=== PATIENT | male | born 1975 | race Caucasian/White ===

== ENCOUNTER 2025-03-30 10:46 | Inpatient (IN) | payer OTHER, SELFPAY ==
[2025-03-30] VITALS (53 sets, daily range): BP systolic 101–214; BP diastolic 64–148; PULSE 9–104; RESP 12–25; TEMP 36.6–38.5; O2SAT 88–99; BMI 31.9
--- NOTE | 2025-03-30 | ECHO_ITS ---
Patient Info Name: Jayden Ordaz Age: 49 years : 1975 Gender: Male Ht: 67 in Wt: 218 lbs BSA: 2.20 m2 HR: 80 bpm BP: 160 / 113 mmHg Technical Quality: Good Exam Date: 03/30/2025 12:56 PM Patient Status: O Admit Date: 03/30/2025 Exam Type: CA echo doppler w bubble study Complete two-dimensional, color flow and Doppler transthoracic echocardiogram is performed with agitated saline. Staff Referring Physician: Christopher Arguelles Accounts Receivable Manager: Davide Hancock III Attending Provider: Marii Grissom Contrast/Agitated Saline Contrast/Ag. Saline: Agitated Saline Amount: 12.00 ml Administered By: Davide Hancock III Existing IV Access: Yes IV Access Condition: patent with no signs of infiltration Summary 1. Left ventricular systolic function is normal, estimated at 50-55. 2. There is mildly increased left ventricular wall thickness. 3. The left ventricular diastolic function is grade I diastolic dysfunction. 4. The apical septum, apical cap, basal anteroseptal, and mid anteroseptal are hypokinetic. 5. Intact interatrial septum visualized by agitated saline imaging. 6. There is mild mitral valve regurgitation. Left Ventricle Left ventricular chamber dimension is normal. Left ventricular systolic function is normal, estimated at 50-55. There is mildly increased left ventricular wall thickness. Left ventricular septal wall motion is normal. The left ventricular diastolic function is grade I diastolic dysfunction. The apical septum, apical cap, basal anteroseptal, and mid anteroseptal are hypokinetic. Right Ventricle Right ventricular chamber dimension is normal. Right ventricular systolic function is normal. Left Atria Left atrial chamber dimension is normal. Right Atria Right atrial chamber dimension is normal. Atrial Septum Intact interatrial septum visualized by agitated saline imaging. Aortic Valve The aortic valve is trileaflet. There is no aortic valve sclerosis. There is no aortic valve stenosis. There is no aortic valve regurgitation. Pulmonic Valve The pulmonic valve is normal. There is no pulmonic valve stenosis. There is no pulmonic regurgitation. Mitral Valve The mitral valve has normal leaflets. There is no mitral valve stenosis. There is mild mitral valve regurgitation. Tricuspid Valve The tricuspid valve leaflets are normal. There is no significant tricuspid valve stenosis. There is no tricuspid valve regurgitation. Pericardium/Pleural The pericardium appears normal. There is no pericardial effusion. Inferior Vena Cava Normal inferior vena cava with >50% collapse upon inspiration consistent with normal right atrial pressure, 5 mmHg. Aorta The aortic root size at the sinus of Valsalva is normal. The prox ascending aorta size is normal. Left Ventricular Outflow Tract Name Value Normal LVOT 2D LVOT Diameter 2.4 cm LVOT Doppler LVOT Peak Velocity 70 cm/s LVOT Peak Gradient 2 mmHg LVOT Mean Gradient 1 mmHg LVOT VTI 16 cm LVOT VTI/AV VTI Ratio 1.0 LVOT Stroke Volume 73 ml LVOT CO 5.4 l/min LVOT CI 2.5 l/min/m2 Pulmonic Valve Name Value Normal PV Doppler PV Peak Velocity 92 cm/s PV Peak Gradient 3 mmHg PV Mean Gradient 2 mmHg Mitral Valve Name Value Normal MV Doppler MV Peak Gradient 3 mmHg MV Mean Gradient 1 mmHg MV Area (Cont Eq VTI) 5.0 cm2 MV Diastolic Function MV E Peak Velocity 57 cm/s MV A Peak Velocity 78 cm/s MV E/A 0.7 MV Decel Time (PW) 124 ms MV Annular TDI MV E/e' (Septal) 11.1 MV E/e' (Lateral) 11.5 MV E/e' (Average) 11.3 Tricuspid Valve Name Value Normal Estimated PAP/RSVP RA Pressure 5 mmHg <=5 TV Annular TDI TV Lateral Gladys s' Velocity 15.5 cm/s >=9.5 Aortic Valve Name Value Normal AV Doppler AV Peak Velocity 90 cm/s AV Peak Gradient 3 mmHg AV Mean Gradient 2 mmHg AV VTI 16 cm AV Area (Cont Eq VTI) 4.5 cm2 >=3.0 AV Area (Cont Eq Raji) 3.5 cm2 AV DI (Raji) 0.78 AV Regurgitation 2D LVOT Area 4.5 cm2 Ventricles Name Value Normal LV Dimensions 2D/MM IVS Diastolic Thickness (2D) 1.0 cm 0.6-1.0 LVID Diastole (2D) 5.1 cm 4.2-5.8 LVIW Diastolic Thickness (2D) 1.2 cm 0.6-1.0 LVID Systole (2D) 4.1 cm 2.5-4.0 LVOT Diameter 2.4 cm LV Mass (2D Cubed) 217.04 g 88.00-224.00 LV Mass Index (2D Cubed) 99 g/m2 49-115 Relative Wall Thickness (2D) 0.47 <=0.42 LV Fractional Shortening/Ejection Fraction 2D/MM LV Fractional Shortening (2D) 21 % 25-43 LV EF (2D Teichholz) 42 % LV Diastolic Volume (4C MOD) 74 ml LV EF (4C MOD) 51 % LV Diastolic Volume (2C MOD) 74 ml LV EF (2C MOD) 40 % LV Diastolic Volume (BP MOD) 77 ml 62-150 LV Diastolic Volume Index (BP MOD) 35 ml/m2 34-74 LV Systolic Volume (BP MOD) 40 ml 21-61 LV Systolic Volume Index (BP MOD) 18 ml/m2 11-31 LV EF (BP MOD) 48 % 52-72 LV Diastolic Length (4C) 8.0 cm LV Systolic Length (4C) 8.2 cm LV Stroke Volume (4C MOD) 38 ml Atria Name Value Normal LA Dimensions LA Volume (4C A-L) 51 ml LA Volume (BP A-L) 60 ml RA Dimensions RA Systolic Major [place] Length (4C) 5.5 cm 2.1-2.7 RA Area (4C) 16.5 cm2 <=18.0 Wall Motion Scoring Report Signatures
--- NOTE | ~2025-03-30 | XR_ITS ---
EXAMINATION: XR chest 1V portable DATE: 03/30/2025 11:43 INDICATION: Shortness of breath. Presyncope. Left arm pain. TECHNIQUE: frontal view of the chest was obtained. COMPARISON: Chest radiograph dated 07/26/2016 FINDINGS: Subtle increased interstitial pattern in the bilateral lower lungs with multiple peripheral Adelia B-lines at the bilateral mid to lower lung zones consistent with mild pulmonary edema. No pleural effusion or pneumothorax. The cardiomediastinal silhouette is normal. IMPRESSION: 1. Mild pulmonary edema in the mid to lower lungs. Reviewed, dictated and finalized at location A.
--- NOTE | ~2025-03-30 | CT_ITS ---
EXAMINATION: CT brain wo con DATE: 03/30/2025 13:47 INDICATION: Hypertension TECHNIQUE: Computed tomography (CT) of the head was performed without intravenous contrast. Sagittal and coronal reconstructions were performed. The mA was adjusted according to patient size. Iterative reconstruction technique was employed. The dose-length product was 681.00 mGy-cm. COMPARISON: None FINDINGS: No acute intracranial hemorrhage, acute infarction or abnormal extra axial fluid collection. There is mild scattered white matter hypoattenuation consistent with chronic small vessel ischemic disease. Ventricles are normal and symmetric. No mass/mass effect. Mild mucosal thickening in the left ethmoid sinus. The orbits and mastoid air cells are normal. IMPRESSION: 1. No acute intracranial process. 2. Mild scattered white matter hypoattenuation consistent with chronic small vessel ischemic disease. Reviewed, dictated and finalized at location A. IMPRESSION: 1. No acute intracranial process. 2. Mild scattered white matter hypoattenuation consistent with chronic small ve ssel ischemic disease.
--- NOTE | ~2025-03-30 | XR_ITS ---
Examination: XR chest 1V portable Clinical History: Hypoxia Comparison: 03/30/2025 Technique: Portable AP Findings: Heart size normal. Diffusely increased interstitial markings. Linear atelectasis right midlung. No sizable pleural effusion. No acute bony abnormality. IMPRESSION: 1. Interstitial pulmonary edema. Reviewed, dictated and finalized at location R.
--- NOTE | ~2025-03-30 | US_ITS ---
Examination: Ultrasound of the retroperitoneum including kidneys and bladder. Clinical History: Elevated creatinine . Comparison: CTA chest abdomen pelvis earlier same day. Findings: Right kidney: 11 cm. Normal echogenicity. No collecting system dilatation. No shadowing calculi. Exophytic cyst on CT not identified. Left kidney: 11 cm. Normal echogenicity. No collecting system dilatation. No shadowing calculi. Interpolar cyst Urinary bladder: No wall thickening or focal abnormality. IMPRESSION: 1. No acute findings Reviewed, dictated and finalized at location R. IMPRESSION: 1. No acute findings
--- NOTE | ~2025-03-30 | CT_ITS ---
EXAMINATION: CTA chest abdomen pelvis DATE: 03/30/2025 13:56 INDICATION: Hypertensive emergency. Assess for aortic dissection. TECHNIQUE: Computed tomographic angiography (CTA) of the chest, abdomen and pelvis was performed with 100 mL Omnipaque-350 intravenous contrast. Additional 3D reconstructions utilizing rotating maximum intensity projection (MIP) were performed. Automated exposure control and iterative reconstruction technique were employed. The dose-length product was 1447.67 mGy-cm. COMPARISON: None FINDINGS: Chest: Partially expiratory phase of imaging with some respiratory motion and mild dependent atelectasis in both lungs no pneumonia, pulmonary edema, pleural effusion or pneumothorax. Heart size is normal. Atherosclerotic coronary artery disease with calcifications and/or stenting along the left anterior descending coronary artery. No pericardial effusion. Thoracic aorta is normal in caliber with no dissection. No pathologically enlarged thoracic lymphadenopathy. Mild to moderate thoracic spondylosis. Abdomen and pelvis: Diffuse hepatic steatosis. Gallbladder, spleen, pancreas, bilateral adrenal glands are normal. Bilateral renal cysts the largest on the left measuring 1.7 cm. Moderate-sized fat-containing left inguinal hernia. Large right inguinal hernia containing fat and a loop of distal ileum. No abnormal bowel wall thickening or obstruction. Normal appendix. Bladder is normal. No free intraperitoneal gas or fluid. No pathologically enlarged abdominal or pelvic lymphadenopathy. There is mild scattered nonhemodynamically significant calcified atherosclerosis of the normal caliber aorta and along the bilateral internal iliac and common femoral arteries. No aortic dissection. Mild to moderate lumbar spondylosis. IMPRESSION: 1. Normal caliber aorta with no dissection. No acute cardiopulmonary disease or acute intra-abdominal/pelvic process. 2. Large right inguinal hernia containing fat and nonobstructed loop of distal ileum and moderate-sized fat-containing left inguinal hernia. Reviewed, dictated and finalized at location A.
--- NOTE | 2025-03-30 10:56 | ECG_ITS ---
Test Date: 2025-03-30 11:00:50 Measurements Intervals [place] Rate: 90 P: 36 IN: 132 QRS: 4 QRSD: 98 T: 32 QT: 363 QTc: 446 Interpretive Statements SINUS RHYTHM LEFT ATRIAL ENLARGEMENT LEFT VENTRICULAR HYPERTROPHY CANNOT R/O SEPTAL INFARCT, AGE INDETERMINATE BORDERLINE ST-T WAVE ABNORMALITY- INFERIOR LEADS ABNORMAL ECG No previous ECG available for comparison Electronically Signed On 03-30-2025 11:12:01 CDT by Bradley Horne D.O.
[2025-03-30] MEDS: NITROGLYCERIN OINTMENT 1 INCH DOSE TRANSDERM (11:14)
[2025-03-30] MEDS: NITROGLYCERIN SL 0.4 MG TABLET SUBLINGUAL (11:15)
--- OUTSIDE RECORDS SUMMARY | 2025-03-30 11:17 | XMS_ITS | Clinical Summary ---
Author Organization [facility] Address [address] [place] [address] Care Team Providers Care Geriatric Assistant Name Role Phone Unavailable Primary Care Provider Unavailabl e Source Comments [facility],non-owned Affiliates and Associated Physician Practices is amultiple site organization consisting of ambulatory clinics and hospital sitesin [place], [place], [place] and [place]. This disclosure is being madepursuant to the Care Everywhere program and may not contain all information available regarding this patient. Last updated 18.[facility] Allergies No known active allergies Medications * Be aware that medications may not be up to date on this document. Alwaysverify current medications with the patient. 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 Gender Identity Not on file Sexual Orientation Not on file Last Filed Vital Signs Vital Sign Reading Time Taken Comments Blood Pressure 209/146 07/26/2016 2:36 PM DRYING EQUIPMENT OPERATOR Pulse 89 07/26/2016 2:32 PM DRYING EQUIPMENT OPERATOR Temperature 36.8 C (98.2 F) 07/26/2016 2:32 PM DRYING EQUIPMENT OPERATOR Respiratory Rate 18 07/26/2016 2:32 PM DRYING EQUIPMENT OPERATOR Oxygen Saturation 98% 07/26/2016 2:32 PM DRYING EQUIPMENT OPERATOR Inhaled Oxygen Concentration - - Weight 99.3 kg (219 lb) 07/26/2016 2:32 PM DRYING EQUIPMENT OPERATOR Height 172.7 cm (5' 8) 07/26/2016 2:32 PM DRYING EQUIPMENT OPERATOR Body Mass Index 33.3 07/26/2016 2:32 PM DRYING EQUIPMENT OPERATOR Plan of Treatment Health Maintenance Due Date Last Done Comments AMRIK (AGES 45-75) - COL ON CA SCREENING 1975 COLON MONITORING 1975 COLONOSCOPY - COLON CA SCREENING 1975 CT COLONOGRAPHY - COLON CA SCREENING 1975 Colorectal Cancer Screening 1975 FIT - COLON CA SCREENING 1975 FLEX SIG - COLON CA SCREENING 1975 LIPID TESTING 1975 HIV SCREENING 1991 HEPATITIS C SCREENING 04/29/1994 DTAP/TDAP/TD VACCINES (1 - Tdap) 1995 HEPATITIS B VACCINE (1 of 3 - 19+ 3-dose series) 1995 DEPRESSION SCREENING 06/29/2024 COVID-19 VACCINE (1 - 2023-2 5 season) 2025 INFLUENZA VACCINE (#1) 2025 ZOSTER VACCINE (1 of 2) 2026 HIB VACCINE Aged Out No longer eligi ble based on patient's age to complete this topic HPV VACCINE Aged Out No longer eligi ble based on patient's age to complete this topic MENINGOCOCCAL (Group B) VACC INE SHARED DECISION-MAKING Aged Out No longer eligibl e based on patient's age to complete this topic MENINGOCOCCAL GROUPS A/C/Y/W VACCINE Aged Out No longer eligible b ased on patient's age to complete this topic PNEUMOCOCCAL VACCINE Aged Out No long er eligible based on patient's age to complete this topic Insurance
--- OUTSIDE RECORDS SUMMARY | 2025-03-30 11:17 | XMS_ITS | Clinical Summary ---
Author Organization [facility] Address [id number] [place] [id number] Care Team Providers Care Indexer Name Role Phone Unknown, Notinfile Primary Care Provider Unavail able Allergies No known active allergies Medications amLODIPine (NORVASC) 10 mg tablet Take 10 mg by mouth daily. Active lisinopril (PRINIVIL,ZESTR IL) 40 mg tablet Take 40 mg by mouth daily. Active carvedilol (COREG) 12.5 mg tabletIndicatio ns:cardiovascul ar disease Take 1 tablet (12.5 mg total) by mouth every 12 (twelve) hours. 60 tablet 6 8 Active atorvastatin (LIPITOR) 80 mg tabletIndicatio ns:myocardial infarction prevention Take 1 tablet (80 mg total) by mouth nightly. 30 tablet 6 8 Active aspirin 81 mg tabletIndicatio ns:cardiovascul ar disease Take 1 tablet (81 mg total) by mouth daily. 30 tablet 6 8 Active ticagrelor (BRILINTA) 90 mg tabletIndicatio ns:cardiovascul ar disease Take 1 tablet (90 mg total) by mouth 2 (two) times a day. 60 tablet 6 8 Active Additional Information Patient not taking.Reported on 11/22/2019 chlorthalidone 25 mg tablet Take 1 tablet (25 mg total) by mouth daily. 30 tablet 8 Active Additional Information Patient not taking.Reported on 11/22/2019 famotidine (PEPCID) 20 mg tablet Take 1 tablet (20 mg total) by mouth daily for 7 days. 7 tablet 8 Active Active Problems Problem Noted Date Diagnosed Date Hyperlipidemia 11/22/2019 History of percutaneous coronary intervention Hypertension 08/12/2017 JUDY (acute kidney injury) 08/12/2017 Old [place] (myocardial infarction) 08/12/2017 Retroperitoneal hematoma 08/12/2017 Postoperative hypovolemic shock 08/12/2017 Colitis Viral gastritis Hypokalemia Coronary artery disease invo lving [place] coronary artery of [place] heart without angina pectoris Assessment & Plan (11/22/2019 3:59 PM CDT): The patient is asymptomatic with a normal EKG. Since his acute DC was due to total occlusion of the proximal LAD I have recommended a surveillance stress test. The patient declines at this time. I will see him in the office again in 6 months. 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 Gender Identity Not on file Sexual Orientation Not on file Obstetrics History Last Filed Vital Signs Vital Sign Reading Time Taken Comments Blood Pressure 110/62 11/22/2019 1:41 PM CDT Pulse 68 11/22/2019 1:41 PM CDT Temperature 36.3 C (97.3 F) 11/22/2019 1:41 PM CDT Respiratory Rate 18 11/22/2019 1:41 PM CDT Oxygen Saturation 98% 11/22/2019 1:41 PM CDT Inhaled Oxygen Concentration - - Weight 108 kg (238 lb) 11/22/2019 1:41 PM CDT Height 172.7 cm (5' 8) 11/22/2019 1:41 PM CDT Body Mass Index 36.19 11/22/2019 1:41 PM CDT Plan of Treatment Not on file Medical Devices Implanted Type Area Vice President Risk Management Device Identifier Shelf Expiration Date Model / Serial / Lot System Coronary Stent Xience Alpine Everolimus Eluting Cocr L15 Mm L145 Cm Od3.5 Mm Rapid Exchange Radiopaque 1 Access Port Accepts .014- In Guidewire - [id number] Implanted:Qty: 1 on 08/12/2017 by Chace Project BuilderMD at [facility] [id number] Insurance [employer] OPEN ACCESS Advance Directives For more information, please contact: [phone] * Full Code (Latest Code Status on File) Date Activated Date Inactivated Comments 09/13/2017 3:03 AM 09/15/2017 12:37 AM * Full Code Date Activated Date Inactivated Comments 08/12/2017 8:41 PM 08/15/2017 5:54 PM * Full Code Date Activated Date Inactivated Comments 08/12/2017 7:37 PM 08/12/2017 8:41 PM Care Teams Indexer Relationship Specialty Start Date End Date Unknown, Notinfile PCP - General 08/12/17
[2025-03-30 11:20] LABS: Hematocrit 42.6 % (42.0-52.0); Hemoglobin 14.9 g/dL (14.0-18.0); Immature Granulocyte Percent A 0.5 % (0-0.5); Lymphocytes Absolute Auto 2.03 K/mm3 (0.9-3.2); Mean Corpuscular HGB Conc 35.0 g/dl (32-36); Mean Corpuscular Hemoglobin 29.3 pg (26-34); Mean Corpuscular Volume 83.7 fl (80-100); Nucleated Red Blood Cells Absolute Auto 0.000 K/mm3 (0.0-0.012); Nucleated Red Blood Cells Perc 0.0 % (0.0-0.2); Platelet Count Result 204 k/mm3 (150-375); Red Blood Count 5.09 M/mm3 (4.6-6.20); White Blood Count 8.9 K/mm3 (4.5-10.0)
[2025-03-30 11:30] LABS: INR 1.0; Partial Thromboplastin Time 22.5 Seconds (22.3-36.8); Prothrombin Time 13.0 Seconds (11.1-14.7)
--- NOTE | 2025-03-30 11:30 | ECG_ITS ---
Test Date: 2025-03-30 11:31:27 Measurements Intervals [place] Rate: 87 P: 19 MI: 138 QRS: -6 QRSD: 96 T: 34 QT: 410 QTc: 493 Interpretive Statements SINUS RHYTHM LEFT ATRIAL ENLARGEMENT ST ELEVATION IN ANTERIOR LEADS- CONSIDER PERICARDITIS, ACUTE INJURY OR EARLY REPOLARIZATION ABNORMALITY ABNORMAL ECG Compared to ECG 03/30/2025 11:00:50 ST ELEVATION UNCHANGED Electronically Signed On 03-30-2025 11:51:03 CDT by Bradley Horne D.O.
[2025-03-30 11:31] LABS: Alanine Aminotransferase 54 U/L (6-50); Albumin Level 4.3 g/dL (3.5-5.1); Alkaline Phosphatase 101 U/L (38-126); Anion Gap 12 mmol/L (4-12); Aspartate Amino Transferase 42 U/L (17-59); Bilirubin,Total 0.8 mg/dL (0.2-1.3); Blood Urea Nitrogen 21 mg/dL (9-20); Calcium 9.1 mg/dL (8.4-10.2); Carbon Dioxide 25 mmol/L (22-30); Chloride 98 mmol/L (98-107); Estimated CRCL calculation 65 ml/min; Estimated Glomerular Filt Rate 54; Glucose 292 mg/dL (65-110); Lipase 161 U/L (23-300); Potassium 3.1 mmol/L (3.4-5.0); Sodium 135 mmol/L (137-145); Total Protein 8.3 g/dL (6.3-8.2)
[2025-03-30 11:41] LABS: Troponin I 0.079 ng/mL (0.000-0.034)
[2025-03-30] MEDS: MORPHINE SULFATE (*CRX) 4 MG/ML INJ IV PUSH (11:41)
--- OUTSIDE RECORDS SUMMARY | 2025-03-30 12:04 | XMS_ITS | Clinical Summary ---
Author Organization [facility] Address [address] [place] [address] Care Team Providers Care Operations Section Manager Name Role Phone Unavailable Primary Care Provider Unavailabl e Source Comments [facility],non-owned Affiliates and Associated Physician Practices is amultiple site organization consisting of ambulatory clinics and hospital sitesin [place], [place], [place] and [place]. This disclosure is being madepursuant to the Care Everywhere program and may not contain all information available regarding this patient. 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 Gender Identity Not on file Sexual Orientation Not on file Last Filed Vital Signs Vital Sign Reading Time Taken Comments Blood Pressure 209/146 07/26/2016 2:36 PM CASE MANAGEMENT ASSOCIATE Pulse 89 07/26/2016 2:32 PM CASE MANAGEMENT ASSOCIATE Temperature 36.8 C (98.2 F) 07/26/2016 2:32 PM CASE MANAGEMENT ASSOCIATE Respiratory Rate 18 07/26/2016 2:32 PM CASE MANAGEMENT ASSOCIATE Oxygen Saturation 98% 07/26/2016 2:32 PM CASE MANAGEMENT ASSOCIATE Inhaled Oxygen Concentration - - Weight 99.3 kg (219 lb) 07/26/2016 2:32 PM CASE MANAGEMENT ASSOCIATE Height 172.7 cm (5' 8) 07/26/2016 2:32 PM CASE MANAGEMENT ASSOCIATE Body Mass Index 33.3 07/26/2016 2:32 PM CASE MANAGEMENT ASSOCIATE Plan of Treatment Health Maintenance Due Date [...]
--- OUTSIDE RECORDS SUMMARY | 2025-03-30 12:04 | XMS_ITS | Clinical Summary ---
Author Organization [facility] Address [address] [place] [id number] Care Team Providers Care Icing Mixer Name Role Phone Unknown, Notinfile Primary Care [...] 08/12/2017 JUDY (acute kidney injury) 08/12/2017 Old [place] (myocardial infarction) 08/12/2017 Retroperitoneal hematoma 08/12/2017 Postoperative hypovolemic shock 08/12/2017 Colitis Viral gastritis Hypokalemia Coronary artery disease invo lving [place] coronary artery of [place] heart without angina pectoris Assessment & Plan (11/22/2019 3:59 PM CDT): The patient is asymptomatic with a normal EKG. 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 Gender Identity Not on file Sexual Orientation [...] on file Medical Devices Implanted Type Area Border Patrol Agent Device Identifier Shelf Expiration Date Model / Serial / Lot System Coronary Stent Xience Alpine Everolimus Eluting Cocr L15 Mm L145 Cm Od3.5 Mm Rapid Exchange Radiopaque 1 Access Port Accepts .014- In Guidewire - [id number] Implanted:Qty: 1 on 08/12/2017 by Chace Complaint SpecialistMD at [facility] [id number] Insurance [employer] OPEN ACCESS Advance Directives For more information, please contact: [phone] * Full Code (Latest Code Status on File) Date Activated Date Inactivated Comments 09/13/2017 3:03 AM 09/15/2017 12:37 AM * Full Code Date Activated Date Inactivated Comments 08/12/2017 8:41 PM 08/15/2017 5:54 PM * Full Code Date Activated Date Inactivated Comments 08/12/2017 7:37 PM 08/12/2017 8:41 PM Care Teams Icing Mixer Relationship Specialty Start Date End Date Unknown, Notinfile PCP - General 08/12/17
--- NOTE | 2025-03-30 12:05 | PC.NURSE ---
made aware of pt bp changes to 147/101. Dr. Arguelles VORB to discontinue metoprolol order. Nitro paste removed from chest prior to administration of drip.
[2025-03-30] MEDS: NITROGLYCERIN IV CONT (12:12)
[2025-03-30] MEDS: [UNRECOGNIZED DRUG - OTHER] IV CONT (12:12)
[2025-03-30] MEDS: DEXTROSE 5% IV CONT (12:12)
--- NOTE | 2025-03-30 12:15 | ED.GENADULT ---
HPI - General Adult General Chief complaint: Extremity Problem,Nontraumatic Stated complaint: left arm pain Time Seen by Provider: 03/30/25 11:04 History of Present Illness HPI narrative: 41-year-old male with prior history of MO in 2017 presents to the emergency department for evaluation for left arm pain. Patient states he has been very noncompliant with his blood pressure medications has not taken them in approximately last 2 years. Patient woke up this morning was having pain that radiated to his left arm that was reminiscent of his prior MO. Patient did take a full aspirin prior to arrival. Upon arrival emergency department patient's blood pressure was 214/137. Patient states he was having some radiation of the pain from his arm to his chest. Related Data Home Medications ?Medication ?Instructions ?Recorded ?Confirmed ?Last Taken ?Type aspirin 81 mg tablet 162 mg PO DAILY 03/30/25 03/30/25 03/30/25 History Allergies Allergy/AdvReac Type Severity Reaction Status Date / Time No Known Allergies Allergy Mild Verified 03/30/25 10:48 Review of Systems Review of Systems: All systems reviewed & are unremarkable except as noted in HPI and below PMFSH Past Medical History Medical History Old anteroseptal myocardial infarction CAD (coronary artery disease) Surgical History Surgical History H/O heart artery stent Family History Family History (Updated 03/30/25 @ 15:21 by Chayo Joyce RN) Father Cerebrovascular accident Mother Bladder cancer Social History Social History Social History: And patient denies smoking marijuana use or drug use. He drinks alcohol very occasionally once in 2 weeks. 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 Smoking status: Never smoker Second hand tobacco smoke exposure: Yes Alcohol intake: never Substance use type: does not use Lack of Transportation: No Lack of Food: Never True Current Housing: I Have Housing Concerned About Future Housing: No Difficulty Paying Gas/Electric Bills: No Difficulty Paying for Meds: No Currently Unemployed: No Education: High School Diploma/GED Difficulty w/ Childcare or Family Care: No Spiritual care concerns: No Exam Narrative: APPEARANCE: Uncomfortable appearing HEAD: normocephalic, atraumatic. EYES: PERRLA/EOMI, conjunctivae clear. NOSE: Normal no drainage EARS:TMS clear with good light reflex. THROAT: Pharynx clear, no exudate. NECK: Supple. No adenopathy, no masses. RESPIRATORY: Airway patent, respirations nonlabored. Clear to auscultation bilaterally, no rales, rhonchi, wheezing. CARDIOVASCULAR: Regular rate and rhythm without murmurs rubs or gallops. ABDOMINAL: Soft, nontender, nondistended, normal bowel sounds MUSCULOSKELETAL: Moves all extremities. Strength/ROM intact, No edema, No calf tenderness. NEURO: Alert. Cranial nerves II through XII intact. Good gait. Good coordination SKIN: Warm, dry. Normal Color Course Vital Signs Vital signs: Vital Signs Temperature 98.3 F 03/30/25 10:50 Pulse Rate 89 03/30/25 10:50 Respiratory Rate 20 03/30/25 10:50 Blood Pressure 214/137 H 03/30/25 10:50 Pulse Oximetry 96 03/30/25 10:50 Oxygen Delivery Room Air 03/30/25 10:50 Temperature 97.9 F 03/30/25 16:00 Pulse Rate 90 03/30/25 18:00 Respiratory Rate 18 03/30/25 16:00 Blood Pressure 158/113 H 03/30/25 18:00 Pulse Oximetry 96 03/30/25 16:00 Oxygen Delivery Nasal Cannula 03/30/25 12:18 Oxygen Flow Rate 2 03/30/25 12:18 Medical Decision Making [facility] Narrative Medical decision making narrative: 49-year-old male present to the emergency department for evaluation for hypertensive urgency. Patient had a blood pressure 214/137 with left arm pain upon arrival emergency department. He was treated with sublingual nitro and nitro paste was added this did help his blood pressure but did not affect his arm pain. Patient was also treated with IV morphine. Patient's initial EKG does show some nonspecific ST elevation that appeared to have progression from the EKG from -05 28. I attempted to consult Interventional Cardiology but they were at an outside hospital doing a cardiac catheterization. I did consult Dr. Nation and he came down to see the patient. Plan was to start the patient on a nitro drip and admit the patient to the ICU I did discuss the case with the vice president network and patient was accepted to the ICU. Plan is to start the patient metoprolol tartrate 50 mg b.i.d., 1 mg of Lovenox once the blood pressure is controlled and order a cardiac echo. Cardiac echo was or the emergency department and patient was admitted to the ICU. Critical Care Procedure Note Authorized and Performed by: Christopher Arguelles Total critical care time: Approximately 36 minutes Due to a high probability of clinically significant, life threatening deterioration, the patient required my highest level of preparedness to intervene emergently and I personally spent this critical care time directly and personally managing the patient. This critical care time included obtaining a history; examining the patient; pulse oximetry; ordering and review of studies; arranging urgent treatment with development of a management plan; evaluation of patient's response to treatment; frequent reassessment; and, discussions with other providers. This critical care time was performed to assess and manage the high probability of imminent, life-threatening deterioration that could result in multi-organ failure. It was exclusive of separately billable procedures and treating other patients and teaching time. Please see MDM section and the rest of the note for further information on patient assessment and treatment. Differential Diagnosis Differential Diagnosis: Aortic dissection, pulmonary embolism, ACS, shoulder strain, pneumonia, pneumothorax Vital Signs Vital Signs: Vital Signs Temperature 98.3 F 03/30/25 10:50 Pulse Rate 89 03/30/25 10:50 Respiratory Rate 20 03/30/25 10:50 Blood Pressure 214/137 H 03/30/25 10:50 Pulse Oximetry 96 03/30/25 10:50 Oxygen Delivery Room Air 03/30/25 10:50 Temperature 97.9 F 03/30/25 16:00 Pulse Rate 90 03/30/25 18:00 Respiratory Rate 18 03/30/25 16:00 Blood Pressure 158/113 H 03/30/25 18:00 Pulse Oximetry 96 03/30/25 16:00 Oxygen Delivery Nasal Cannula 03/30/25 12:18 Oxygen Flow Rate 2 03/30/25 12:18 Lab Data Lab results reviewed: Yes I reviewed the patient's lab results. 03/30/25 11:08 03/30/25 11:08 Labs: Lab Results 03/30/25 Range/Units 11:08 WBC 8.9 (4.5-10.0) K/mm3 RBC 5.09 (4.6-6.20) M/mm3 Hgb 14.9 (14.0-18.0) g/dL Hct 42.6 (42.0-52.0) % MCV 83.7 (80-100) fl MCH 29.3 (26-34) pg MCHC 35.0 (32-36) g/dl RDW 12.6 (11.5-14.5) % Plt Count 204 (150-375) k/mm3 MPV 11.4 H (7.4-10.4) fl Immature Gran % (Auto) 0.5 (0-0.5) % Neut % (Auto) 66.7 (45.5-73.1) % Lymph % (Auto) 22.9 (18.3-44.2) % [place] % (Auto) 6.8 (2.6-8.5) % Eos % (Auto) 2.4 (0-4.4) % Baso % (Auto) 0.7 (0.2-1.2) % Lymph # (Auto) 2.03 (0.9-3.2) K/mm3 [place] # (Auto) 0.6 (0.1-0.6) K/mm3 Eos # (Auto) 0.2 (0-0.3) K/mm3 Baso # (Auto) 0.1 (0.0-0.1) K/mm3 Abs Immat Gran (auto) 0.04 H (0.00-0.031) K/mm3 Absolute Neuts (auto) 5.9 (1.3-6.7) K/mm3 Absolute Nucleated RBC 0.000 (0.0-0.012) K/mm3 Nucleated RBC % 0.0 (0.0-0.2) % PT 13.0 (11.1-14.7) Seconds INR 1.0 APTT 22.5 (22.3-36.8) Seconds Sodium 135 L (137-145) mmol/L Potassium 3.1 L (3.4-5.0) mmol/L Chloride 98 (98-107) mmol/L Carbon Dioxide 25 (22-30) mmol/L Anion Gap 12 (4-12) mmol/L BUN 21 H (9-20) mg/dL Creatinine 1.40 H (0.7-1.3) mg/dL Estim Creat Clear Calc 65 ml/min Estimated GFR 54 L (59 - ) Glucose 292 H (65-110) mg/dL Hemoglobin A1c 8.9 H (<5.7) % Calcium 9.1 (8.4-10.2) mg/dL Total Bilirubin 0.8 (0.2-1.3) mg/dL AST 42 (17-59) U/L ALT 54 H (6-50) U/L Alkaline Phosphatase 101 (38-126) U/L Total Creatine Kinase 202 H (55-170) U/L Troponin I 0.079 H* (0.000-0.034) ng/mL Total Protein 8.3 H (6.3-8.2) g/dL Albumin 4.3 (3.5-5.1) g/dL Triglycerides 386 H (<150) mg/dL Cholesterol 188 (0-200) mg/dL LDL Cholesterol Direct 64 mg/dL HDL Direct 33 mg/dL Lipase 161 (23-300) U/L TSH (Reflex) 2.880 (0.465-4.68) uIU/mL Imaging Data Radiologist's impression: Impressions Chest X-Ray 03/30/25 11:48 IMPRESSION: 1. Mild pulmonary edema in the mid to lower lungs. ECG Data EKG #1: EKG Interpretation: normal rate, sinus rhythm, non-specific ST changes, ST elevation, normal QRS and NL axis Critical Care Time Critical Care Time Critical Care Time: Yes Total Critical Care Time: 36 Discharge Plan Discharge Clinical Impression: Hypertensive emergency, NSTEMI (non-ST elevated myocardial infarction) CAD (coronary artery disease) Qualifiers: Coronary Disease-Associated Artery/Lesion type: [place] artery [place] vs. transplanted heart: [place] heart Associated angina: with unstable angina Qualified Code(s): I25.110 - Atherosclerotic heart disease of [place] coronary artery with unstable angina pectoris Patient Disposition: Still a Patient Condition: Serious Quality HEART score for chest pain patients History: moderately suspicious ECG: non specific repolarization disturbance/LBTB/PM Age: > 45 and < 65 years Risk factors: > or = to 3 risk factors of atherosclerotic disease Troponin: > 1 and < 3x normal limit Heart score: 6
--- NOTE | 2025-03-30 12:49 | WPDCNINT ---
Assessment and Plan Assessment and plan (1) NSTEMI (non-ST elevated myocardial infarction): Code(s): I21.4 - Non-ST elevation (NSTEMI) myocardial infarction Status: Acute Assessment and Plan: Presented with left arm pain which I although appears noncardiac in nature but patient states that pain is similar to the 1 he had when he had MO in 2017 Noncompliant with medications Abnormal EKG and elevated troponin Evaluated by Cardiology in ER and diagnosed with NSTEMI Serial troponin Patient is going for CTA of chest to rule out dissection. Once ruled out patient was started on antiplatelet therapy and heparin infusion Nitroglycerin infusion and p.r.n. morphine Statin Echo (2) Hypertensive emergency: Code(s): I16.1 - Hypertensive emergency Status: Acute Assessment and Plan: Presented with high blood pressure and elevated troponin Started on nitroglycerin infusion Check head CT (3) Hyperglycemia: Code(s): R73.9 - Hyperglycemia, unspecified Status: Acute Assessment and Plan: Check HbA1c and TSH SSI for monitoring and management at this time (4) Elevated serum creatinine: Code(s): R79.89 - Other specified abnormal findings of blood chemistry Status: Acute Assessment and Plan: Creatinine elevated with baseline unknown. Check CK, urine electrolytes, UA, renal ultrasound IV fluids Monitor urine output electrolytes and creatinine If creatinine worsens will consult nephrology Plan DVT prophylaxis -patient will be started on anticoagulation Nutrition -diet ordered Code Status - Full Code Total Critical Care Time - 30 minutes Due to a high probability of clinically significant, life threatening deterioration, the patient required my highest level of preparedness to intervene emergently and I personally spent this critical care time directly and personally managing the patient. This critical care time included obtaining a history; examining the patient; pulse oximetry; ordering and review of studies; arranging urgent treatment with development of a management plan; evaluation of patient's response to treatment; frequent reassessment; and discussions with other providers. It was exclusive of separately billable procedures and treating other patients and teaching time. 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 Patient states that he woke up with left arm pain which was similar to the pain he had when he had a heart attack in 2017. He denies any chest pain shortness a breath cough nausea vomiting palpitations dizziness lightheadedness abdominal pain diarrhea constipation hematochezia melena dysuria fever. Pain is 10 out 10, no radiation, no aggravating or relieving factor, achy in quality. Movement at the shoulder or hand does not make any difference with the pain. He took some aspirin today and presented to the hospital. All other systems were reviewed and were negative In ER patient was found to be hypertensive with blood pressure 214/[address]-elevation and T-wave abnormality WBC normal at 8.9 hemoglobin 14.9, normal coag Potassium 3.1 creatinine 1.4 glucose 292 Troponin 0.079 Cardiology was consulted in the ER and core maker felt the patient has NSTEMI after reviewing EKG. Patient was given sublingual nitro followed by nitro paste and then was started on nitroglycerin infusion. Plan was to start anticoagulation once blood pressure is better controlled Review of Systems Review of Systems: All systems reviewed & are unremarkable except as noted in HPI and below (HPI) [facility] Past Medical History Medical History Old anteroseptal myocardial infarction CAD (coronary artery disease) Surgical History Surgical History H/O heart artery stent Social History Social History Social History: And patient denies smoking marijuana use or drug use. He drinks alcohol very occasionally once in 2 weeks. 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 Home Medications and Allergies Home Medications ?Medication ?Instructions ?Recorded ?Confirmed ?Type aspirin 81 mg tablet 162 mg PO DAILY 03/30/25 03/30/25 History Allergies Allergy/AdvReac Type Severity Reaction Status Date / Time No Known Allergies Allergy Mild Verified 03/30/25 10:48 Vital Signs Vital Signs - 24 hr 03/30/25 10:50 03/30/25 11:09 03/30/25 11:10 Temperature 36.8 C Pulse Rate 89 96 91 Respiratory Rate 20 21 H Blood Pressure 214/137 H 206/148 H Pulse Oximetry 96 97 96 Oxygen Delivery Room Air Oxygen Flow Rate 03/30/25 11:12 03/30/25 11:15 03/30/25 11:16 Temperature Pulse Rate 91 85 85 Respiratory Rate 17 14 21 H Blood Pressure 206/148 H 203/141 H Pulse Oximetry 95 96 97 Oxygen Delivery Oxygen Flow Rate 03/30/25 11:30 03/30/25 11:37 03/30/25 12:04 Temperature Pulse Rate 90 82 75 Respiratory Rate 17 18 14 Blood Pressure 173/118 H 147/101 H Pulse Oximetry 92 93 95 Oxygen Delivery Oxygen Flow Rate 03/30/25 12:12 03/30/25 12:18 03/30/25 12:18 Temperature Pulse Rate 74 70 Respiratory Rate 12 Blood Pressure 156/113 H 158/108 H Pulse Oximetry 88 L 96 Oxygen Delivery Room Air Oxygen Flow Rate 03/30/25 12:18 03/30/25 12:28 03/30/25 12:42 Temperature Pulse Rate 80 81 Respiratory Rate Blood Pressure 160/113 H 170/123 H Pulse Oximetry 96 Oxygen Delivery Nasal Cannula Oxygen Flow Rate 2 03/30/25 12:44 Temperature Pulse Rate 78 Respiratory Rate 12 Blood Pressure 170/123 H Pulse Oximetry 96 Oxygen Delivery Oxygen Flow Rate Exam Narrative: General: Pt is alert awake and in NAD Lungs/Chest: Trachea central Clear BS B/L, No crackles or wheezing. Cardiac: RRR. Normal S1 S2. No murmurs Circulation: Pedal pulses are intact and symmetrical. Abdomen: Normal bowel sounds.. Soft. NT. ND. Extremities: No clubbing, cyanosis or edema. Warm left shoulder has no tenderness redness or swelling. : [place] in place Neurologic: Follows commands. Moves all 4 extremities PERRL, no FND heparin, normal speech and affect, of muscle strength is symmetric in both arms and legs and, no facial asymmetry Skin: No Rash Results Labs 03/30/25 11:08 03/30/25 11:08 Labs: Impressions Chest X-Ray 03/30/25 11:48 IMPRESSION: 1. Mild pulmonary edema in the mid to lower lungs. Short CBC 03/30/25 Range/Units 11:08 WBC 8.9 (4.5-10.0) K/mm3 Hgb 14.9 (14.0-18.0) g/dL Hct 42.6 (42.0-52.0) % Plt Count 204 (150-375) k/mm3 BMP 03/30/25 11:08 Sodium 135 L Potassium 3.1 L Chloride 98 Carbon Dioxide 25 BUN 21 H Creatinine 1.40 H Glucose 292 H Calcium 9.1 Cardiac Enzymes 03/30/25 Range/Units 11:08 Troponin I 0.079 H* (0.000-0.034) ng/mL Liver Function 03/30/25 Range/Units 11:08 Total Bilirubin 0.8 (0.2-1.3) mg/dL AST 42 (17-59) U/L ALT 54 H (6-50) U/L Alkaline Phosphatase 101 (38-126) U/L Albumin 4.3 (3.5-5.1) g/dL Quality VTE Prophylaxis VTE prophylaxis: mechanical ordered and pharmacologic ordered Hospitalist MIPS Advance Care Plan I have confirmed that the patient's Advanced Care Plan is present, code status is documented, or surrogate decision maker is listed in patient medical record.: Yes Medication Reconciliation I have utilized all available resources to obtain, update and review the patients current medications (includes all prescriptions, OTC, herbals, cannabis, and nutritional supplements).: Yes
[2025-03-30 13:27] LABS: Cholesterol 188 mg/dL (0-200); Creatine Kinase 202 U/L (55-170); HDL Direct 33 mg/dL; Triglycerides 386 mg/dL (<150)
--- NOTE | 2025-03-30 13:35 | PM.CNCAR ---
Assessment and Plan Assessment and plan (1) Old anteroseptal myocardial infarction: Code(s): I25.2 - Old myocardial infarction Status: Acute (2) NSTEMI (non-ST elevated myocardial infarction): Code(s): I21.4 - Non-ST elevation (NSTEMI) myocardial infarction Status: Acute (3) Elevated serum creatinine: Code(s): R79.89 - Other specified abnormal findings of blood chemistry Status: Acute Plan Impression: 1. Patient with known history of coronary disease and acute microinfarction back in 2018. Subsequent coronary angiography revealed total occlusion of the left anterior descending artery. She is post acute intervention with placement of drug-eluting stent. Patient has been noncompliant for his cardiology follow-up. 2. Accelerated hypertension on this admission. Patient is noncompliant with his medications. Blood pressure was as high as 214/137 mm of mercury. Patient was given sublingual nitroglycerin. 3. Acute non ST segment elevation myocardial infarction. EKG reveals old anteroseptal myocardial infarction with mild ST changes which likely represents dyskinesis involving anterior wall from previous myocardial infarction. 4. Mildly elevated creatinine in 1.4. 5. Persistent left arm pain. Likely secondary to accelerated hypertension. Could also be from acute myocardial infarction. Recommendations; Patient was evaluated in the emergency room and plan discussed with the emergency room staff and physicians. 1. Metoprolol 5 mg IV push followed by IV nitroglycerin drip. 2. Start patient on metoprolol tartrate 50 mg b.i.d. will avoid LISBETH inhibitors at the present time due to elevated creatinine of 1.4. 3. Start patient on full-dose subcu Lovenox since blood pressure is improved. Consider 1 milligram/kg subQ b.i.d.. 4. Echocardiogram to evaluate previous myocardial infarction and wall motion abnormalities. 5. Lipid profile. Start patient on Lipitor 40 mg at bedtime. 6. Amlodipine 5 mg daily. Start today 7. IV hydralazine as needed for hypertension more than 180/90 mm of mercury. 8. Aspirin 325 mg chew and swallow followed by baby aspirin 81 mg daily. Further recommendations to follow. Thank you for allowing us to participate in care of this patient. History of Present Illness History of Present Illness Consult date/time: 03/30/25 13:35 Requesting physician: Christopher Arguelles MD Consult reason: chest pain and hypertension Reason For Visit: Hypertensive Emergency Narrative: This is a 49-year-old the gentleman was admitted via emergency room today with complaints of persistent left arm pain. No complaints of chest pain, shortness of breath, diaphoresis or nausea. No complaints of abdominal pain or diarrhea. No complaints of fever or chills. Patient has known history of coronary disease with history of myocardial infarction back in 2018. Patient had a coronary angiography and angioplasty of the LAD with stent placement. Patient has been noncompliant with his follow-up with [employer] and not taking any of his blood pressure medications. Patient started having this left arm pain this morning and took 2 baby aspirins. Patient has history of hypertension but not taking medications regularly. Admitting blood pressure was 214/137 mm of mercury. Resting heart rate was 89 per minute. Patient is afebrile and O2 saturation 96%. Admitting laboratory data reveals WBC count 8.9, hemoglobin is 14.9 and platelets are normal. Sodium 135, potassium 3.1, BUN is 21 creatinine is 1.40. Cardiac troponin mildly elevated at 0.079. Glucose was 292. Patient was examined at the bedside. Patient is awake alert without any complaints of shortness of breath chest pain. Patient has pain in the left upper extremity which is constant and aching in nature. Review of Systems Review of Systems: Twelve point review of system was completed. Pertinent positive and negative findings per HPI. Constitutional negative for weight loss, fever or chills or weakness. Head and neck ROS is negative. Pulmonary negative for shortness of breath, cough or hemoptysis. Cardiovascular negative for chest pain or shortness of breath or palpitations. Gastrointestinal negative for abdominal pain, nausea vomiting or diarrhea. Neurovascular negative for any lightheadedness, syncope, seizures or focal neurological symptoms. Rest of the systems are negative. [facility] Past Medical History Medical History CAD (coronary artery disease) Surgical History Surgical History H/O heart artery stent Social History Social History Social History: And patient denies smoking marijuana use or drug use. He drinks alcohol very occasionally once in 2 weeks. He works in a [employer]. Meds Home Medications and Allergies Home Medications ?Medication ?Instructions ?Recorded ?Confirmed ?Type aspirin 81 mg tablet 162 mg PO DAILY 03/30/25 03/30/25 History Allergies Allergy/AdvReac Type Severity Reaction Status Date / Time No Known Allergies Allergy Mild Verified 03/30/25 10:48 Vital Signs Vital Signs - 24 hr 03/30/25 10:50 03/30/25 11:09 03/30/25 11:10 Temperature 36.8 C Pulse Rate 89 96 91 Respiratory Rate 20 21 H Blood Pressure 214/137 H 206/148 H Pulse Oximetry 96 97 96 Oxygen Delivery Room Air Oxygen Flow Rate 03/30/25 11:12 03/30/25 11:15 03/30/25 11:16 Temperature Pulse Rate 91 85 85 Respiratory Rate 17 14 21 H Blood Pressure 206/148 H 203/141 H Pulse Oximetry 95 96 97 Oxygen Delivery Oxygen Flow Rate 03/30/25 11:30 03/30/25 11:37 03/30/25 12:04 Temperature Pulse Rate 90 82 75 Respiratory Rate 17 18 14 Blood Pressure 173/118 H 147/101 H Pulse Oximetry 92 93 95 Oxygen Delivery Oxygen Flow Rate 03/30/25 12:12 03/30/25 12:18 03/30/25 12:18 Temperature Pulse Rate 74 70 Respiratory Rate 12 Blood Pressure 156/113 H 158/108 H Pulse Oximetry 88 L 96 Oxygen Delivery Room Air Oxygen Flow Rate 03/30/25 12:18 03/30/25 12:28 03/30/25 12:42 Temperature Pulse Rate 80 81 Respiratory Rate Blood Pressure 160/113 H 170/123 H Pulse Oximetry 96 Oxygen Delivery Nasal Cannula Oxygen Flow Rate 2 03/30/25 12:44 03/30/25 13:06 03/30/25 13:31 Temperature Pulse Rate 78 80 81 Respiratory Rate 12 Blood Pressure 170/123 H 167/117 H 166/116 H Pulse Oximetry 96 Oxygen Delivery Oxygen Flow Rate Exam Narrative: Patient was examined at the bedside. Patient is awake alert appears comfortable except for the left arm pain. Head and neck examination is unremarkable. Head is atraumatic. Sclerae nonicteric. ENT examination is negative. Neck is supple. There is no JVD or carotid bruit. Thyroid is not enlarged. There is no cervical lymphadenopathy. Lungs are clear to auscultation percussion. Heart sounds reveal normal S1-S2. No significant murmurs S3 or S4 noted. Rhythm is regular Abdomen is soft and nontender. There is no hepatosplenomegaly. Bowel sounds are present. Neurological examination is intact. Skin and musculoskeletal is normal. Results Labs and Meds 03/30/25 11:08 03/30/25 11:08 Lab results: Cardiac Enzymes 03/30/25 Range/Units 11:08 AST 42 (17-59) U/L Troponin I 0.079 H* (0.000-0.034) ng/mL Coagulation 03/30/25 Range/Units 11:08 PT 13.0 (11.1-14.7) Seconds APTT 22.5 (22.3-36.8) Seconds Lipids 03/30/25 Range/Units 11:08 Triglycerides 386 H (<150) mg/dL Cholesterol 188 (0-200) mg/dL CBC 03/30/25 Range/Units 11:08 WBC 8.9 (4.5-10.0) K/mm3 RBC 5.09 (4.6-6.20) M/mm3 Hgb 14.9 (14.0-18.0) g/dL Hct 42.6 (42.0-52.0) % Plt Count 204 (150-375) k/mm3 Lymph # (Auto) 2.03 (0.9-3.2) K/mm3 [place] # (Auto) 0.6 (0.1-0.6) K/mm3 Eos # (Auto) 0.2 (0-0.3) K/mm3 Baso # (Auto) 0.1 (0.0-0.1) K/mm3 Comprehensive Metabolic Panel 03/30/25 Range/Units 11:08 Sodium 135 L (137-145) mmol/L Potassium 3.1 L (3.4-5.0) mmol/L Chloride 98 (98-107) mmol/L Carbon Dioxide 25 (22-30) mmol/L BUN 21 H (9-20) mg/dL Creatinine 1.40 H (0.7-1.3) mg/dL Glucose 292 H (65-110) mg/dL Calcium 9.1 (8.4-10.2) mg/dL AST 42 (17-59) U/L ALT 54 H (6-50) U/L Alkaline Phosphatase 101 (38-126) U/L Total Protein 8.3 H (6.3-8.2) g/dL Albumin 4.3 (3.5-5.1) g/dL Intake and Output 03/29/25 03/30/25 03/30/25 23:59 07:59 15:59 Intake Total 5.4 Balance 5.4 Intake: IV 5.4 Nitroglycerin IV Soln (*Bkc) 50 5.4 mg In Dextrose 5 % in Water Bd Ff 240 ml @ 5 MCG/MIN 1.5 mls/ hr IV CONT .Q24H [facility] Rx#: [id number] Patient Weight 03/30/25 23:59 Weight 98.9 kg
[2025-03-30 13:36] LABS: Add Urine Microscopic? YES; Appearance Urine Clear (Clear); Glucose Urine UA 3+ mg/dL (Negative); Leukocyte Esterase Ur Negative LEU/UL (Negative); Nitrate Urine Negative (Negative); Non Pathogenic Casts 0-2; Specific Grav Ur 1.013 (1.001-1.035)
[2025-03-30 13:40] LABS: MRSA (PCR) NOT DETECTED (NOT DETECTE)
[2025-03-30 13:44] LABS: Hemoglobin A1C 8.9 % (<5.7)
--- NOTE | 2025-03-30 14:03 | PM.IMHP ---
H&P: HPI History of Present Illness Date/Time: 03/30/25 21:00 Chief Complaint: Left Arm Pain Narrative: 49 y/o M with PMH of myocardial infarction (2018) and HTN presents here with left arm pain. The patient presents here on 03/30 for further evaluation of left arm pain. He reports onset of LUE pain upon awakening this morning. He describes the pain as achy, nonradiating, constant, no aggravating or alleviating factors. LUE pain is accompanied by nausea and vomiting. He denies dizziness, palpitations, GERD-like symptoms, worsening fatigue, shortness of breath, or chest pain. He reports he has a PMH significant for an OR in 2018 that presented similarly, he was treated at [facility]. At that time he had one stent placed. He took 162 of ASA prior to arrival which had no effect, pain worsened. He arrived to the ED with a BP of 214/137. He reports a history of hypertension, however has not been compliant with his antihypertensive for the past 2 years. Since arrival to the ICU and reduction in his BP, the pain in his arm has decreased. He continues to deny chest pain, shortness of breath, N/V, or dizziness. He is reporting a headache - diffuse, no photo/phonophobia. Initial VS at presentation: 98.3? F, HR 89, RR 20, 214/137, and 96% on RA. ED workup showed: No leukocytosis, no anemia, normal coags, sodium 135, potassium 3.1, creatinine 1.4 and GFR 54, glucose 292, A1c 8.9%, and initial troponin 0.079. UA showed 2+ protein/3+ glucose. CXR showed mild pulmonary edema the mid to lower lungs. Head CT showed no acute intracranial process, mild scattered white matter hypoattenuation. Chest/abdomen/pelvis CTA Review of Systems Review of Systems: All systems reviewed & are unremarkable except as noted in HPI and below [facility] Past Medical History Medical History (Updated 03/30/25 @ 22:16 by Luciana Ledbetter APRN) Hypertension Old anteroseptal myocardial infarction CAD (coronary artery disease) Surgical History Surgical History H/O heart artery stent Family History Family History (Updated 10/02/25 @ 15:21 by Chayo Joyce RN) Father Cerebrovascular accident Mother Bladder cancer Social History Social History Social History: And patient denies smoking marijuana use or drug use. He drinks alcohol very occasionally once in 2 weeks. 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 Smoking status: Never smoker Second hand tobacco smoke exposure: Yes Alcohol intake: never Substance use type: does not use Lack of Transportation: No Lack of Food: Never True Current Housing: I Have Housing Concerned About Future Housing: No Difficulty Paying Gas/Electric Bills: No Difficulty Paying for Meds: No Currently Unemployed: No Education: High School Diploma/GED Difficulty w/ Childcare or Family Care: No Spiritual care concerns: No Meds Home Medications and Allergies Home Medications ?Medication ?Instructions ?Recorded ?Confirmed ?Type aspirin 81 mg tablet 162 mg PO DAILY 03/30/25 03/30/25 History Allergies Allergy/AdvReac Type Severity Reaction Status Date / Time No Known Allergies Allergy Mild Verified 03/30/25 10:48 Vital Signs Vital Signs - 24 hr 03/30/25 10:50 03/30/25 11:09 03/30/25 11:10 Temperature 98.3 F Pulse Rate 89 96 91 Respiratory Rate 20 21 H Blood Pressure 214/137 H 206/148 H Pulse Oximetry 96 97 96 Oxygen Delivery Room Air Oxygen Flow Rate 03/30/25 11:12 03/30/25 11:15 03/30/25 11:16 Temperature Pulse Rate 91 85 85 Respiratory Rate 17 14 21 H Blood Pressure 206/148 H 203/141 H Pulse Oximetry 95 96 97 Oxygen Delivery Oxygen Flow Rate 03/30/25 11:30 03/30/25 11:37 03/30/25 12:04 Temperature Pulse Rate 90 82 75 Respiratory Rate 17 18 14 Blood Pressure 173/118 H 147/101 H Pulse Oximetry 92 93 95 Oxygen Delivery Oxygen Flow Rate 03/30/25 12:12 03/30/25 12:18 03/30/25 12:18 Temperature Pulse Rate 74 70 Respiratory Rate 12 Blood Pressure 156/113 H 158/108 H Pulse Oximetry 88 L 96 Oxygen Delivery Room Air Oxygen Flow Rate 03/30/25 12:18 03/30/25 12:28 03/30/25 12:42 Temperature Pulse Rate 80 81 Respiratory Rate Blood Pressure 160/113 H 170/123 H Pulse Oximetry 96 Oxygen Delivery Nasal Cannula Oxygen Flow Rate 2 03/30/25 12:44 03/30/25 13:06 03/30/25 13:31 Temperature Pulse Rate 78 80 81 Respiratory Rate 12 Blood Pressure 170/123 H 167/117 H 166/116 H Pulse Oximetry 96 Oxygen Delivery Oxygen Flow Rate 03/30/25 13:36 Temperature Pulse Rate 84 Respiratory Rate 12 Blood Pressure 165/106 H Pulse Oximetry 97 Oxygen Delivery Oxygen Flow Rate Exam Const: General: comfortable and no acute distress Other: , male, nontoxic appearance HENMT: Face/Nose/Sinus: Normal nares present Mouth: Yes moist mucous membranes Eyes: General: appearance normal, both eyes and all related structures Sclera: sclerae normal Pupils: Equal, round and reactive pupils present EOM: EOMs intact bilaterally Resp: Effort & Inspection: normal respiratory effort Auscultation: clear to auscultation bilaterally Cardio: Rate: regular rate Rhythm: regular rhythm Other: S1-S2 present without murmur, rub, ectopy GI: Other: Abdomen soft, nondistended, nontender. Normoactive bowel sounds in all quadrants. Skin: General skin exam: normal color and no rashes or lesions noted Wounds: no wounds Neuro: Speech: normal speech Motor exam (neuro): 5/5 motor strength present throughout Sensory Exam: normal sensation Other: A&O x4 Extrem: General: normal to inspection Psych: Mental Status: mental status grossly normal Affect: normal affect Other: good insight and judgment, pleasant H&P: Results Labs Labs: Short CBC 03/30/25 Range/Units 11:08 WBC 8.9 (4.5-10.0) K/mm3 Hgb 14.9 (14.0-18.0) g/dL Hct 42.6 (42.0-52.0) % Plt Count 204 (150-375) k/mm3 BMP 03/30/25 11:08 Sodium 135 L Potassium 3.1 L Chloride 98 Carbon Dioxide 25 BUN 21 H Creatinine 1.40 H Glucose 292 H Calcium 9.1 Cardiac Enzymes 03/30/25 Range/Units 11:08 Total Creatine Kinase 202 H (55-170) U/L Troponin I 0.079 H* (0.000-0.034) ng/mL Liver Function 03/30/25 Range/Units 11:08 Total Bilirubin 0.8 (0.2-1.3) mg/dL AST 42 (17-59) U/L ALT 54 H (6-50) U/L Alkaline Phosphatase 101 (38-126) U/L Albumin 4.3 (3.5-5.1) g/dL Urine 03/30/25 Range/Units 13:20 Urine Color Yellow (Yellow) Urine Appearance Clear (Clear) Urine pH 7.5 (5.0-9.0) Ur Specific Ker[place] 1.013 (1.001-1.035) Urine Protein 2+ H (Negative) mg/dL Urine Glucose (UA) 3+ H (Negative) mg/dL Assessment and Plan Assessment and plan (1) NSTEMI (non-ST elevated myocardial infarction): Code(s): I21.4 - Non-ST elevation (NSTEMI) myocardial infarction Status: Acute Assessment and Plan: Patient has hx of CAD and OR in 2018. Per cardiology, subsequent coronary angiography revealed total occlusion of the left anterior descending artery for which a drug-eluting stent was placed. He has since been noncompliant with follow-up with his cardiac care. - CTA pending to r/o dissection prior to anti-platelet therapy and heparin infusion - EKG reviewed, showed nonspecific ST changes, no acute STEMI. cardiology feels this may represent dyskinesis secondary to his previous OR. - troponin: 0.079 -> 1.26 -> 3.49 - chest pain secondary to ACS vs hypertensive emergency, patient will need LHC. NPO midnight. - cardiology consulted, recommended -> metoprolol 5 mg IVP -> nitro gtt, start patient on metoprolol 50 mg b.i.d., avoid Alfredo inhibitors due to elevated creatinine, start Lovenox 1 mg/kg b.i.d., echo, lipid profile, amlodipine 5 mg daily, IV hydralazine p.r.n., daily aspirin - admitted to the ICU for close monitoring, emergency medicine physician consulted (2) Hypertensive emergency: Code(s): I16.1 - Hypertensive emergency Status: Acute Assessment and Plan: Initial blood pressure 214/137. History of hypertension and noncompliance with antihypertensive for the past 2 years. Cardiology has been consulted, see above for recommendations. - started on metoprolol 50 mg b.i.d. - started on amlodipine 5 mg daily - IV hydralazine p.r.n. - metoprolol 5 mg IVP -> started on nitroglycerin gtt on 03/30 - admitted to the ICU for close hemodynamic monitoring (3) CAD (coronary artery disease): Qualifiers: Associated angina: with unstable angina Coronary Disease-Associated Artery/Lesion type: [place] artery [place] vs. transplanted heart: [place] heart Qualified Code(s): I25.110 - Atherosclerotic heart disease of [place] coronary artery with unstable angina pectoris Code(s): I25.10 - Atherosclerotic heart disease of [place] coronary artery without angina pectoris Status: Acute Assessment and Plan: History of CAD and myocardial infarction. Has been noncompliant with follow-up for his cardiac care. Workup today concerning for NSTEMI and hypertensive emergency, see plan above. - check lipid panel - started on metoprolol, amlodipine, aspirin (4) Hyperglycemia: Code(s): R73.9 - Hyperglycemia, unspecified Status: Acute Assessment and Plan: Initial glucose 292, no previous history of diabetes. A1c 8.9% on 03/30. - hypoglycemia protocol - POC blood glucose ACHS - correct regimen ordered - moderate dose TIDWM and HS - nursing educator and admissions director consulted - once stabilized will need to be started on antidiabetic medications, sliding scale in interim (5) Elevated serum creatinine: Code(s): R79.89 - Other specified abnormal findings of blood chemistry Status: Acute Assessment and Plan: No previous history of CKD. Creatinine 1.4, BUN 21, GFR 54 upon admission on 03/30. - check CK, urine electrolytes, UA, renal ultrasound - IV fluids - if no improvement in renal function with IV fluids, consider Nephrology consultation - trend renal function and I&Os - trend electrolytes, correct as needed Plan Diet: Diabetic, NPO midnight GI Prophylaxis: n/a DVT Prophylaxis: Lovenox 1 mg/kg bid IV fluids: 125 mL/hr x2L Lines/Tubes: peripheral IV Code Status: full code Quality VTE Prophylaxis VTE prophylaxis: pharmacologic ordered Critical Care Time: I personally spent 35 minutes of direct patient care including (but not limited to) the physical examination, decision-making, bedside evaluation, review of medical records, review of labs and imaging, discussion with nursing staff and other providers for collaborative, critical care management of this patient. Hospitalist [facility] Advance Care Plan I have confirmed that the patient's Advanced Care Plan is present, code status is documented, or surrogate decision maker is listed in patient medical record.: Yes Medication Reconciliation I have utilized all available resources to obtain, update and review the patients current medications (includes all prescriptions, OTC, herbals, cannabis, and nutritional supplements).: Yes
[2025-03-30 14:07] LABS: Thyroid Stimulating Hormone Reflex 2.880 uIU/mL (0.465-4.68)
[2025-03-30] MEDS: ENOXAPARIN 100 MG/ML SYRINGE 99 MG SUB-Q (14:26)
[2025-03-30] MEDS: LACTATED RINGERS 1,000 ML 125 ML IV CONT ×2 (14:27→21:30)
--- NOTE | 2025-03-30 15:00 | ADMGEN ---
This patient, Jayden Ordaz, was admitted to Intensive Care Unit-2 at 1443. Patient/family oriented to hospital policies and general routines including ID bracelet, bed and alarms, visiting hours, pain management, procedures, bathroom and other care routines, personal items, smoking policy, room service/diet, and visiting hours. Information on how to activate the Rapid Response Team has been discussed. Patient/Family are encouraged to report perceived risks to care and to ask questions if they do not understand what they are told or what they should do.
--- NOTE | 2025-03-30 15:02 | ECG_ITS ---
Test Date: 2025-03-30 15:07:00 Measurements Intervals [place] Rate: 87 P: 33 [place]: 134 QRS: -1 QRSD: 93 T: 15 QT: 368 QTc: 443 Interpretive Statements SINUS RHYTHM LEFT ATRIAL ENLARGEMENT CANNOT R/O SEPTAL INFARCT, AGE INDETERMINATE ST ELEVATION IN ANTERIOR LEADS- CONSIDER PERICARDITIS, ACUTE INJURY OR EARLY REPOLARIZATION ABNORMALITY ABNORMAL ECG Compared to ECG 03/30/2025 11:31:27 NO SIGNIFICANT CHANGE Electronically Signed On 03-30-2025 15:13:58 CDT by Bradley Horne D.O.
[2025-03-30] MEDS: POTASSIUM CHLORIDE 20 MEQ ER TABLET 40 MEQ PO ×2 (15:36→20:17)
[2025-03-30 15:42] LABS: Troponin I 1.260 ng/mL (0.000-0.034)
[2025-03-30] MEDS: METOPROLOL TARTRATE 50 MG TAB PO (16:13)
[2025-03-30] MEDS: INSULIN ASPART (*BKC) 100 UNITS/ML SUB-Q ×2 (17:32→20:20)
[2025-03-30 19:07] LABS: Cholesterol 159 mg/dL (0-200); HDL Direct 29 mg/dL; Triglycerides 292 mg/dL (<150)
[2025-03-30 19:21] LABS: Troponin I 3.490 ng/mL (0.000-0.034)
[2025-03-30] MEDS: ACETAMINOPHEN 500 MG TABLET 1000 MG PO (21:25)
[2025-03-31] VITALS (51 sets, daily range): BP systolic 120–172; BP diastolic 78–130; PULSE 82–102; RESP 11–26; TEMP 36.6–37; O2SAT 86–100; BMI 33.5
[2025-03-31 03:52] LABS: Hematocrit 42.6 % (42.0-52.0); Hemoglobin 14.2 g/dL (14.0-18.0); Immature Granulocyte Percent A 0.3 % (0-0.5); Lymphocytes Absolute Auto 2.18 K/mm3 (0.9-3.2); Mean Corpuscular HGB Conc 33.3 g/dl (32-36); Mean Corpuscular Hemoglobin 28.9 pg (26-34); Mean Corpuscular Volume 86.6 fl (80-100); Nucleated Red Blood Cells Absolute Auto 0.000 K/mm3 (0.0-0.012); Nucleated Red Blood Cells Perc 0.0 % (0.0-0.2); Platelet Count Result 214 k/mm3 (150-375); Red Blood Count 4.92 M/mm3 (4.6-6.20); White Blood Count 13.5 K/mm3 (4.5-10.0)
[2025-03-31 04:04] LABS: Alanine Aminotransferase 56 U/L (6-50); Albumin Level 3.8 g/dL (3.5-5.1); Alkaline Phosphatase 83 U/L (38-126); Anion Gap 7 mmol/L (4-12); Aspartate Amino Transferase 118 U/L (17-59); Bilirubin,Total 0.8 mg/dL (0.2-1.3); Blood Urea Nitrogen 20 mg/dL (9-20); Calcium 9.2 mg/dL (8.4-10.2); Carbon Dioxide 26 mmol/L (22-30); Chloride 103 mmol/L (98-107); Estimated CRCL calculation 76 ml/min; Estimated Glomerular Filt Rate > 60; Glucose 256 mg/dL (65-110); Magnesium 2.0 mg/dL (1.6-2.3); Potassium 4.1 mmol/L (3.4-5.0); Sodium 136 mmol/L (137-145); Total Protein 7.1 g/dL (6.3-8.2)
--- NOTE | 2025-03-31 08:40 | WPDMODSED ---
Moderate Sedation Note-Pt Data Patient Data Diagnosis: NSTEMI Present Complaint: Chest pain Procedure to be performed/Plan: Coronary angiogram Allergies Allergy/AdvReac Type Severity Reaction Status Date / Time No Known Allergies Allergy Mild Verified 03/30/25 10:48 Home Medications ?Medication ?Instructions ?Recorded ?Confirmed ?Type aspirin 81 mg tablet 162 mg PO DAILY 03/30/25 03/30/25 History Current Medications: Active Medications Acetaminophen (Acetaminophen 500 Mg Tablet) 1,000 mg PO Q6H PRN PRN Reason: Mild Pain (1-3) or Fever Last Admin: 03/30/25 21:25 Dose: 1,000 mg Aspirin (Aspirin 81 Mg Enteric Tablet) 81 mg PO QAM ALVERTO Atorvastatin Calcium (Atorvastatin 40 Mg Tablet) 80 mg PO DAILY ALVERTO Dextrose (Dextrose 50% 25 Gm/50 Ml Syringe) 12.5 gm IV PUSH PRN PRN; Protocol PRN Reason: Hypoglycemia Enoxaparin Sodium (Enoxaparin 100 Mg/Ml Syringe) 99 mg SUB-Q Q12H ALVERTO Last Admin: 03/31/25 08:20 Dose: Not Given Glucagon (Glucagon For Inj 1 Mg Vial) 1 mg IM PRN PRN; Protocol PRN Reason: Hypoglycemia Glucose (Glucose Oral Gel 15 Gm Of Glucse In 37.5 Gm Tube) 15 gm PO PRN PRN; Protocol PRN Reason: Hypoglycemia Hydralazine HCl (Hydralazine Hcl 20 Mg/Ml Vial) 10 mg IV PUSH Q4H PRN PRN Reason: Blood Pressure - High Last Admin: 03/30/25 21:25 Dose: 10 mg Nitroglycerin 50 mg/ Dextrose 250 mls @ 1.5 mls/hr IV CONT .Q24H ALVERTO; Protocol Last Titration: 03/31/25 06:15 Dose: 45 mcg/min, 13.5 mls/hr Dextrose (Dextrose 5% 1,000 Ml) 1,000 mls @ 100 mls/hr IVPB PRN PRN; Protocol PRN Reason: Hypoglycemia Insulin Aspart (Insulin Aspart (*Bkc) 100 Units/Ml) 3 - 6 units SUB-Q TIDWM ALVERTO; Protocol Last Admin: 03/31/25 08:16 Dose: Not Given Insulin Aspart (Insulin Aspart (*Bkc) 100 Units/Ml) 1 - 3 units SUB-Q HS ALVERTO; Protocol Last Admin: 03/30/25 20:20 Dose: 2 units Insulin Glargine (Insulin Glargine (*Bkc) 100 Units/Ml) 15 units SUB-Q QAM ALVERTO Labetalol HCl (Labetalol Hcl Inj 100 Mg/20 Ml Vial) 20 mg IV PUSH Q4H PRN PRN Reason: SBP > 160 and HR> 60 -1st choice Losartan Potassium (Losartan Potassium 25 Mg Tablet) 25 mg PO DAILY [facility] Metoprolol Tartrate (Metoprolol Tartrate 50 Mg Tab) 50 mg PO Q12HR [facility] Last Admin: 03/30/25 16:13 Dose: 50 mg Morphine Sulfate (Morphine Sulfate (*Crx) 4 Mg/Ml Inj) 4 mg IV PUSH Q2H PRN PRN Reason: Pain Rated 7-10 Perflutren Lipid Microsphere (Perflutren Lipid Microspheres 1.5 Ml Vial Diluted To 10 Ml Total Volume) 0 ml IV PUSH ONCE PRN; Protocol PRN Reason: adequate visualization Stop: 04/02/25 12:12 Perflutren Lipid Microsphere (Perflutren Lipid Microspheres 1.5 Ml Vial Diluted To 10 Ml Total Volume) 0 ml IV PUSH ONCE PRN; Protocol PRN Reason: adequate visualization Stop: 04/02/25 13:03 Perflutren Lipid Microsphere (Perflutren Lipid Microspheres 1.5 Ml Vial Diluted To 10 Ml Total Volume) 0 ml IV PUSH ONCE PRN; Protocol PRN Reason: adequate visualization Stop: 04/02/25 13:57 Sedation/Anesthesia: No previous sedation/anesthesia problems (including family history). [facility] Past Medical History Medical History Hypertension Old anteroseptal myocardial infarction CAD (coronary artery disease) Surgical History Surgical History H/O heart artery stent Family History Family History Father Cerebrovascular accident Mother Bladder cancer Social History Social History Social History: And patient denies smoking marijuana use or drug use. He drinks alcohol very occasionally once in 2 weeks. 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 Smoking status: Never smoker Second hand tobacco smoke exposure: Yes Alcohol intake: never Substance use type: does not use Lack of Transportation: No Lack of Food: Never True Current Housing: I Have Housing Concerned About Future Housing: No Difficulty Paying Gas/Electric Bills: No Difficulty Paying for Meds: No Currently Unemployed: No Education: High School Diploma/GED Difficulty w/ Childcare or Family Care: No Spiritual care concerns: No Mod Sed Physical Exam Physical Exam Pre Procedural Exam: Normal: Appearance, Eyes, Ears, Nose, Neck, Throat, Airway, Lungs, Heart Size, Heart Rate, Heart Rhythm, Neuro Exam, Abdomen, Liver, Kidneys, Spleen, Breasts, Genitalia, Extremities and Skin Hours since solid foods: 8 Hours since liquid intake: 8 Mallampati Classification: class 1 Internal Medicine - PN: Obj Da Vital Signs Vital Signs: Vital Signs - 24 hr 03/30/25 10:50 03/30/25 11:09 03/30/25 11:10 Temperature 36.8 C Pulse Rate 89 96 91 Respiratory Rate 20 21 H Blood Pressure 214/137 H 206/148 H Pulse Oximetry 96 97 96 Oxygen Delivery Room Air Oxygen Flow Rate 03/30/25 11:12 03/30/25 11:15 03/30/25 11:16 Temperature Pulse Rate 91 85 85 Respiratory Rate 17 14 21 H Blood Pressure 206/148 H 203/141 H Pulse Oximetry 95 96 97 Oxygen Delivery Oxygen Flow Rate 03/30/25 11:30 03/30/25 11:37 03/30/25 11:37 Temperature Pulse Rate 90 82 81 Respiratory Rate 17 18 17 Blood Pressure 173/118 H 173/118 H Pulse Oximetry 92 93 92 Oxygen Delivery Oxygen Flow Rate 03/30/25 11:41 03/30/25 11:45 03/30/25 12:01 Temperature Pulse Rate 81 75 68 Respiratory Rate 16 16 16 Blood Pressure 178/119 H 147/101 H Pulse Oximetry 94 95 91 Oxygen Delivery Oxygen Flow Rate 03/30/25 12:04 03/30/25 12:12 03/30/25 12:15 Temperature Pulse Rate 75 74 75 Respiratory Rate 14 12 Blood Pressure 147/101 H 156/113 H Pulse Oximetry 95 92 Oxygen Delivery Oxygen Flow Rate 03/30/25 12:16 03/30/25 12:18 03/30/25 12:18 Temperature Pulse Rate 82 70 Respiratory Rate 19 12 Blood Pressure 158/108 H 158/108 H Pulse Oximetry 94 88 L 96 Oxygen Delivery Room Air Oxygen Flow Rate 03/30/25 12:18 03/30/25 12:21 03/30/25 12:28 Temperature Pulse Rate 76 80 Respiratory Rate 16 Blood Pressure 160/113 H 160/113 H Pulse Oximetry 96 94 Oxygen Delivery Nasal Cannula Oxygen Flow Rate 2 03/30/25 12:31 03/30/25 12:32 03/30/25 12:42 Temperature Pulse Rate 82 80 81 Respiratory Rate 15 18 Blood Pressure 175/126 H 170/123 H Pulse Oximetry 94 99 Oxygen Delivery Oxygen Flow Rate 03/30/25 12:44 03/30/25 12:44 03/30/25 12:45 Temperature Pulse Rate 78 78 76 Respiratory Rate 12 12 12 Blood Pressure 170/123 H 170/123 H Pulse Oximetry 96 97 96 Oxygen Delivery Oxygen Flow Rate 03/30/25 13:00 03/30/25 13:01 03/30/25 13:06 Temperature Pulse Rate 79 72 80 Respiratory Rate 15 12 Blood Pressure 167/117 H 167/117 H Pulse Oximetry 95 96 Oxygen Delivery Oxygen Flow Rate 03/30/25 13:11 03/30/25 13:15 03/30/25 13:21 Temperature Pulse Rate 80 84 89 Respiratory Rate 12 12 20 Blood Pressure 167/119 H 186/130 H Pulse Oximetry 97 97 97 Oxygen Delivery Oxygen Flow Rate 03/30/25 13:30 03/30/25 13:31 03/30/25 13:31 Temperature Pulse Rate 83 81 80 Respiratory Rate 15 12 Blood Pressure 166/116 H 166/116 H Pulse Oximetry 96 96 Oxygen Delivery Oxygen Flow Rate 03/30/25 13:32 03/30/25 13:36 03/30/25 14:15 Temperature Pulse Rate 81 84 93 Respiratory Rate 13 12 18 Blood Pressure 165/106 H 165/106 H Pulse Oximetry 98 97 96 Oxygen Delivery Oxygen Flow Rate 03/30/25 14:31 03/30/25 14:45 03/30/25 16:00 Temperature 36.6 C Pulse Rate 88 93 84 Respiratory Rate 16 18 Blood Pressure 184/130 H 185/132 H 183/120 H Pulse Oximetry 95 96 Oxygen Delivery Oxygen Flow Rate 03/30/25 16:00 03/30/25 16:00 03/30/25 16:13 Temperature Pulse Rate 90 90 90 Respiratory Rate Blood Pressure 179/127 H Pulse Oximetry Oxygen Delivery Oxygen Flow Rate 03/30/25 16:32 03/30/25 16:36 03/30/25 17:09 Temperature Pulse Rate 104 H 97 80 Respiratory Rate Blood Pressure 194/140 H 176/123 H Pulse Oximetry Oxygen Delivery Oxygen Flow Rate 03/30/25 18:00 03/30/25 18:00 03/30/25 18:00 Temperature 38.5 C H Pulse Rate 87 90 74 Respiratory Rate 20 Blood Pressure 158/113 H 101/64 Pulse Oximetry 95 Oxygen Delivery Oxygen Flow Rate 03/30/25 18:25 03/30/25 18:35 03/30/25 18:47 Temperature Pulse Rate 88 89 84 Respiratory Rate Blood Pressure 130/104 H 158/113 H 144/100 H Pulse Oximetry Oxygen Delivery Oxygen Flow Rate 03/30/25 20:00 03/30/25 20:00 03/30/25 20:00 Temperature Pulse Rate 83 97 Respiratory Rate Blood Pressure 162/97 H Pulse Oximetry 95 Oxygen Delivery Nasal Cannula Oxygen Flow Rate 2 03/30/25 20:00 03/30/25 20:19 03/30/25 20:45 Temperature 36.6 C Pulse Rate 97 85 91 Respiratory Rate 25 H 20 Blood Pressure 152/102 H 163/125 H Pulse Oximetry 93 93 Oxygen Delivery Nasal Cannula Oxygen Flow Rate 1 03/30/25 21:00 03/30/25 21:52 03/30/25 22:00 Temperature Pulse Rate 89 89 88 Respiratory Rate Blood Pressure 169/107 H 118/81 Pulse Oximetry Oxygen Delivery Oxygen Flow Rate 03/30/25 22:00 03/30/25 22:20 03/30/25 23:58 Temperature Pulse Rate 89 90 9 L Respiratory Rate 16 Blood Pressure 118/81 140/89 Pulse Oximetry 96 92 Oxygen Delivery Nasal Cannula Oxygen Flow Rate 1 03/31/25 00:00 03/31/25 00:00 03/31/25 00:00 Temperature 36.9 C Pulse Rate 85 89 89 Respiratory Rate 20 Blood Pressure 142/99 H 142/99 H Pulse Oximetry 88 L Oxygen Delivery Oxygen Flow Rate 03/31/25 02:00 03/31/25 02:00 03/31/25 02:00 Temperature Pulse Rate 88 92 90 Respiratory Rate 20 Blood Pressure 137/95 H 137/95 H Pulse Oximetry Oxygen Delivery Oxygen Flow Rate 03/31/25 03:21 03/31/25 04:00 03/31/25 04:00 Temperature Pulse Rate 87 89 88 Respiratory Rate Blood Pressure 150/109 H Pulse Oximetry 91 Oxygen Delivery Nasal Cannula Oxygen Flow Rate 2 03/31/25 04:00 03/31/25 06:00 03/31/25 06:00 Temperature Pulse Rate 88 88 88 Respiratory Rate 13 Blood Pressure 154/101 H 127/85 Pulse Oximetry 92 Oxygen Delivery Oxygen Flow Rate 03/31/25 06:00 03/31/25 06:15 Temperature Pulse Rate 86 88 Respiratory Rate Blood Pressure 163/101 H 127/85 Pulse Oximetry Oxygen Delivery Oxygen Flow Rate Intake/Output Intake/Output: Intake & Output 03/28/25 03/29/25 03/30/25 03/31/25 23:59 23:59 23:59 23:59 Intake Total 1228.7 106.9 Output Total 1600 200 Balance -371.3 -93.1 Meds/Results Medications: Active Medications Generic Name Dose Route Start Last Admin Trade Name Freq PRN Reason Stop Dose Admin Acetaminophen 1,000 mg 03/30/25 20:51 03/30/25 21:25 Acetaminophen 500 Mg Tablet PO 1,000 mg Q6H PRN Administration Mild Pain (1-3) or Fever Aspirin 81 mg 03/31/25 09:00 Aspirin 81 Mg Enteric Tablet PO QAM [facility] Atorvastatin Calcium 80 mg 03/31/25 09:00 Atorvastatin 40 Mg Tablet PO DAILY [facility] Dextrose 12.5 gm 03/30/25 12:58 Dextrose 50% 25 Gm/50 Ml Syringe IV PUSH PRN PRN Hypoglycemia Protocol Enoxaparin Sodium 99 mg 03/31/25 09:00 03/31/25 08:20 Enoxaparin 100 Mg/Ml Syringe SUB-Q Not Given Q12H [facility] Glucagon 1 mg 03/30/25 12:58 Glucagon For Inj 1 Mg Vial IM PRN PRN Hypoglycemia Protocol Glucose 15 gm 03/30/25 12:58 Glucose Oral Gel 15 Gm Of Glucse In 37.5 Gm Tube PO PRN PRN Hypoglycemia Protocol Hydralazine HCl 10 mg 03/30/25 16:04 03/30/25 21:25 Hydralazine Hcl 20 Mg/Ml Vial IV PUSH 10 mg Q4H PRN Administration Blood Pressure - High Nitroglycerin 50 mg/ Dextrose 250 mls @ 1.5 mls/hr 03/30/25 11:55 03/31/25 06:15 IV CONT 45 mcg/min .Q24H ALVERTO 13.5 mls/hr Protocol Titration 5 MCG/MIN Dextrose 1,000 mls @ 100 mls/hr 03/30/25 12:58 Dextrose 5% 1,000 Ml IVPB PRN PRN Hypoglycemia Protocol Insulin Aspart 3 - 6 units 03/30/25 17:00 03/31/25 08:16 Insulin Aspart (*Bkc) 100 Units/Ml SUB-Q Not Given TIDWM ALVERTO Protocol Insulin Aspart 1 - 3 units 03/30/25 21:00 03/30/25 20:20 Insulin Aspart (*Bkc) 100 Units/Ml SUB-Q 2 units HS ALVERTO Administration Protocol Insulin Glargine 15 units 03/31/25 09:00 Insulin Glargine (*Bkc) 100 Units/Ml SUB-Q QAM ALVERTO Labetalol HCl 20 mg 03/31/25 08:03 Labetalol Hcl Inj 100 Mg/20 Ml Vial IV PUSH Q4H PRN SBP > 160 and HR> 60 -1st choice Losartan Potassium 25 mg 03/31/25 09:00 Losartan Potassium 25 Mg Tablet PO DAILY ALVERTO Metoprolol Tartrate 50 mg 03/30/25 21:00 03/30/25 16:13 Metoprolol Tartrate 50 Mg Tab PO 50 mg Q12HR ALVERTO Administration Morphine Sulfate 4 mg 03/30/25 13:03 Morphine Sulfate (*Crx) 4 Mg/Ml Inj IV PUSH Q2H PRN Pain Rated 7-10 Perflutren Lipid Microsphere 0 ml 03/30/25 12:11 Perflutren Lipid Microspheres 1.5 Ml Vial Diluted To 10 Ml Total Volume IV PUSH 04/02/25 12:12 ONCE PRN adequate visualization Protocol Perflutren Lipid Microsphere 0 ml 03/30/25 13:03 Perflutren Lipid Microspheres 1.5 Ml Vial Diluted To 10 Ml Total Volume IV PUSH 04/02/25 13:03 ONCE PRN adequate visualization Protocol Perflutren Lipid Microsphere 0 ml 03/30/25 13:57 Perflutren Lipid Microspheres 1.5 Ml Vial Diluted To 10 Ml Total Volume IV PUSH 04/02/25 13:57 ONCE PRN adequate visualization Protocol Radiology Results: ITS Impressions Head CT 03/30/25 13:55 IMPRESSION: 1. No acute intracranial process. 2. Mild scattered white matter hypoattenuation consistent with chronic small vessel ischemic disease. Chest/Abdomen/Pelvis CTA 03/30/25 14:09 IMPRESSION: 1. Normal caliber aorta with no dissection. No acute cardiopulmonary disease or acute intra-abdominal/pelvic process. 2. Large right inguinal hernia containing fat and nonobstructed loop of distal ileum and moderate-sized fat-containing left inguinal hernia. Renal Ultrasound 03/30/25 19:48 IMPRESSION: 1. No acute findings Labs 03/31/25 03:37 03/31/25 03:37 Labs: Laboratory Results - last 24 hr 03/30/25 03/30/25 03/30/25 11:08 12:22 13:20 WBC 8.9 RBC 5.09 Hgb 14.9 Hct 42.6 MCV 83.7 MCH 29.3 MCHC 35.0 RDW 12.6 Plt Count 204 MPV 11.4 H Immature Gran % (Auto) 0.5 Neut % (Auto) 66.7 Lymph % (Auto) 22.9 Traverse % (Auto) 6.8 Eos % (Auto) 2.4 Baso % (Auto) 0.7 Lymph # (Auto) 2.03 Traverse # (Auto) 0.6 Eos # (Auto) 0.2 Baso # (Auto) 0.1 Abs Immat Gran (auto) 0.04 H Absolute Neuts (auto) 5.9 Absolute Nucleated RBC 0.000 Nucleated RBC % 0.0 PT 13.0 INR 1.0 APTT 22.5 Sodium 135 L Potassium 3.1 L Chloride 98 Carbon Dioxide 25 Anion Gap 12 BUN 21 H Creatinine 1.40 H Estim Creat Clear Calc 65 Estimated GFR 54 L Glucose 292 H POC Capillary Glucose Hemoglobin A1c 8.9 H Calcium 9.1 Phosphorus Magnesium Total Bilirubin 0.8 AST 42 ALT 54 H Alkaline Phosphatase 101 Total Creatine Kinase 202 H Troponin I 0.079 H* Total Protein 8.3 H Albumin 4.3 Triglycerides 386 H Cholesterol 188 LDL Cholesterol Direct 64 HDL Direct 33 Lipase 161 TSH (Reflex) 2.880 Urine Color Yellow Urine Appearance Clear Urine pH 7.5 Ur Specific Eva 1.013 Urine Protein 2+ H Urine Glucose (UA) 3+ H Urine Ketones Negative Ur Blood (Man) Negative Urine Nitrate Negative Urine Bilirubin Negative Urine Urobilinogen 0.2 Leukocyte Esterase Rfl Negative Urine RBC 0-2 Urine WBC 0-5 Ur Squamous Epith Cells None seen Urine Bacteria None seen Urine Casts 0-2 Ur Random Sodium 106 Urine Creatinine 38.3 Nasal MRSA (PCR) Not detected 03/30/25 03/30/25 03/30/25 15:00 17:14 18:49 WBC RBC Hgb Hct MCV MCH MCHC RDW Plt Count MPV Immature Gran % (Auto) Neut % (Auto) Lymph % (Auto) Traverse % (Auto) Eos % (Auto) Baso % (Auto) Lymph # (Auto) Traverse # (Auto) Eos # (Auto) Baso # (Auto) Abs Immat Gran (auto) Absolute Neuts (auto) Absolute Nucleated RBC Nucleated RBC % PT INR APTT Sodium Potassium Chloride Carbon Dioxide Anion Gap BUN Creatinine Estim Creat Clear Calc Estimated GFR Glucose POC Capillary Glucose 249 H Hemoglobin A1c Calcium Phosphorus Magnesium Total Bilirubin AST ALT Alkaline Phosphatase Total Creatine Kinase Troponin I 1.260 H* D 3.490 H* D Total Protein Albumin Triglycerides 292 H Cholesterol 159 LDL Cholesterol Direct 60 HDL Direct 29 Lipase TSH (Reflex) Urine Color Urine Appearance Urine pH Ur Specific Eva Urine Protein Urine Glucose (UA) Urine Ketones Ur Blood (Man) Urine Nitrate Urine Bilirubin Urine Urobilinogen Leukocyte Esterase Rfl Urine RBC Urine WBC Ur Squamous Epith Cells Urine Bacteria Urine Casts Ur Random Sodium Urine Creatinine Nasal MRSA (PCR) 03/30/25 03/31/25 03/31/25 20:20 03:37 08:08 WBC 13.5 H RBC 4.92 Hgb 14.2 Hct 42.6 MCV 86.6 MCH 28.9 MCHC 33.3 RDW 13.0 Plt Count 214 MPV 11.7 H Immature Gran % (Auto) 0.3 Neut % (Auto) 73.5 H Lymph % (Auto) 16.1 L Traverse % (Auto) 9.7 H Eos % (Auto) 0.1 Baso % (Auto) 0.3 Lymph # (Auto) 2.18 Traverse # (Auto) 1.3 H Eos # (Auto) 0.0 Baso # (Auto) 0.0 Abs Immat Gran (auto) 0.04 H Absolute Neuts (auto) 9.9 H Absolute Nucleated RBC 0.000 Nucleated RBC % 0.0 PT INR APTT Sodium 136 L Potassium 4.1 Chloride 103 Carbon Dioxide 26 Anion Gap 7 BUN 20 Creatinine 1.18 Estim Creat Clear Calc 76 Estimated GFR > 60 Glucose 256 H POC Capillary Glucose 334 H 249 H Hemoglobin A1c Calcium 9.2 Phosphorus 3.0 Magnesium 2.0 Total Bilirubin 0.8 AST 118 H ALT 56 H Alkaline Phosphatase 83 Total Creatine Kinase Troponin I Total Protein 7.1 Albumin 3.8 Triglycerides Cholesterol LDL Cholesterol Direct HDL Direct Lipase TSH (Reflex) Urine Color Urine Appearance Urine pH Ur Specific Eva Urine Protein Urine Glucose (UA) Urine Ketones Ur Blood (Man) Urine Nitrate Urine Bilirubin Urine Urobilinogen Leukocyte Esterase Rfl Urine RBC Urine WBC Ur Squamous Epith Cells Urine Bacteria Urine Casts Ur Random Sodium Urine Creatinine Nasal MRSA (PCR) ASA Classification/Sedation ASA Classification/Sedation ASA Class: I Emergent: No Risks: Risks, benefits and alternatives explained and patient/family accepted plan for sedation. Patient re-evaluated immediately prior to sedation.
--- NOTE | 2025-03-31 08:41 | WPDHPUPDATE1 ---
History and Physical Update Update Date/Time: 03/31/25 08:41 History and Physical has been reviewed, including an updated exam of the patient. There are NO changes in the patient's condition. Risks, benefits, and alternatives have been discussed and questions answered. Patient agrees to proceed with procedure.
--- NOTE | 2025-03-31 08:43 | P.PCNCC_ITS ---
Cardiac Cath Procedure Note Date of procedure:: 03/31/25 Performing physician:: Johnnie Grace MD Indication:: Elevated troponins, NSTEMI Brief clinical history:: This is 49-year-old patient with history of LAD stent 2018, hypertension. Noncompliant with medications. Presents to the hospital left arm pain and was found to have positive troponins. His blood pressure was severely elevated. He is noncompliant with taking medications per history. Echocardiogram rule motion abnormalities involving lad territory. Ejection fraction 50%. Procedure Procedure performed:: 1-Moderate sedation that started at 9:20 a.m. and ended at 1058 total duration 88 minutes using 3mg of Versed and 75mcg fentanyl. The registered nurse was kriss shahid. 2-Selective left and right coronary angiogram. 3-Left heart catheterization with measurement of LVEDP and measurement of gradient across aortic valve. 4-intravascular ultrasound of lad. 5-deployment of drug-eluting stent 3 x 15 bart distal to the old stent and overlapping fashion to treat chronic total occlusion of LAD. 4-Right common femoral arterial angiogram. Sedation/Medication given:: Moderate sedation. Access site:: Right common femoral artery. Estimated blood loss:: 10cc Procedure note:: After informed consent patient was brought in to analyst microbiology lab with the was draped and prepped in usual manner. Moderate sedation was given and the right groin was infiltrated using 1% lidocaine. Five Latvian sheath was obtained using micropuncture needle and the modified Seldinger technique. Selective left coronary angiogram was done using JL4 catheter with the tip of the catheter placed in the left main coronary artery. Selective right coronary angiogram was done using JR4 catheter with the tip of the catheter placed to the right coronary artery. After that 5 Latvian pigtail catheter was advanced across the aortic valve into the left ventricle with measurement of LVEDP and measurement of gradient across aortic valve. Right common femoral arterial angiogram was done. -after that left main was engaged using 6 Latvian guide catheter CLS 3.5. Coronary wire Administrative Office Clerk 150 was advanced with some difficulty across the total occlusion inside the proximal LAD stent. Balloon angioplasty was done using 3 x 15 balloon. Several inflations under nominal pressure for 20 seconds. After that intravascular ultrasound of the LAD was done and shows that the distal segment measures anything to 3-3.5 mm. The quality of the IVS imaging is poor. The proximal LAD stent measures 3.5 mm appears to be well apposed and expanded. Subsequently we deployed a drug-eluting stent bart 3 x 15 distal to the old stent in an overlapping fashion with deployment done under nominal pressure for 20 seconds. The overlap segment was post dilated using the stent balloon under pressure corresponding to 3.5 mm for 20 seconds. Then after that I took a noncompliant balloon 3 x 15 and post dilated the new stent under the nominal pressure for 20 seconds. I took 3.5 x 15 noncompliant balloon and postdilated the old stent and the proximal portion of the new stent under 20 atmospheres e for 20 seconds . Intravascular ultrasound was done and shows that the new stent somewhat is under expanded and I believed that we should expanded to 3.5 mm and therefore I took a noncompliant balloon 3.5 x 15 and post dilated the new stent with 2 inflations each under nominal pressure for 20 seconds. Final angiogram shows excellent deployment. Findings:: 1- left coronary artery is a large artery that divides into large LAD, large circumflex artery. Left main is normal 2- left anterior descending artery is a large artery and has stent covering its ostium proximal portion and there was total occlusion inside the stent. Left to left collateral seen. There is a large ramus versus diagonal that has proximal 60% stenosis 3- leftcircumflex artery is a large artery and dominant and has diffuse irregularities. 4- right coronary artery is non dominant and free of disease 5- LVEDP was 44 mm Hg and no gradient across aortic valve. 6- opening arterial pressure was 132/96 and closing pressure was 141/106 7- right femoral artery angiogram shows no significant disease in the right common femoral artery. The bifurcation of the right common femoral artery just below the mid femoral head. 8-intravascular ultrasound of the LAD shows proximal LAD stent is will expanded and apposed. The distal segment measures anything between 3-3.5 mm. The quality of the ivus is poor Conclusion:: Successful with cessation of blood flow to chronic/subacute occlusion of the LAD. Culprit was samish coronary disease just distal to the proximal LAD stent. Treatment of the blockage was done using 3 x 15 drug-eluting stent distal and overlapping the proximal LAD stent. Postdilatation of the stent 3.5 mm. -residual 60% stenosis in the large diagonal/ramus intermedius to be assessed clinically as an outpatient. Assessment and Plan Assessment and plan (1) NSTEMI (non-ST elevated myocardial infarction): Code(s): I21.4 - Non-ST elevation (NSTEMI) myocardial infarction Status: Acute Plan Continue aspirin and Brilinta. -aggressive risk factor modification for CAD. -very important to in sure of compliance of the patient taking medications
[2025-03-31] MEDS: LOSARTAN POTASSIUM 25 MG TABLET PO (08:50)
[2025-03-31] MEDS: ASPIRIN 81 MG ENTERIC TABLET PO (08:50)
[2025-03-31] MEDS: ATORVASTATIN 40 MG TABLET 80 MG PO (08:50)
[2025-03-31] MEDS: METOPROLOL TARTRATE 50 MG TAB PO ×2 (08:50→20:46)
--- NOTE | 2025-03-31 08:50 | WPDINTPN ---
Progress Note: A&P Assessment and Plan (1) NSTEMI (non-ST elevated myocardial infarction): Code(s): I21.4 - Non-ST elevation (NSTEMI) myocardial infarction Status: Acute Assessment and Plan: Presented with left arm pain which I although appears noncardiac in nature but patient states that pain is similar to the 1 he had when he had NE in 2017 Noncompliant with medications Abnormal EKG and elevated troponin Evaluated by Cardiology in ER and diagnosed with NSTEMI Serial troponin Chest CTA negative for dissection. Nitroglycerin infusion Statin, dual antiplatelet therapy and Lovenox Echo ordered and pending Patient is going for cardiac catheterization today (2) Hypertensive emergency: Code(s): I16.1 - Hypertensive emergency Status: Acute Assessment and Plan: Presented with high blood pressure and elevated troponin Currently on on nitroglycerin infusion Negative head CT Continue beta-lino and add losartan. P.r.n. labetalol Will wean off nitroglycerin after cardiac catheterization (3) Hyperglycemia: Code(s): R73.9 - Hyperglycemia, unspecified Status: Acute Assessment and Plan: Blood sugar elevated and HbA1c 8.9 Continue SSI Add Lantus Consult dietitian and clinical trial educator (4) Elevated serum creatinine: Code(s): R79.89 - Other specified abnormal findings of blood chemistry Status: Acute Assessment and Plan: Creatinine elevated with baseline unknown. CK not significantly elevated urine electrolytes pending UA negative renal ultrasound unremarkable Improved with IV fluids Monitor urine output electrolytes and creatinine (5) Hypoxia: Code(s): R09.02 - Hypoxemia Status: Acute Assessment and Plan: Increased oxygen requirement overnight. Patient did get IV fluids for JUDY on presentation. Chest x-ray done this morning shows pulmonary edema. Of IV fluid Lasix IV 40 mg x 1 monitor (6) Pulmonary edema: Code(s): J81.1 - Chronic pulmonary edema Status: Acute Assessment and Plan: See above Echo pending Plan DVT prophylaxis -Lovenox Nutrition -diet ordered Code Status - Full Code Total Critical Care Time - 30 minutes Due to a high probability of clinically significant, life threatening deterioration, the patient required my highest level of preparedness to intervene emergently and I personally spent this critical care time directly and personally managing the patient. This critical care time included obtaining a history; examining the patient; pulse oximetry; ordering and review of studies; arranging urgent treatment with development of a management plan; evaluation of patient's response to treatment; frequent reassessment; and discussions with other providers. It was exclusive of separately billable procedures and treating other patients and teaching time. Please see Assessment and Plan section and the rest of the note for further information on patient assessment and treatment Subjective Date/time seen: 03/31/25 Overnight events reviewed. Patient is on low-dose nitroglycerin infusion to keep his blood pressure below 160. He states his arm pain has resolved. He had 1 episode of vomiting. He had some headache. Denies any dyspnea cough chest pain abdominal pain diarrhea fever. All other systems reviewed and negative. Sinus tachycardia on the monitor. Good urine output. Review of Systems Review of Systems: All systems reviewed & are unremarkable except as noted in HPI and below (HPI) Exam Narrative: General: Pt is alert awake and in NAD Lungs/Chest: Trachea central Clear BS B/L, minimal bibasilar crackles. Cardiac: RRR. Normal S1 S2. No murmurs Circulation: Pedal pulses are intact and symmetrical. Abdomen: Normal bowel sounds.. Soft. NT. ND. Extremities: No clubbing, cyanosis or edema. Warm left shoulder has no tenderness redness or swelling. : [place] in place Neurologic: Follows commands. Moves all 4 extremities PERRL, no FND heparin, normal speech and affect, of muscle strength is symmetric in both arms and legs and, no facial asymmetry Skin: No Rash Objective Data Vital Signs Vital Signs: Vital Signs - 24 hr 03/30/25 10:50 03/30/25 11:09 03/30/25 11:10 Temperature 36.8 C Pulse Rate 89 96 91 Respiratory Rate 20 21 H Blood Pressure 214/137 H 206/148 H Pulse Oximetry 96 97 96 Oxygen Delivery Room Air Oxygen Flow Rate 03/30/25 11:12 03/30/25 11:15 03/30/25 11:16 Temperature Pulse Rate 91 85 85 Respiratory Rate 17 14 21 H Blood Pressure 206/148 H 203/141 H Pulse Oximetry 95 96 97 Oxygen Delivery Oxygen Flow Rate 03/30/25 11:30 03/30/25 11:37 03/30/25 11:37 Temperature Pulse Rate 90 82 81 Respiratory Rate 17 18 17 Blood Pressure 173/118 H 173/118 H Pulse Oximetry 92 93 92 Oxygen Delivery Oxygen Flow Rate 03/30/25 11:41 03/30/25 11:45 03/30/25 12:01 Temperature Pulse Rate 81 75 68 Respiratory Rate 16 16 16 Blood Pressure 178/119 H 147/101 H Pulse Oximetry 94 95 91 Oxygen Delivery Oxygen Flow Rate 03/30/25 12:04 03/30/25 12:12 03/30/25 12:15 Temperature Pulse Rate 75 74 75 Respiratory Rate 14 12 Blood Pressure 147/101 H 156/113 H Pulse Oximetry 95 92 Oxygen Delivery Oxygen Flow Rate 03/30/25 12:16 03/30/25 12:18 03/30/25 12:18 Temperature Pulse Rate 82 70 Respiratory Rate 19 12 Blood Pressure 158/108 H 158/108 H Pulse Oximetry 94 88 L 96 Oxygen Delivery Room Air Oxygen Flow Rate 03/30/25 12:18 03/30/25 12:21 03/30/25 12:28 Temperature Pulse Rate 76 80 Respiratory Rate 16 Blood Pressure 160/113 H 160/113 H Pulse Oximetry 96 94 Oxygen Delivery Nasal Cannula Oxygen Flow Rate 2 03/30/25 12:31 03/30/25 12:32 03/30/25 12:42 Temperature Pulse Rate 82 80 81 Respiratory Rate 15 18 Blood Pressure 175/126 H 170/123 H Pulse Oximetry 94 99 Oxygen Delivery Oxygen Flow Rate 03/30/25 12:44 03/30/25 12:44 03/30/25 12:45 Temperature Pulse Rate 78 78 76 Respiratory Rate 12 12 12 Blood Pressure 170/123 H 170/123 H Pulse Oximetry 96 97 96 Oxygen Delivery Oxygen Flow Rate 03/30/25 13:00 03/30/25 13:01 03/30/25 13:06 Temperature Pulse Rate 79 72 80 Respiratory Rate 15 12 Blood Pressure 167/117 H 167/117 H Pulse Oximetry 95 96 Oxygen Delivery Oxygen Flow Rate 03/30/25 13:11 03/30/25 13:15 03/30/25 13:21 Temperature Pulse Rate 80 84 89 Respiratory Rate 12 12 20 Blood Pressure 167/119 H 186/130 H Pulse Oximetry 97 97 97 Oxygen Delivery Oxygen Flow Rate 03/30/25 13:30 03/30/25 13:31 03/30/25 13:31 Temperature Pulse Rate 83 81 80 Respiratory Rate 15 12 Blood Pressure 166/116 H 166/116 H Pulse Oximetry 96 96 Oxygen Delivery Oxygen Flow Rate 03/30/25 13:32 03/30/25 13:36 03/30/25 14:15 Temperature Pulse Rate 81 84 93 Respiratory Rate 13 12 18 Blood Pressure 165/106 H 165/106 H Pulse Oximetry 98 97 96 Oxygen Delivery Oxygen Flow Rate 03/30/25 14:31 03/30/25 14:45 03/30/25 16:00 Temperature 36.6 C Pulse Rate 88 93 84 Respiratory Rate 16 18 Blood Pressure 184/130 H 185/132 H 183/120 H Pulse Oximetry 95 96 Oxygen Delivery Oxygen Flow Rate 03/30/25 16:00 03/30/25 16:00 03/30/25 16:13 Temperature Pulse Rate 90 90 90 Respiratory Rate Blood Pressure 179/127 H Pulse Oximetry Oxygen Delivery Oxygen Flow Rate 03/30/25 16:32 03/30/25 16:36 03/30/25 17:09 Temperature Pulse Rate 104 H 97 80 Respiratory Rate Blood Pressure 194/140 H 176/123 H Pulse Oximetry Oxygen Delivery Oxygen Flow Rate 03/30/25 18:00 03/30/25 18:00 03/30/25 18:00 Temperature 38.5 C H Pulse Rate 87 90 74 Respiratory Rate 20 Blood Pressure 158/113 H 101/64 Pulse Oximetry 95 Oxygen Delivery Oxygen Flow Rate 03/30/25 18:25 03/30/25 18:35 03/30/25 18:47 Temperature Pulse Rate 88 89 84 Respiratory Rate Blood Pressure 130/104 H 158/113 H 144/100 H Pulse Oximetry Oxygen Delivery Oxygen Flow Rate 03/30/25 20:00 03/30/25 20:00 03/30/25 20:00 Temperature Pulse Rate 83 97 Respiratory Rate Blood Pressure 162/97 H Pulse Oximetry 95 Oxygen Delivery Nasal Cannula Oxygen Flow Rate 2 03/30/25 20:00 03/30/25 20:19 03/30/25 20:45 Temperature 36.6 C Pulse Rate 97 85 91 Respiratory Rate 25 H 20 Blood Pressure 152/102 H 163/125 H Pulse Oximetry 93 93 Oxygen Delivery Nasal Cannula Oxygen Flow Rate 1 03/30/25 21:00 03/30/25 21:52 03/30/25 22:00 Temperature Pulse Rate 89 89 88 Respiratory Rate Blood Pressure 169/107 H 118/81 Pulse Oximetry Oxygen Delivery Oxygen Flow Rate 03/30/25 22:00 03/30/25 22:20 03/30/25 23:58 Temperature Pulse Rate 89 90 9 L Respiratory Rate 16 Blood Pressure 118/81 140/89 Pulse Oximetry 96 92 Oxygen Delivery Nasal Cannula Oxygen Flow Rate 1 03/31/25 00:00 03/31/25 00:00 03/31/25 00:00 Temperature 36.9 C Pulse Rate 85 89 89 Respiratory Rate 20 Blood Pressure 142/99 H 142/99 H Pulse Oximetry 88 L Oxygen Delivery Oxygen Flow Rate 03/31/25 02:00 03/31/25 02:00 03/31/25 02:00 Temperature Pulse Rate 88 92 90 Respiratory Rate 20 Blood Pressure 137/95 H 137/95 H Pulse Oximetry Oxygen Delivery Oxygen Flow Rate 03/31/25 03:21 03/31/25 04:00 03/31/25 04:00 Temperature Pulse Rate 87 89 88 Respiratory Rate Blood Pressure 150/109 H Pulse Oximetry 91 Oxygen Delivery Nasal Cannula Oxygen Flow Rate 2 03/31/25 04:00 03/31/25 06:00 03/31/25 06:00 Temperature Pulse Rate 88 88 88 Respiratory Rate 13 Blood Pressure 154/101 H 127/85 Pulse Oximetry 92 Oxygen Delivery Oxygen Flow Rate 03/31/25 06:00 03/31/25 06:15 Temperature Pulse Rate 86 88 Respiratory Rate Blood Pressure 163/101 H 127/85 Pulse Oximetry Oxygen Delivery Oxygen Flow Rate Intake/Output Intake/Output: Intake & Output 03/28/25 03/29/25 03/30/25 03/31/25 23:59 23:59 23:59 23:59 Intake Total 1228.7 106.9 Output Total 1600 200 Balance -371.3 -93.1 Meds/Results Medications: Active Medications Generic Name Dose Route Start Last Admin Trade Name Freq PRN Reason Stop Dose Admin Acetaminophen 1,000 mg 03/30/25 20:51 03/30/25 21:25 Acetaminophen 500 Mg Tablet PO 1,000 mg Q6H PRN Administration Mild Pain (1-3) or Fever Aspirin 81 mg 03/31/25 09:00 Aspirin 81 Mg Enteric Tablet PO QAM [facility] Atorvastatin Calcium 80 mg 03/31/25 09:00 Atorvastatin 40 Mg Tablet PO DAILY ALVERTO Dextrose 12.5 gm 03/30/25 12:58 Dextrose 50% 25 Gm/50 Ml Syringe IV PUSH PRN PRN Hypoglycemia Protocol Enoxaparin Sodium 99 mg 03/31/25 09:00 03/31/25 08:20 Enoxaparin 100 Mg/Ml Syringe SUB-Q Not Given Q12H ALVERTO Glucagon 1 mg 03/30/25 12:58 Glucagon For Inj 1 Mg Vial IM PRN PRN Hypoglycemia Protocol Glucose 15 gm 03/30/25 12:58 Glucose Oral Gel 15 Gm Of Glucse In 37.5 Gm Tube PO PRN PRN Hypoglycemia Protocol Hydralazine HCl 10 mg 03/30/25 16:04 03/30/25 21:25 Hydralazine Hcl 20 Mg/Ml Vial IV PUSH 10 mg Q4H PRN Administration Blood Pressure - High Nitroglycerin 50 mg/ Dextrose 250 mls @ 1.5 mls/hr 03/30/25 11:55 03/31/25 06:15 IV CONT 45 mcg/min .Q24H ALVERTO 13.5 mls/hr Protocol Titration 5 MCG/MIN Dextrose 1,000 mls @ 100 mls/hr 03/30/25 12:58 Dextrose 5% 1,000 Ml IVPB PRN PRN Hypoglycemia Protocol Insulin Aspart 3 - 6 units 03/30/25 17:00 03/31/25 08:16 Insulin Aspart (*Bkc) 100 Units/Ml SUB-Q Not Given TIDWM [facility] Protocol Insulin Aspart 1 - 3 units 03/30/25 21:00 03/30/25 20:20 Insulin Aspart (*Bkc) 100 Units/Ml SUB-Q 2 units HS [facility] Administration Protocol Insulin Glargine 15 units 03/31/25 09:00 Insulin Glargine (*Bkc) 100 Units/Ml SUB-Q QAM [facility] Labetalol HCl 20 mg 03/31/25 08:03 Labetalol Hcl Inj 100 Mg/20 Ml Vial IV PUSH Q4H PRN SBP > 160 and HR> 60 -1st choice Losartan Potassium 25 mg 03/31/25 09:00 Losartan Potassium 25 Mg Tablet PO DAILY [facility] Metoprolol Tartrate 50 mg 03/30/25 21:00 03/30/25 16:13 Metoprolol Tartrate 50 Mg Tab PO 50 mg Q12HR ALVERTO Administration Morphine Sulfate 4 mg 03/30/25 13:03 Morphine Sulfate (*Crx) 4 Mg/Ml Inj IV PUSH Q2H PRN Pain Rated 7-10 Perflutren Lipid Microsphere 0 ml 03/30/25 12:11 Perflutren Lipid Microspheres 1.5 Ml Vial Diluted To 10 Ml Total Volume IV PUSH 04/02/25 12:12 ONCE PRN adequate visualization Protocol Perflutren Lipid Microsphere 0 ml 03/30/25 13:03 Perflutren Lipid Microspheres 1.5 Ml Vial Diluted To 10 Ml Total Volume IV PUSH 04/02/25 13:03 ONCE PRN adequate visualization Protocol Perflutren Lipid Microsphere 0 ml 03/30/25 13:57 Perflutren Lipid Microspheres 1.5 Ml Vial Diluted To 10 Ml Total Volume IV PUSH 04/02/25 13:57 ONCE PRN adequate visualization Protocol Radiology Results: ITS Impressions Head CT 03/30/25 13:55 IMPRESSION: 1. No acute intracranial process. 2. Mild scattered white matter hypoattenuation consistent with chronic small vessel ischemic disease. Chest/Abdomen/Pelvis CTA 03/30/25 14:09 IMPRESSION: 1. Normal caliber aorta with no dissection. No acute cardiopulmonary disease or acute intra-abdominal/pelvic process. 2. Large right inguinal hernia containing fat and nonobstructed loop of distal ileum and moderate-sized fat-containing left inguinal hernia. Renal Ultrasound 03/30/25 19:48 IMPRESSION: 1. No acute findings Chest X-Ray 03/31/25 08:40 IMPRESSION: 1. Interstitial pulmonary edema. Labs Labs: Laboratory Results - last 24 hr 03/30/25 03/30/25 03/30/25 11:08 12:22 13:20 WBC 8.9 RBC 5.09 Hgb 14.9 Hct 42.6 MCV 83.7 MCH 29.3 MCHC 35.0 RDW 12.6 Plt Count 204 MPV 11.4 H Immature Gran % (Auto) 0.5 Neut % (Auto) 66.7 Lymph % (Auto) 22.9 [place] % (Auto) 6.8 Eos % (Auto) 2.4 Baso % (Auto) 0.7 Lymph # (Auto) 2.03 [place] # (Auto) 0.6 Eos # (Auto) 0.2 Baso # (Auto) 0.1 Abs Immat Gran (auto) 0.04 H Absolute Neuts (auto) 5.9 Absolute Nucleated RBC 0.000 Nucleated RBC % 0.0 PT 13.0 INR 1.0 APTT 22.5 Sodium 135 L Potassium 3.1 L Chloride 98 Carbon Dioxide 25 Anion Gap 12 BUN 21 H Creatinine 1.40 H Estim Creat Clear Calc 65 Estimated GFR 54 L Glucose 292 H POC Capillary Glucose Hemoglobin A1c 8.9 H Calcium 9.1 Phosphorus Magnesium Total Bilirubin 0.8 AST 42 ALT 54 H Alkaline Phosphatase 101 Total Creatine Kinase 202 H Troponin I 0.079 H* Total Protein 8.3 H Albumin 4.3 Triglycerides 386 H Cholesterol 188 LDL Cholesterol Direct 64 HDL Direct 33 Lipase 161 TSH (Reflex) 2.880 Urine Color Yellow Urine Appearance Clear Urine pH 7.5 Ur Specific [place] 1.013 Urine Protein 2+ H Urine Glucose (UA) 3+ H Urine Ketones Negative Ur Blood (Man) Negative Urine Nitrate Negative Urine Bilirubin Negative Urine Urobilinogen 0.2 Leukocyte Esterase Rfl Negative Urine RBC 0-2 Urine WBC 0-5 Ur Squamous Epith Cells None seen Urine Bacteria None seen Urine Casts 0-2 Ur Random Sodium 106 Urine Creatinine 38.3 Nasal MRSA (PCR) Not detected 03/30/25 03/30/25 03/30/25 15:00 17:14 18:49 WBC RBC Hgb Hct MCV MCH MCHC RDW Plt Count MPV Immature Gran % (Auto) Neut % (Auto) Lymph % (Auto) [place] % (Auto) Eos % (Auto) Baso % (Auto) Lymph # (Auto) [place] # (Auto) Eos # (Auto) Baso # (Auto) Abs Immat Gran (auto) Absolute Neuts (auto) Absolute Nucleated RBC Nucleated RBC % PT INR APTT Sodium Potassium Chloride Carbon Dioxide Anion Gap BUN Creatinine Estim Creat Clear Calc Estimated GFR Glucose POC Capillary Glucose 249 H Hemoglobin A1c Calcium Phosphorus Magnesium Total Bilirubin AST ALT Alkaline Phosphatase Total Creatine Kinase Troponin I 1.260 H* D 3.490 H* D Total Protein Albumin Triglycerides 292 H Cholesterol 159 LDL Cholesterol Direct 60 HDL Direct 29 Lipase TSH (Reflex) Urine Color Urine Appearance Urine pH Ur Specific [place] Urine Protein Urine Glucose (UA) Urine Ketones Ur Blood (Man) Urine Nitrate Urine Bilirubin Urine Urobilinogen Leukocyte Esterase Rfl Urine RBC Urine WBC Ur Squamous Epith Cells Urine Bacteria Urine Casts Ur Random Sodium Urine Creatinine Nasal MRSA (PCR) 03/30/25 03/31/25 03/31/25 20:20 03:37 08:08 WBC 13.5 H RBC 4.92 Hgb 14.2 Hct 42.6 MCV 86.6 MCH 28.9 MCHC 33.3 RDW 13.0 Plt Count 214 MPV 11.7 H Immature Gran % (Auto) 0.3 Neut % (Auto) 73.5 H Lymph % (Auto) 16.1 L [place] % (Auto) 9.7 H Eos % (Auto) 0.1 Baso % (Auto) 0.3 Lymph # (Auto) 2.18 [place] # (Auto) 1.3 H Eos # (Auto) 0.0 Baso # (Auto) 0.0 Abs Immat Gran (auto) 0.04 H Absolute Neuts (auto) 9.9 H Absolute Nucleated RBC 0.000 Nucleated RBC % 0.0 PT INR APTT Sodium 136 L Potassium 4.1 Chloride 103 Carbon Dioxide 26 Anion Gap 7 BUN 20 Creatinine 1.18 Estim Creat Clear Calc 76 Estimated GFR > 60 Glucose 256 H POC Capillary Glucose 334 H 249 H Hemoglobin A1c Calcium 9.2 Phosphorus 3.0 Magnesium 2.0 Total Bilirubin 0.8 AST 118 H ALT 56 H Alkaline Phosphatase 83 Total Creatine Kinase Troponin I Total Protein 7.1 Albumin 3.8 Triglycerides Cholesterol LDL Cholesterol Direct HDL Direct Lipase TSH (Reflex) Urine Color Urine Appearance Urine pH Ur Specific [place] Urine Protein Urine Glucose (UA) Urine Ketones Ur Blood (Man) Urine Nitrate Urine Bilirubin Urine Urobilinogen Leukocyte Esterase Rfl Urine RBC Urine WBC Ur Squamous Epith Cells Urine Bacteria Urine Casts Ur Random Sodium Urine Creatinine Nasal MRSA (PCR) Quality VTE Prophylaxis VTE prophylaxis: pharmacologic ordered
[2025-03-31] MEDS: FUROSEMIDE INJ 40 MG/4 ML VIAL IV PUSH ×2 (08:55→13:08)
--- NOTE | 2025-03-31 09:40 | ECG_ITS ---
Test Date: 2025-03-31 09:50:00 Measurements Intervals [place] Rate: 83 P: 35 WI: 147 QRS: 2 QRSD: 89 T: 0 QT: 403 QTc: 475 Interpretive Statements SINUS RHYTHM POSSIBLE LEFT ATRIAL ENLARGEMENT ST ELEVATION IN ANTERIOR LEADS- CONSIDER RECENT INJURY ABNORMAL ECG Compared to ECG 03/30/2025 15:07:00 ST ELEVATION WITH T WAVE INVERSIONS NOW Electronically Signed On 03-31-2025 11:55:44 CDT by Bradley Horne D.O.
--- NOTE | 2025-03-31 11:37 | ECG_ITS ---
Test Date: 2025-03-31 16:09:14 Measurements Intervals [place] Rate: 87 P: 34 NM: 136 QRS: 31 QRSD: 102 T: 157 QT: 413 QTc: 499 Interpretive Statements SINUS RHYTHM POSSIBLE LEFT ATRIAL ENLARGEMENT [-0.1mV P WAVE IN V1/V2] ST ELEVATION IN ANTERIOR LEADS- CONSIDER RECENT INJURY ABNORMAL ECG Compared to ECG 03/31/2025 09:50:00 NO SIGNIFICANT CHANGE Electronically Signed On 03-31-2025 16:23:06 CDT by Bradley Horne D.O.
[2025-03-31] MEDS: INSULIN GLARGINE (*BKC) 100 UNITS/ML 15 UNITS SUB-Q (12:43)
--- NOTE | 2025-03-31 13:10 | P.PNCROSS_ITS ---
Event Note Event Note Event Note: Patient had a cardiac catheterization had a stent placement. He did receive so me fluids for renal protection. Now increased oxygen requirement with mild tachypnea and crackles on exam. Will DC IV fluid. Will place patient on CPAP for now. Patient complains of cough but no nausea vomiting. Will give another dose of Lasix. Monitor
--- NOTE | 2025-03-31 13:44 | PCDIET ---
Nutrition note: MD consult for new onset diabetes. Pt had cardiac cath today and is now on Cpap. Not appropriate for education today. Will see patient for education when condition is improved, if able. Thank you for this consult.
[2025-03-31] MEDS: MORPHINE SULFATE (*CRX) 2 MG/ML INJ (14:45)
--- NOTE | 2025-03-31 16:51 | PM.IMPN ---
Progress Note: A&P Assessment and Plan (1) NSTEMI (non-ST elevated myocardial infarction): Code(s): I21.4 - Non-ST elevation (NSTEMI) myocardial infarction Status: Acute (2) Hypoxia: Code(s): R09.02 - Hypoxemia Status: Acute (3) Pulmonary edema: Code(s): J81.1 - Chronic pulmonary edema Status: Acute (4) Hypertensive emergency: Code(s): I16.1 - Hypertensive emergency Status: Acute Plan 03/31/2025 placement of drug-eluting stent distal an overlapping the proximal LAD stent which had chronic to subacute occlusion. Appreciate Cardiology recommendations, continue aspirin and Brilinta. Hypoxia likely due to pulmonary edema. Doing better on CPAP. IV fluids discontinued. Defer to oil and gas lease pumper further management of CPAP. Status post Lasix. Continue Accu-Cheks. Lantus 15 units q.a.m. started on 03/31/2025. Continue sliding scales well. Monitor kidney function and volume status. Initially improved after IV fluids but patient developed pulmonary edema. Now receiving Lasix. Strict I/O. Monitor blood pressure with nitroglycerin GTT as directed by oil and gas lease pumper. Full code. Time Spent With Patient Time with patient: Greater than 35 minutes Subjective Date/time seen: 03/31/25 16:51 Interval history: Developed respiratory distress after cardiac catheterization. Received 500 cc bolus. Currently on CPAP. Review of Systems Review of Systems: All systems reviewed & are unremarkable except as noted in HPI and below (Subjective) Exam Const: General: comfortable and no acute distress HENMT: Mouth: Yes moist mucous membranes Eyes: Pupils: Equal, round and reactive pupils present Neck: Neck: supple Resp: Effort & Inspection: normal respiratory effort Auscultation: crackles Cardio: Rate: regular rate Rhythm: regular rhythm GI: Inspection: non-distended GI Palp: Yes Soft to palpation Extrem: General: no edema Objective Data Vital Signs Vital Signs: Vital Signs - 24 hr 03/30/25 17:09 03/30/25 18:00 03/30/25 18:00 Temperature Pulse Rate 80 87 90 Pulse Rate [Right Pedal (Dorsalis Pedis) Palpation] Respiratory Rate Blood Pressure 176/123 H 158/113 H Pulse Oximetry Oxygen Delivery Oxygen Flow Rate Fraction of Inspired Oxygen 03/30/25 18:00 03/30/25 18:25 03/30/25 18:35 Temperature 101.3 F H Pulse Rate 74 88 89 Pulse Rate [Right Pedal (Dorsalis Pedis) Palpation] Respiratory Rate 20 Blood Pressure 101/64 130/104 H 158/113 H Pulse Oximetry 95 Oxygen Delivery Oxygen Flow Rate Fraction of Inspired Oxygen 03/30/25 18:47 03/30/25 20:00 03/30/25 20:00 Temperature Pulse Rate 84 83 Pulse Rate [Right Pedal (Dorsalis Pedis) Palpation] Respiratory Rate Blood Pressure 144/100 H 162/97 H Pulse Oximetry 95 Oxygen Delivery Nasal Cannula Oxygen Flow Rate 2 Fraction of Inspired Oxygen 03/30/25 20:00 03/30/25 20:00 03/30/25 20:19 Temperature 97.8 F Pulse Rate 97 97 85 Pulse Rate [Right Pedal (Dorsalis Pedis) Palpation] Respiratory Rate 25 H 20 Blood Pressure 152/102 H Pulse Oximetry 93 93 Oxygen Delivery Nasal Cannula Oxygen Flow Rate 1 Fraction of Inspired Oxygen 03/30/25 20:45 03/30/25 21:00 03/30/25 21:52 Temperature Pulse Rate 91 89 89 Pulse Rate [Right Pedal (Dorsalis Pedis) Palpation] Respiratory Rate Blood Pressure 163/125 H 169/107 H 118/81 Pulse Oximetry Oxygen Delivery Oxygen Flow Rate Fraction of Inspired Oxygen 03/30/25 22:00 03/30/25 22:00 03/30/25 22:20 Temperature Pulse Rate 88 89 90 Pulse Rate [Right Pedal (Dorsalis Pedis) Palpation] Respiratory Rate 16 Blood Pressure 118/81 140/89 Pulse Oximetry 96 Oxygen Delivery Oxygen Flow Rate Fraction of Inspired Oxygen 03/30/25 23:58 03/31/25 00:00 03/31/25 00:00 Temperature Pulse Rate 9 L 85 89 Pulse Rate [Right Pedal (Dorsalis Pedis) Palpation] Respiratory Rate Blood Pressure 142/99 H Pulse Oximetry 92 Oxygen Delivery Nasal Cannula Oxygen Flow Rate 1 Fraction of Inspired Oxygen 03/31/25 00:00 03/31/25 02:00 03/31/25 02:00 Temperature 98.4 F Pulse Rate 89 88 92 Pulse Rate [Right Pedal (Dorsalis Pedis) Palpation] Respiratory Rate 20 Blood Pressure 142/99 H 137/95 H Pulse Oximetry 88 L Oxygen Delivery Oxygen Flow Rate Fraction of Inspired Oxygen 03/31/25 02:00 03/31/25 03:21 03/31/25 04:00 Temperature Pulse Rate 90 87 89 Pulse Rate [Right Pedal (Dorsalis Pedis) Palpation] Respiratory Rate 20 Blood Pressure 137/95 H 150/109 H Pulse Oximetry 91 Oxygen Delivery Nasal Cannula Oxygen Flow Rate 2 Fraction of Inspired Oxygen 03/31/25 04:00 03/31/25 04:00 03/31/25 06:00 Temperature Pulse Rate 88 88 88 Pulse Rate [Right Pedal (Dorsalis Pedis) Palpation] Respiratory Rate 13 Blood Pressure 154/101 H Pulse Oximetry 92 Oxygen Delivery Oxygen Flow Rate Fraction of Inspired Oxygen 03/31/25 06:00 03/31/25 06:00 03/31/25 06:15 Temperature Pulse Rate 88 86 88 Pulse Rate [Right Pedal (Dorsalis Pedis) Palpation] Respiratory Rate Blood Pressure 127/85 163/101 H 127/85 Pulse Oximetry Oxygen Delivery Oxygen Flow Rate Fraction of Inspired Oxygen 03/31/25 07:00 03/31/25 08:00 03/31/25 08:00 Temperature Pulse Rate 87 102 H Pulse Rate [Right Pedal (Dorsalis Pedis) Palpation] Respiratory Rate 17 Blood Pressure 131/78 160/100 H Pulse Oximetry 94 98 Oxygen Delivery High Flow Therapy with Na Oxygen Flow Rate 6 Fraction of Inspired Oxygen 03/31/25 08:00 03/31/25 08:45 03/31/25 08:50 Temperature 98.6 F Pulse Rate 102 H 91 98 Pulse Rate [Right Pedal (Dorsalis Pedis) Palpation] Respiratory Rate 16 16 Blood Pressure 160/100 H 148/106 H Pulse Oximetry 98 91 Oxygen Delivery Oxygen Flow Rate Fraction of Inspired Oxygen 03/31/25 11:30 03/31/25 11:30 03/31/25 11:30 Temperature Pulse Rate 85 87 Pulse Rate [Right Pedal (Dorsalis Pedis) Palpation] 84 Respiratory Rate 18 15 Blood Pressure 144/105 H 144/105 H Pulse Oximetry 96 94 Oxygen Delivery High Flow Nasal Cannula Oxygen Flow Rate 10 Fraction of Inspired Oxygen 03/31/25 11:45 03/31/25 11:45 03/31/25 12:00 Temperature Pulse Rate 88 Pulse Rate [Right Pedal (Dorsalis Pedis) Palpation] 83 92 Respiratory Rate 20 Blood Pressure 154/107 H Pulse Oximetry 93 Oxygen Delivery Nasal Cannula Oxygen Flow Rate 2 Fraction of Inspired Oxygen 03/31/25 12:00 03/31/25 12:00 03/31/25 12:00 Temperature 98.2 F Pulse Rate 85 87 Pulse Rate [Right Pedal (Dorsalis Pedis) Palpation] Respiratory Rate 17 20 Blood Pressure 151/125 H 163/121 H Pulse Oximetry 95 92 91 Oxygen Delivery Nasal Cannula High Flow Therapy with Na Oxygen Flow Rate 10 10 Fraction of Inspired Oxygen 03/31/25 12:15 03/31/25 12:15 03/31/25 12:30 Temperature Pulse Rate 93 Pulse Rate [Right Pedal (Dorsalis Pedis) Palpation] 93 96 Respiratory Rate 24 H Blood Pressure 156/111 H Pulse Oximetry 95 Oxygen Delivery Nasal Cannula Oxygen Flow Rate 10 Fraction of Inspired Oxygen 03/31/25 12:30 03/31/25 12:45 03/31/25 12:45 Temperature Pulse Rate 96 96 Pulse Rate [Right Pedal (Dorsalis Pedis) Palpation] 96 Respiratory Rate 23 H 23 H Blood Pressure 157/112 H 164/117 H Pulse Oximetry 93 92 Oxygen Delivery Nasal Cannula Nasal Cannula Oxygen Flow Rate 10 10 Fraction of Inspired Oxygen 03/31/25 12:53 03/31/25 13:00 03/31/25 13:00 Temperature Pulse Rate 100 97 Pulse Rate [Right Pedal (Dorsalis Pedis) Palpation] 97 Respiratory Rate 20 Blood Pressure 152/114 H Pulse Oximetry 92 Oxygen Delivery Nasal Cannula Oxygen Flow Rate 10 Fraction of Inspired Oxygen 03/31/25 13:00 03/31/25 13:15 03/31/25 13:15 Temperature Pulse Rate 101 H 95 Pulse Rate [Right Pedal (Dorsalis Pedis) Palpation] 95 Respiratory Rate 21 H 23 H Blood Pressure 152/114 H 151/107 H Pulse Oximetry 89 L 90 Oxygen Delivery Nasal Cannula Oxygen Flow Rate 10 Fraction of Inspired Oxygen 03/31/25 13:30 03/31/25 13:30 03/31/25 13:45 Temperature Pulse Rate 99 94 Pulse Rate [Right Pedal (Dorsalis Pedis) Palpation] 99 Respiratory Rate 26 H 15 Blood Pressure 159/130 H 172/119 H Pulse Oximetry 88 L 86 L Oxygen Delivery Nasal Cannula Nasal Cannula Oxygen Flow Rate 10 10 Fraction of Inspired Oxygen 03/31/25 13:45 03/31/25 13:55 03/31/25 14:00 Temperature Pulse Rate 90 93 Pulse Rate [Right Pedal (Dorsalis Pedis) Palpation] 94 Respiratory Rate 20 19 Blood Pressure 145/113 H Pulse Oximetry 93 92 Oxygen Delivery CPAP CPAP Oxygen Flow Rate Fraction of Inspired Oxygen 60 03/31/25 14:00 03/31/25 14:00 03/31/25 14:15 Temperature Pulse Rate 92 Pulse Rate [Right Pedal (Dorsalis Pedis) Palpation] 93 93 Respiratory Rate 20 Blood Pressure 145/108 H Pulse Oximetry 92 Oxygen Delivery Oxygen Flow Rate Fraction of Inspired Oxygen 03/31/25 14:15 03/31/25 14:30 03/31/25 14:30 Temperature Pulse Rate 93 93 Pulse Rate [Right Pedal (Dorsalis Pedis) Palpation] 93 Respiratory Rate 16 19 Blood Pressure 147/107 H 149/110 H Pulse Oximetry 93 95 Oxygen Delivery CPAP CPAP Oxygen Flow Rate Fraction of Inspired Oxygen 60 03/31/25 14:32 03/31/25 14:32 03/31/25 14:37 Temperature Pulse Rate 93 91 Pulse Rate [Right Pedal (Dorsalis Pedis) Palpation] 94 Respiratory Rate 25 H 22 H Blood Pressure 149/110 H 160/126 H Pulse Oximetry 95 95 Oxygen Delivery CPAP BiPAP Oxygen Flow Rate Fraction of Inspired Oxygen 03/31/25 14:37 03/31/25 14:40 03/31/25 14:40 Temperature Pulse Rate 92 Pulse Rate [Right Pedal (Dorsalis Pedis) Palpation] 92 92 Respiratory Rate 24 H Blood Pressure 154/114 H Pulse Oximetry 91 Oxygen Delivery BiPAP Oxygen Flow Rate Fraction of Inspired Oxygen 03/31/25 14:45 03/31/25 14:45 03/31/25 14:45 Temperature Pulse Rate 92 92 Pulse Rate [Right Pedal (Dorsalis Pedis) Palpation] Respiratory Rate 23 H Blood Pressure 126/99 H Pulse Oximetry 92 91 Oxygen Delivery CPAP BiPAP Oxygen Flow Rate Fraction of Inspired Oxygen 60 03/31/25 14:45 03/31/25 14:50 03/31/25 14:50 Temperature Pulse Rate 89 Pulse Rate [Right Pedal (Dorsalis Pedis) Palpation] 92 88 Respiratory Rate 17 Blood Pressure 134/100 H Pulse Oximetry 90 Oxygen Delivery BiPAP Oxygen Flow Rate Fraction of Inspired Oxygen 03/31/25 14:55 03/31/25 14:55 03/31/25 15:00 Temperature Pulse Rate 87 89 Pulse Rate [Right Pedal (Dorsalis Pedis) Palpation] 87 Respiratory Rate 19 19 Blood Pressure 122/97 H 129/90 Pulse Oximetry 93 95 Oxygen Delivery BiPAP BiPAP Oxygen Flow Rate Fraction of Inspired Oxygen 03/31/25 15:00 03/31/25 15:00 03/31/25 15:02 Temperature Pulse Rate 88 87 Pulse Rate [Right Pedal (Dorsalis Pedis) Palpation] 89 Respiratory Rate 19 19 Blood Pressure 129/90 122/97 H Pulse Oximetry 93 93 Oxygen Delivery BiPAP Oxygen Flow Rate Fraction of Inspired Oxygen 03/31/25 15:02 03/31/25 15:05 03/31/25 15:05 Temperature Pulse Rate 87 Pulse Rate [Right Pedal (Dorsalis Pedis) Palpation] 87 87 Respiratory Rate 18 Blood Pressure 133/97 H Pulse Oximetry 94 Oxygen Delivery BiPAP Oxygen Flow Rate Fraction of Inspired Oxygen 03/31/25 15:10 03/31/25 15:10 03/31/25 15:15 Temperature Pulse Rate 89 86 Pulse Rate [Right Pedal (Dorsalis Pedis) Palpation] 89 Respiratory Rate 20 17 Blood Pressure 136/101 H 130/99 H Pulse Oximetry 94 94 Oxygen Delivery BiPAP BiPAP Oxygen Flow Rate Fraction of Inspired Oxygen 03/31/25 15:15 03/31/25 15:30 03/31/25 15:30 Temperature Pulse Rate 86 Pulse Rate [Right Pedal (Dorsalis Pedis) Palpation] 86 86 Respiratory Rate 15 Blood Pressure 129/93 H Pulse Oximetry 95 Oxygen Delivery BiPAP Oxygen Flow Rate Fraction of Inspired Oxygen 03/31/25 15:45 03/31/25 15:45 03/31/25 16:00 Temperature Pulse Rate 85 Pulse Rate [Right Pedal (Dorsalis Pedis) Palpation] 85 Respiratory Rate 16 Blood Pressure 130/91 H Pulse Oximetry 98 100 Oxygen Delivery BiPAP CPAP Oxygen Flow Rate Fraction of Inspired Oxygen 60 03/31/25 16:00 03/31/25 16:00 03/31/25 16:02 Temperature Pulse Rate 86 86 Pulse Rate [Right Pedal (Dorsalis Pedis) Palpation] 85 Respiratory Rate 14 17 Blood Pressure 133/96 H 133/96 H Pulse Oximetry 99 98 Oxygen Delivery BiPAP BiPAP Oxygen Flow Rate Fraction of Inspired Oxygen 60 03/31/25 16:02 Temperature Pulse Rate Pulse Rate [Right Pedal (Dorsalis Pedis) Palpation] 86 Respiratory Rate Blood Pressure Pulse Oximetry Oxygen Delivery Oxygen Flow Rate Fraction of Inspired Oxygen Intake/Output Intake/Output: Intake & Output 03/28/25 03/29/25 03/30/25 03/31/25 23:59 23:59 23:59 23:59 Intake Total 1228.7 130.5 Output Total 1600 1600 Balance -371.3 -1469.5 Meds/Results Medications: Active Medications Generic Name Dose Route Start Last Admin Trade Name Freq PRN Reason Stop Dose Admin Acetaminophen 1,000 mg 03/30/25 20:51 03/30/25 21:25 Acetaminophen 500 Mg Tablet PO 1,000 mg Q6H PRN Administration Mild Pain (1-3) or Fever Amlodipine Besylate 5 mg 03/31/25 13:00 03/31/25 13:14 Amlodipine Besylate 5 Mg Tablet PO 5 mg DAILY ALVERTO Administration Aspirin 81 mg 03/31/25 09:00 03/31/25 08:50 Aspirin 81 Mg Enteric Tablet PO 81 mg QAM ALVERTO Administration Atorvastatin Calcium 80 mg 03/31/25 09:00 03/31/25 08:50 Atorvastatin 40 Mg Tablet PO 80 mg DAILY ALVERTO Administration Dextrose 12.5 gm 03/30/25 12:58 Dextrose 50% 25 Gm/50 Ml Syringe IV PUSH PRN PRN Hypoglycemia Protocol Furosemide 40 mg 04/01/25 09:00 Furosemide Inj 40 Mg/4 Ml Vial IV PUSH 04/03/25 09:01 DAILY ALVERTO Furosemide 40 mg 03/31/25 18:11 Furosemide Inj 40 Mg/4 Ml Vial IV PUSH 03/31/25 18:12 ONCE ONE Glucagon 1 mg 03/30/25 12:58 Glucagon For Inj 1 Mg Vial IM PRN PRN Hypoglycemia Protocol Glucose 15 gm 03/30/25 12:58 Glucose Oral Gel 15 Gm Of Glucse In 37.5 Gm Tube PO PRN PRN Hypoglycemia Protocol Hydralazine HCl 10 mg 03/30/25 16:04 03/30/25 21:25 Hydralazine Hcl 20 Mg/Ml Vial IV PUSH 10 mg Q4H PRN Administration Blood Pressure - High Nitroglycerin 50 mg/ Dextrose 250 mls @ 1.5 mls/hr 03/31/25 14:45 IV CONT .Q24H ALVERTO Protocol 5 MCG/MIN Insulin Aspart 3 - 6 units 03/30/25 17:00 03/31/25 12:36 Insulin Aspart (*Bkc) 100 Units/Ml SUB-Q Not Given TIDWM [facility] Protocol Insulin Aspart 1 - 3 units 03/30/25 21:00 03/30/25 20:20 Insulin Aspart (*Bkc) 100 Units/Ml SUB-Q 2 units HS [facility] Administration Protocol Insulin Glargine 15 units 03/31/25 09:00 03/31/25 12:43 Insulin Glargine (*Bkc) 100 Units/Ml SUB-Q 15 units QAM ALVERTO Administration Labetalol HCl 20 mg 03/31/25 13:01 03/31/25 14:45 Labetalol Hcl Inj 100 Mg/20 Ml Vial IV PUSH 20 mg Q1H PRN Administration SBP > 160 and HR> 60 -1st choice Losartan Potassium 50 mg 04/01/25 09:00 Losartan Potassium 25 Mg Tablet PO DAILY [facility] Metoprolol Tartrate 50 mg 03/30/25 21:00 03/31/25 08:50 Metoprolol Tartrate 50 Mg Tab PO 50 mg Q12HR [facility] Administration Morphine Sulfate 4 mg 03/30/25 13:03 Morphine Sulfate (*Crx) 4 Mg/Ml Inj IV PUSH Q2H PRN Pain Rated 7-10 Ticagrelor 90 mg 03/31/25 12:00 03/31/25 13:13 Ticagrelor 90 Mg Tablet PO Not Given Q12HR [facility] Radiology Results: ITS Impressions Head CT 03/30/25 13:55 IMPRESSION: 1. No acute intracranial process. 2. Mild scattered white matter hypoattenuation consistent with chronic small vessel ischemic disease. Chest/Abdomen/Pelvis CTA 03/30/25 14:09 IMPRESSION: 1. Normal caliber aorta with no dissection. No acute cardiopulmonary disease or acute intra-abdominal/pelvic process. 2. Large right inguinal hernia containing fat and nonobstructed loop of distal ileum and moderate-sized fat-containing left inguinal hernia. Renal Ultrasound 03/30/25 19:48 IMPRESSION: 1. No acute findings Chest X-Ray 03/31/25 08:40 IMPRESSION: 1. Interstitial pulmonary edema. Labs Labs: Laboratory Results - last 24 hr 03/30/25 03/30/25 03/30/25 17:14 18:49 20:20 WBC RBC Hgb Hct MCV MCH MCHC RDW Plt Count MPV Immature Gran % (Auto) Neut % (Auto) Lymph % (Auto) [place] % (Auto) Eos % (Auto) Baso % (Auto) Lymph # (Auto) [place] # (Auto) Eos # (Auto) Baso # (Auto) Abs Immat Gran (auto) Absolute Neuts (auto) Absolute Nucleated RBC Nucleated RBC % Sodium Potassium Chloride Carbon Dioxide Anion Gap BUN Creatinine Estim Creat Clear Calc Estimated GFR Glucose POC Capillary Glucose 249 H 334 H Calcium Phosphorus Magnesium Total Bilirubin AST ALT Alkaline Phosphatase Troponin I 3.490 H* D Total Protein Albumin Triglycerides 292 H Cholesterol 159 LDL Cholesterol Direct 60 HDL Direct 29 03/31/25 03/31/25 03/31/25 03:37 08:08 12:26 WBC 13.5 H RBC 4.92 Hgb 14.2 Hct 42.6 MCV 86.6 MCH 28.9 MCHC 33.3 RDW 13.0 Plt Count 214 MPV 11.7 H Immature Gran % (Auto) 0.3 Neut % (Auto) 73.5 H Lymph % (Auto) 16.1 L [place] % (Auto) 9.7 H Eos % (Auto) 0.1 Baso % (Auto) 0.3 Lymph # (Auto) 2.18 [place] # (Auto) 1.3 H Eos # (Auto) 0.0 Baso # (Auto) 0.0 Abs Immat Gran (auto) 0.04 H Absolute Neuts (auto) 9.9 H Absolute Nucleated RBC 0.000 Nucleated RBC % 0.0 Sodium 136 L Potassium 4.1 Chloride 103 Carbon Dioxide 26 Anion Gap 7 BUN 20 Creatinine 1.18 Estim Creat Clear Calc 76 Estimated GFR > 60 Glucose 256 H POC Capillary Glucose 249 H 255 H Calcium 9.2 Phosphorus 3.0 Magnesium 2.0 Total Bilirubin 0.8 AST 118 H ALT 56 H Alkaline Phosphatase 83 Troponin I Total Protein 7.1 Albumin 3.8 Triglycerides Cholesterol LDL Cholesterol Direct HDL Direct
[2025-03-31 17:27] LABS: Anion Gap 8 mmol/L (4-12); Blood Urea Nitrogen 19 mg/dL (9-20); Calcium 8.8 mg/dL (8.4-10.2); Carbon Dioxide 30 mmol/L (22-30); Chloride 98 mmol/L (98-107); Estimated CRCL calculation 65 ml/min; Estimated Glomerular Filt Rate 53; Glucose 280 mg/dL (65-110); Potassium 3.2 mmol/L (3.4-5.0); Sodium 136 mmol/L (137-145)
[2025-03-31] MEDS: INSULIN ASPART (*BKC) 100 UNITS/ML SUB-Q ×2 (18:30→20:46)
--- NOTE | 2025-03-31 19:35 | PC.NURSE ---
MEDS TO BED ARRIVED. DIANELYS, BROTHER AND POINT OF CONTACT, TAKING [place] HOME AND WILL RETURN WITH THEM AT BEDSIDE WHEN DISCHARGED. RN EXPLAINED TO BROTHER AND PATIENT THE MEDICATION MUST BE AT THE BEDSIDE AT TIME OF DISCHARGE. BOTH PARTIES VERBALIZED UNDERSTANDING. BROTHER AND PATIENT DID NOT WANT TO RISK MEDICATION BEING LOST AND HAVING TO PAY AGAIN FOR MEDICATION.
[2025-03-31] MEDS: TICAGRELOR 90 MG TABLET PO (20:46)
[2025-04-01] VITALS (24 sets, daily range): BP systolic 114–149; BP diastolic 65–104; PULSE 82–94; RESP 10–20; TEMP 36.6–37.4; O2SAT 92–100
[2025-04-01 03:55] LABS: Hematocrit 43.9 % (42.0-52.0); Hemoglobin 15.0 g/dL (14.0-18.0); Immature Granulocyte Percent A 0.3 % (0-0.5); Lymphocytes Absolute Auto 2.17 K/mm3 (0.9-3.2); Mean Corpuscular HGB Conc 34.2 g/dl (32-36); Mean Corpuscular Hemoglobin 29.4 pg (26-34); Mean Corpuscular Volume 85.9 fl (80-100); Nucleated Red Blood Cells Absolute Auto 0.000 K/mm3 (0.0-0.012); Nucleated Red Blood Cells Perc 0.0 % (0.0-0.2); Platelet Count Result 202 k/mm3 (150-375); Red Blood Count 5.11 M/mm3 (4.6-6.20); White Blood Count 13.1 K/mm3 (4.5-10.0)
[2025-04-01 04:07] LABS: Alanine Aminotransferase 61 U/L (6-50); Albumin Level 3.8 g/dL (3.5-5.1); Alkaline Phosphatase 77 U/L (38-126); Anion Gap 6 mmol/L (4-12); Aspartate Amino Transferase 159 U/L (17-59); Bilirubin,Total 1.3 mg/dL (0.2-1.3); Blood Urea Nitrogen 22 mg/dL (9-20); Calcium 8.9 mg/dL (8.4-10.2); Carbon Dioxide 29 mmol/L (22-30); Chloride 101 mmol/L (98-107); Estimated CRCL calculation 61 ml/min; Estimated Glomerular Filt Rate 49; Glucose 172 mg/dL (65-110); Magnesium 2.1 mg/dL (1.6-2.3); Potassium 3.1 mmol/L (3.4-5.0); Sodium 136 mmol/L (137-145); Total Protein 7.4 g/dL (6.3-8.2)
--- NOTE | 2025-04-01 07:29 | P.PNINT_ITS ---
Progress Note: A&P Assessment and Plan (1) NSTEMI (non-ST elevated myocardial infarction): Code(s): I21.4 - Non-ST elevation (NSTEMI) myocardial infarction Status: Acute Assessment and Plan: Presented with left arm pain which I although appears noncardiac in nature but patient states that pain is similar to the 1 he had when he had CO in 2017 Noncompliant with medications Abnormal EKG and elevated troponin Evaluated by Cardiology in ER and diagnosed with NSTEMI Serial troponin were done Chest CTA negative for dissection. 03/31 status post PCI and stent placement in LAD Statin, dual antiplatelet therapy, beta-lino, ARB Echo as below (2) Hypertensive emergency: Code(s): I16.1 - Hypertensive emergency Status: Acute Assessment and Plan: Presented with high blood pressure and elevated troponin Patient was on nitroglycerin infusion but now off Negative head CT Continue beta-lino, Norvasc and losartan. P.r.n. labetalol (3) Hyperglycemia: Code(s): R73.9 - Hyperglycemia, unspecified Status: Acute Assessment and Plan: Blood sugar elevated and HbA1c 8.9 Continue SSI Continue Lantus Consult dietitian and agricultural extension educator Diabetic diet (4) Elevated serum creatinine: Code(s): R79.89 - Other specified abnormal findings of blood chemistry Status: Acute Assessment and Plan: Creatinine elevated with baseline unknown. CK not significantly elevated urine electrolytes pending UA negative renal ultrasound unremarkable Initially Improved with IV fluids but patient developed pulmonary edema and had to given diuretics. Patient also received contrast Now creatinine increased to 1.53. Will hold further Lasix. Monitor urine output electrolytes and creatinine (5) Hypoxia: Code(s): R09.02 - Hypoxemia Status: Acute Assessment and Plan: Secondary to pulmonary edema. Patient required CPAP for few hours yesterday. Patient received 2 dose of Lasix yesterday. Hold further Lasix. On 4 L nasal cannula Add incentive spirometry, up in chair (6) Pulmonary edema: Code(s): J81.1 - Chronic pulmonary edema Status: Acute Assessment and Plan: See above Echo shows 1. Left ventricular systolic function is normal, estimated at 50-55. 2. There is mildly increased left ventricular wall thickness. 3. The left ventricular diastolic function is grade I diastolic dysfunction. 4. The apical septum, apical cap, basal anteroseptal, and mid anteroseptal are hypokinetic. 5. Intact interatrial septum visualized by agitated saline imaging. 6. There is mild mitral valve regurgitation. (7) Electrolyte abnormality: Code(s): E87.8 - Other disorders of electrolyte and fluid balance, not elsewhere classified Status: Acute Assessment and Plan: Replace low potassium Plan DVT prophylaxis -Lovenox Nutrition -diet ordered Code Status - Full Code Incentive spirometry, up in chair Transfer out of ICU today Subjective Date/time seen: 04/01/25 Overnight events reviewed. Patient yesterday had a cardiac catheterization after that developed pulmonary edema and hypoxia. Patient was placed on CPAP for few hours. Patient was given Lasix. Sheath was removed in the ICU which took extended period of pressure as patient is bleeding. This morning he feels better and he is on 4 L nasal cannula. He denies any shortness of breath cough chest pain arm pain nausea vomiting. He would like to eat regular food. All other systems were reviewed and were negative Good urine output. Afebrile. Blood pressure on the higher side. Sinus rhythm on the monitor. Review of Systems Review of Systems: All systems reviewed & are unremarkable except as noted in HPI and below (HPI) Exam Narrative: General: Pt is alert awake and in NAD Lungs/Chest: Trachea central Clear BS B/L, minimal bibasilar crackles. Cardiac: RRR. Normal S1 S2. No murmurs Circulation: Pedal pulses are intact and symmetrical. Abdomen: Normal bowel sounds.. Soft. NT. ND. Extremities: No clubbing, cyanosis or edema. Right groin shows no swelling or hematoma : [place] in place Neurologic: Follows commands. Moves all 4 extremities PERRL,AO x3 Skin: No Rash Objective Data Vital Signs Vital Signs: Vital Signs - 24 hr 03/31/25 08:00 03/31/25 08:00 03/31/25 08:00 Temperature Pulse Rate 102 H 102 H Pulse Rate [Right Pedal (Dorsalis Pedis) Palpation] Respiratory Rate Blood Pressure 160/100 H Pulse Oximetry 98 Oxygen Delivery High Flow Therapy with Na Oxygen Flow Rate 6 Fraction of Inspired Oxygen 03/31/25 08:00 03/31/25 08:45 03/31/25 08:50 Temperature 37.0 C Pulse Rate 102 H 91 98 Pulse Rate [Right Pedal (Dorsalis Pedis) Palpation] Respiratory Rate 16 16 Blood Pressure 160/100 H 148/106 H Pulse Oximetry 98 91 Oxygen Delivery Oxygen Flow Rate Fraction of Inspired Oxygen 03/31/25 10:00 03/31/25 11:30 03/31/25 11:30 Temperature Pulse Rate 90 85 Pulse Rate [Right Pedal (Dorsalis Pedis) Palpation] 84 Respiratory Rate 18 Blood Pressure 144/105 H Pulse Oximetry 96 Oxygen Delivery High Flow Nasal Cannula Oxygen Flow Rate 10 Fraction of Inspired Oxygen 03/31/25 11:30 03/31/25 11:45 03/31/25 11:45 Temperature Pulse Rate 87 88 Pulse Rate [Right Pedal (Dorsalis Pedis) Palpation] 83 Respiratory Rate 15 20 Blood Pressure 144/105 H 154/107 H Pulse Oximetry 94 93 Oxygen Delivery Nasal Cannula Oxygen Flow Rate 2 Fraction of Inspired Oxygen 03/31/25 12:00 03/31/25 12:00 03/31/25 12:00 Temperature Pulse Rate 85 Pulse Rate [Right Pedal (Dorsalis Pedis) Palpation] 92 Respiratory Rate 17 Blood Pressure 151/125 H Pulse Oximetry 95 92 Oxygen Delivery Nasal Cannula High Flow Therapy with Na Oxygen Flow Rate 10 10 Fraction of Inspired Oxygen 03/31/25 12:00 03/31/25 12:00 03/31/25 12:15 Temperature 36.8 C Pulse Rate 92 87 Pulse Rate [Right Pedal (Dorsalis Pedis) Palpation] 93 Respiratory Rate 20 Blood Pressure 163/121 H Pulse Oximetry 91 Oxygen Delivery Oxygen Flow Rate Fraction of Inspired Oxygen 03/31/25 12:15 03/31/25 12:30 03/31/25 12:30 Temperature Pulse Rate 93 96 Pulse Rate [Right Pedal (Dorsalis Pedis) Palpation] 96 Respiratory Rate 24 H 23 H Blood Pressure 156/111 H 157/112 H Pulse Oximetry 95 93 Oxygen Delivery Nasal Cannula Nasal Cannula Oxygen Flow Rate 10 10 Fraction of Inspired Oxygen 03/31/25 12:45 03/31/25 12:45 03/31/25 12:53 Temperature Pulse Rate 96 100 Pulse Rate [Right Pedal (Dorsalis Pedis) Palpation] 96 Respiratory Rate 23 H Blood Pressure 164/117 H Pulse Oximetry 92 Oxygen Delivery Nasal Cannula Oxygen Flow Rate 10 Fraction of Inspired Oxygen 03/31/25 13:00 03/31/25 13:00 03/31/25 13:00 Temperature Pulse Rate 97 101 H Pulse Rate [Right Pedal (Dorsalis Pedis) Palpation] 97 Respiratory Rate 20 21 H Blood Pressure 152/114 H 152/114 H Pulse Oximetry 92 89 L Oxygen Delivery Nasal Cannula Oxygen Flow Rate 10 Fraction of Inspired Oxygen 03/31/25 13:15 03/31/25 13:15 03/31/25 13:30 Temperature Pulse Rate 95 99 Pulse Rate [Right Pedal (Dorsalis Pedis) Palpation] 95 Respiratory Rate 23 H 26 H Blood Pressure 151/107 H 159/130 H Pulse Oximetry 90 88 L Oxygen Delivery Nasal Cannula Nasal Cannula Oxygen Flow Rate 10 10 Fraction of Inspired Oxygen 03/31/25 13:30 03/31/25 13:45 03/31/25 13:45 Temperature Pulse Rate 94 Pulse Rate [Right Pedal (Dorsalis Pedis) Palpation] 99 94 Respiratory Rate 15 Blood Pressure 172/119 H Pulse Oximetry 86 L Oxygen Delivery Nasal Cannula Oxygen Flow Rate 10 Fraction of Inspired Oxygen 03/31/25 13:55 03/31/25 14:00 03/31/25 14:00 Temperature Pulse Rate 90 92 93 Pulse Rate [Right Pedal (Dorsalis Pedis) Palpation] Respiratory Rate 20 19 Blood Pressure 145/113 H Pulse Oximetry 93 92 Oxygen Delivery CPAP CPAP Oxygen Flow Rate Fraction of Inspired Oxygen 60 03/31/25 14:00 03/31/25 14:00 03/31/25 14:15 Temperature Pulse Rate 92 Pulse Rate [Right Pedal (Dorsalis Pedis) Palpation] 93 93 Respiratory Rate 20 Blood Pressure 145/108 H Pulse Oximetry 92 Oxygen Delivery Oxygen Flow Rate Fraction of Inspired Oxygen 03/31/25 14:15 03/31/25 14:30 03/31/25 14:30 Temperature Pulse Rate 93 93 Pulse Rate [Right Pedal (Dorsalis Pedis) Palpation] 93 Respiratory Rate 16 19 Blood Pressure 147/107 H 149/110 H Pulse Oximetry 93 95 Oxygen Delivery CPAP CPAP Oxygen Flow Rate Fraction of Inspired Oxygen 60 03/31/25 14:32 03/31/25 14:32 03/31/25 14:37 Temperature Pulse Rate 93 91 Pulse Rate [Right Pedal (Dorsalis Pedis) Palpation] 94 Respiratory Rate 25 H 22 H Blood Pressure 149/110 H 160/126 H Pulse Oximetry 95 95 Oxygen Delivery CPAP BiPAP Oxygen Flow Rate Fraction of Inspired Oxygen 03/31/25 14:37 03/31/25 14:40 03/31/25 14:40 Temperature Pulse Rate 92 Pulse Rate [Right Pedal (Dorsalis Pedis) Palpation] 92 92 Respiratory Rate 24 H Blood Pressure 154/114 H Pulse Oximetry 91 Oxygen Delivery BiPAP Oxygen Flow Rate Fraction of Inspired Oxygen 03/31/25 14:45 03/31/25 14:45 03/31/25 14:45 Temperature Pulse Rate 92 92 Pulse Rate [Right Pedal (Dorsalis Pedis) Palpation] Respiratory Rate 23 H Blood Pressure 126/99 H Pulse Oximetry 92 91 Oxygen Delivery CPAP BiPAP Oxygen Flow Rate Fraction of Inspired Oxygen 60 03/31/25 14:45 03/31/25 14:50 03/31/25 14:50 Temperature Pulse Rate 89 Pulse Rate [Right Pedal (Dorsalis Pedis) Palpation] 92 88 Respiratory Rate 17 Blood Pressure 134/100 H Pulse Oximetry 90 Oxygen Delivery BiPAP Oxygen Flow Rate Fraction of Inspired Oxygen 03/31/25 14:55 03/31/25 14:55 03/31/25 15:00 Temperature Pulse Rate 87 89 Pulse Rate [Right Pedal (Dorsalis Pedis) Palpation] 87 Respiratory Rate 19 19 Blood Pressure 122/97 H 129/90 Pulse Oximetry 93 95 Oxygen Delivery BiPAP BiPAP Oxygen Flow Rate Fraction of Inspired Oxygen 03/31/25 15:00 03/31/25 15:00 03/31/25 15:02 Temperature Pulse Rate 88 87 Pulse Rate [Right Pedal (Dorsalis Pedis) Palpation] 89 Respiratory Rate 19 19 Blood Pressure 129/90 122/97 H Pulse Oximetry 93 93 Oxygen Delivery BiPAP Oxygen Flow Rate Fraction of Inspired Oxygen 03/31/25 15:02 03/31/25 15:05 03/31/25 15:05 Temperature Pulse Rate 87 Pulse Rate [Right Pedal (Dorsalis Pedis) Palpation] 87 87 Respiratory Rate 18 Blood Pressure 133/97 H Pulse Oximetry 94 Oxygen Delivery BiPAP Oxygen Flow Rate Fraction of Inspired Oxygen 03/31/25 15:10 03/31/25 15:10 03/31/25 15:15 Temperature Pulse Rate 89 86 Pulse Rate [Right Pedal (Dorsalis Pedis) Palpation] 89 Respiratory Rate 20 17 Blood Pressure 136/101 H 130/99 H Pulse Oximetry 94 94 Oxygen Delivery BiPAP BiPAP Oxygen Flow Rate Fraction of Inspired Oxygen 03/31/25 15:15 03/31/25 15:30 03/31/25 15:30 Temperature Pulse Rate 86 Pulse Rate [Right Pedal (Dorsalis Pedis) Palpation] 86 86 Respiratory Rate 15 Blood Pressure 129/93 H Pulse Oximetry 95 Oxygen Delivery BiPAP Oxygen Flow Rate Fraction of Inspired Oxygen 03/31/25 15:45 03/31/25 15:45 03/31/25 16:00 Temperature Pulse Rate 85 Pulse Rate [Right Pedal (Dorsalis Pedis) Palpation] 85 Respiratory Rate 16 Blood Pressure 130/91 H Pulse Oximetry 98 100 Oxygen Delivery BiPAP CPAP Oxygen Flow Rate Fraction of Inspired Oxygen 60 03/31/25 16:00 03/31/25 16:00 03/31/25 16:00 Temperature Pulse Rate 92 86 Pulse Rate [Right Pedal (Dorsalis Pedis) Palpation] 85 Respiratory Rate 14 Blood Pressure 133/96 H Pulse Oximetry 99 Oxygen Delivery BiPAP Oxygen Flow Rate Fraction of Inspired Oxygen 03/31/25 16:02 03/31/25 16:02 03/31/25 16:45 Temperature Pulse Rate 86 88 Pulse Rate [Right Pedal (Dorsalis Pedis) Palpation] 86 Respiratory Rate 17 12 Blood Pressure 133/96 H Pulse Oximetry 98 99 Oxygen Delivery BiPAP CPAP Oxygen Flow Rate Fraction of Inspired Oxygen 60 03/31/25 17:00 03/31/25 18:00 03/31/25 18:00 Temperature 36.6 C Pulse Rate 87 92 85 Pulse Rate [Right Pedal (Dorsalis Pedis) Palpation] Respiratory Rate 15 14 Blood Pressure 132/96 H 120/84 Pulse Oximetry 96 98 Oxygen Delivery Oxygen Flow Rate Fraction of Inspired Oxygen 03/31/25 19:00 03/31/25 20:00 03/31/25 20:00 Temperature Pulse Rate 93 92 Pulse Rate [Right Pedal (Dorsalis Pedis) Palpation] Respiratory Rate 18 Blood Pressure 133/97 H Pulse Oximetry 98 97 Oxygen Delivery High Flow Nasal Cannula Oxygen Flow Rate 6 Fraction of Inspired Oxygen 03/31/25 20:00 03/31/25 20:18 03/31/25 20:46 Temperature 36.7 C Pulse Rate 92 88 94 Pulse Rate [Right Pedal (Dorsalis Pedis) Palpation] Respiratory Rate 11 L Blood Pressure 149/102 H Pulse Oximetry 97 95 Oxygen Delivery High Flow Nasal Cannula Oxygen Flow Rate 6 Fraction of Inspired Oxygen 03/31/25 21:00 03/31/25 22:00 03/31/25 22:00 Temperature Pulse Rate 89 82 82 Pulse Rate [Right Pedal (Dorsalis Pedis) Palpation] Respiratory Rate 19 14 Blood Pressure 142/94 H 131/96 H Pulse Oximetry 96 96 Oxygen Delivery Oxygen Flow Rate Fraction of Inspired Oxygen 03/31/25 23:00 04/01/25 00:00 04/01/25 00:00 Temperature 37.4 C Pulse Rate 82 83 Pulse Rate [Right Pedal (Dorsalis Pedis) Palpation] Respiratory Rate 16 15 Blood Pressure 141/106 H 134/97 H Pulse Oximetry 100 96 96 Oxygen Delivery High Flow Nasal Cannula Oxygen Flow Rate 4 Fraction of Inspired Oxygen 04/01/25 00:00 04/01/25 01:00 04/01/25 01:58 Temperature Pulse Rate 83 88 Pulse Rate [Right Pedal (Dorsalis Pedis) Palpation] Respiratory Rate 19 Blood Pressure 140/104 H Pulse Oximetry 95 94 Oxygen Delivery High Flow Nasal Cannula Oxygen Flow Rate 4 Fraction of Inspired Oxygen 04/01/25 02:00 04/01/25 02:00 04/01/25 02:00 Temperature Pulse Rate 88 88 86 Pulse Rate [Right Pedal (Dorsalis Pedis) Palpation] Respiratory Rate 17 14 Blood Pressure 139/100 H 143/103 H Pulse Oximetry 94 93 Oxygen Delivery Oxygen Flow Rate Fraction of Inspired Oxygen 04/01/25 02:01 04/01/25 02:30 04/01/25 03:00 Temperature Pulse Rate 89 87 87 Pulse Rate [Right Pedal (Dorsalis Pedis) Palpation] Respiratory Rate 18 18 13 Blood Pressure 138/99 H Pulse Oximetry 94 95 97 Oxygen Delivery Oxygen Flow Rate Fraction of Inspired Oxygen 04/01/25 04:00 04/01/25 04:00 04/01/25 04:01 Temperature 37.1 C Pulse Rate 82 83 Pulse Rate [Right Pedal (Dorsalis Pedis) Palpation] Respiratory Rate 16 Blood Pressure 126/91 H Pulse Oximetry 94 93 Oxygen Delivery High Flow Nasal Cannula Oxygen Flow Rate 4 Fraction of Inspired Oxygen 04/01/25 05:00 04/01/25 06:00 04/01/25 06:00 Temperature Pulse Rate 82 84 84 Pulse Rate [Right Pedal (Dorsalis Pedis) Palpation] Respiratory Rate 16 17 Blood Pressure 134/94 H 127/95 H Pulse Oximetry 92 94 Oxygen Delivery Oxygen Flow Rate Fraction of Inspired Oxygen Intake/Output Intake/Output: Intake & Output 03/29/25 03/30/25 03/31/25 04/01/25 23:59 23:59 23:59 23:59 Intake Total 1228.7 630.5 250 Output Total 1600 2700 1050 Balance -371.3 -2069.5 -800 Meds/Results Medications: Active Medications Generic Name Dose Route Start Last Admin Trade Name Freq PRN Reason Stop Dose Admin Acetaminophen 1,000 mg 03/30/25 20:51 03/30/25 21:25 Acetaminophen 500 Mg Tablet PO 1,000 mg Q6H PRN Administration Mild Pain (1-3) or Fever Amlodipine Besylate 5 mg 03/31/25 13:00 03/31/25 13:14 Amlodipine Besylate 5 Mg Tablet PO 5 mg DAILY ALVERTO Administration Aspirin 81 mg 03/31/25 09:00 03/31/25 08:50 Aspirin 81 Mg Enteric Tablet PO 81 mg QAM ALVERTO Administration Atorvastatin Calcium 80 mg 03/31/25 09:00 03/31/25 08:50 Atorvastatin 40 Mg Tablet PO 80 mg DAILY ALVERTO Administration Dextrose 12.5 gm 03/30/25 12:58 Dextrose 50% 25 Gm/50 Ml Syringe IV PUSH PRN PRN Hypoglycemia Protocol Furosemide 40 mg 04/01/25 09:00 Furosemide Inj 40 Mg/4 Ml Vial IV PUSH 04/03/25 09:01 DAILY ALVERTO Glucagon 1 mg 03/30/25 12:58 Glucagon For Inj 1 Mg Vial IM PRN PRN Hypoglycemia Protocol Glucose 15 gm 03/30/25 12:58 Glucose Oral Gel 15 Gm Of Glucse In 37.5 Gm Tube PO PRN PRN Hypoglycemia Protocol Hydralazine HCl 10 mg 03/30/25 16:04 03/30/25 21:25 Hydralazine Hcl 20 Mg/Ml Vial IV PUSH 10 mg Q4H PRN Administration Blood Pressure - High Nitroglycerin 50 mg/ Dextrose 250 mls @ 1.5 mls/hr 03/31/25 14:45 IV CONT .Q24H ALVERTO Protocol 5 MCG/MIN Insulin Aspart 3 - 6 units 03/30/25 17:00 03/31/25 18:30 Insulin Aspart (*Bkc) 100 Units/Ml SUB-Q 4 units TIDWM ALVERTO Administration Protocol Insulin Aspart 1 - 3 units 03/30/25 21:00 03/31/25 20:46 Insulin Aspart (*Bkc) 100 Units/Ml SUB-Q 1 units HS ALVERTO Administration Protocol Insulin Glargine 15 units 03/31/25 09:00 03/31/25 12:43 Insulin Glargine (*Bkc) 100 Units/Ml SUB-Q 15 units QAM [facility] Administration Labetalol HCl 20 mg 03/31/25 13:01 03/31/25 14:45 Labetalol Hcl Inj 100 Mg/20 Ml Vial IV PUSH 20 mg Q1H PRN Administration SBP > 160 and HR> 60 -1st choice Losartan Potassium 50 mg 04/01/25 09:00 Losartan Potassium 25 Mg Tablet PO DAILY [facility] Metoprolol Tartrate 50 mg 03/30/25 21:00 03/31/25 20:46 Metoprolol Tartrate 50 Mg Tab PO 50 mg Q12HR [facility] Administration Morphine Sulfate 4 mg 03/30/25 13:03 Morphine Sulfate (*Crx) 4 Mg/Ml Inj IV PUSH Q2H PRN Pain Rated 7-10 Potassium Bicarbonate 25 meq 04/01/25 11:00 Potassium Bicarbonate 25 Meq Tabef PO 04/01/25 11:01 ONCE ONE Ticagrelor 90 mg 03/31/25 12:00 03/31/25 20:46 Ticagrelor 90 Mg Tablet PO 90 mg Q12HR [facility] Administration Radiology Results: ITS Impressions Head CT 03/30/25 13:55 IMPRESSION: 1. No acute intracranial process. 2. Mild scattered white matter hypoattenuation consistent with chronic small vessel ischemic disease. Chest/Abdomen/Pelvis CTA 03/30/25 14:09 IMPRESSION: 1. Normal caliber aorta with no dissection. No acute cardiopulmonary disease or acute intra-abdominal/pelvic process. 2. Large right inguinal hernia containing fat and nonobstructed loop of distal ileum and moderate-sized fat-containing left inguinal hernia. Renal Ultrasound 03/30/25 19:48 IMPRESSION: 1. No acute findings Chest X-Ray 03/31/25 08:40 IMPRESSION: 1. Interstitial pulmonary edema. Labs Labs: Laboratory Results - last 24 hr 03/31/25 03/31/25 03/31/25 08:08 12:26 17:06 WBC RBC Hgb Hct MCV MCH MCHC RDW Plt Count MPV Immature Gran % (Auto) Neut % (Auto) Lymph % (Auto) [place] % (Auto) Eos % (Auto) Baso % (Auto) Lymph # (Auto) [place] # (Auto) Eos # (Auto) Baso # (Auto) Abs Immat Gran (auto) Absolute Neuts (auto) Absolute Nucleated RBC Nucleated RBC % Sodium 136 L Potassium 3.2 L Chloride 98 Carbon Dioxide 30 Anion Gap 8 BUN 19 Creatinine 1.43 H Estim Creat Clear Calc 65 Estimated GFR 53 L Glucose 280 H POC Capillary Glucose 249 H 255 H Calcium 8.8 Phosphorus Magnesium Total Bilirubin AST ALT Alkaline Phosphatase Total Protein Albumin 03/31/25 03/31/25 04/01/25 18:28 20:46 03:41 WBC 13.1 H RBC 5.11 Hgb 15.0 Hct 43.9 MCV 85.9 MCH 29.4 MCHC 34.2 RDW 13.3 Plt Count 202 MPV 11.6 H Immature Gran % (Auto) 0.3 Neut % (Auto) 69.8 Lymph % (Auto) 16.6 L [place] % (Auto) 12.4 H Eos % (Auto) 0.5 Baso % (Auto) 0.4 Lymph # (Auto) 2.17 [place] # (Auto) 1.6 H Eos # (Auto) 0.1 Baso # (Auto) 0.1 Abs Immat Gran (auto) 0.04 H Absolute Neuts (auto) 9.2 H Absolute Nucleated RBC 0.000 Nucleated RBC % 0.0 Sodium 136 L Potassium 3.1 L Chloride 101 Carbon Dioxide 29 Anion Gap 6 BUN 22 H Creatinine 1.53 H Estim Creat Clear Calc 61 Estimated GFR 49 L Glucose 172 H POC Capillary Glucose 280 H 243 H Calcium 8.9 Phosphorus 3.6 Magnesium 2.1 Total Bilirubin 1.3 AST 159 H ALT 61 H Alkaline Phosphatase 77 Total Protein 7.4 Albumin 3.8
[2025-04-01] MEDS: ASPIRIN 81 MG ENTERIC TABLET PO (08:34)
[2025-04-01] MEDS: ATORVASTATIN 40 MG TABLET 80 MG PO (08:34)
[2025-04-01] MEDS: LOSARTAN POTASSIUM 25 MG TABLET 50 MG PO (08:34)
[2025-04-01] MEDS: METOPROLOL TARTRATE 50 MG TAB PO (08:34)
[2025-04-01] MEDS: TICAGRELOR 90 MG TABLET PO ×2 (08:34→21:10)
[2025-04-01] MEDS: INSULIN GLARGINE (*BKC) 100 UNITS/ML 15 UNITS SUB-Q (09:33)
[2025-04-01] MEDS: POTASSIUM BICARBONATE 25 MEQ TABEF 50 MEQ PO (09:33)
[2025-04-01] MEDS: INSULIN ASPART (*BKC) 100 UNITS/ML SUB-Q (11:37)
[2025-04-01] MEDS: POTASSIUM BICARBONATE 25 MEQ TABEF PO (11:38)
--- NOTE | 2025-04-01 11:46 | PM.PNCARD ---
Progress Note: A&P Assessment and Plan (1) CAD (coronary artery disease): Qualifiers: Coronary Disease-Associated Artery/Lesion type: [place] artery [place] vs. transplanted heart: [place] heart Associated angina: with unstable angina Qualified Code(s): I25.110 - Atherosclerotic heart disease of [place] coronary artery with unstable angina pectoris Code(s): I25.10 - Atherosclerotic heart disease of [place] coronary artery without angina pectoris Status: Acute (2) Old anteroseptal myocardial infarction: Code(s): I25.2 - Old myocardial infarction Status: Acute (3) Elevated serum creatinine: Code(s): R79.89 - Other specified abnormal findings of blood chemistry Status: Acute (4) Hypertensive emergency: Code(s): I16.1 - Hypertensive emergency Status: Acute (5) NSTEMI (non-ST elevated myocardial infarction): Code(s): I21.4 - Non-ST elevation (NSTEMI) myocardial infarction Status: Acute Plan Impression: 1. Patient with known history of coronary disease and acute microinfarction back in 2018. Subsequent coronary angiography revealed total occlusion of the left anterior descending artery. She is post acute intervention with placement of drug-eluting stent. Patient has been noncompliant for his cardiology follow-up. -status post acute intervention with angiogram showing subtotal occlusion of the left anterior descending artery distal to the stent as well as InStent stenosis. Status post intervention with LEIGH placement. Patient is stable postop. 2. Accelerated hypertension on this admission. Patient is noncompliant with his medications. Blood pressure was as high as 214/137 mm of mercury. Patient was given sublingual nitroglycerin. -blood pressure now improved. 3. Acute non ST segment elevation myocardial infarction. EKG reveals old anteroseptal myocardial infarction with mild ST changes which likely represents dyskinesis involving anterior wall from previous myocardial infarction. -cannot rule out some myocardial injury due to ST elevation in the anterior leads. Will follow up EKG. 4. Mildly elevated creatinine in 1.4. 5. Persistent left arm pain. Likely secondary to accelerated hypertension. Could also be from acute myocardial infarction. 6. Patient had rather acute pulmonary edema last night requiring IV Lasix. Clinically stable without any recurrent chest pain or shortness of breath. Recommendations; #. Successful angioplasty of the left anterior descending artery with LEIGH placement. Angiogram site is stable without hematoma or vascular problems. #. Blood pressure not stabilized. Patient currently on metoprolol 50 mg b.i.d. amlodipine 5 mg daily. Will avoid Alfredo inhibitors due to elevated creatinine of 1.5 #. Lab data reviewed. Sodium 136 potassium 3.1, BUN 22 g 1.5. #. Twelve lead EKG today. Monitor shows significant ST elevation. Patient may have sustained an anterior wall injury or possibly stunned myocardium #. Continue with aspirin and Brilinta. #. Echocardiogram reviewed from 03/30/2025. The left ventricular size is normal platelets 2 ejection fraction 50-55%. Mild left ventricular hypertrophy is noted. There is grade 1 diastolic dysfunction. The apical septum, apical cap basal anteroseptal and mid anteroseptal segments are hypokinetic. Suggesting LAD territory Subjective Date/time seen: 04/01/25 11:46 Interval history: Review of HPI: Patient with known history of coronary disease and history of LAD angioplasty with stent placement in 2018 presents with persistent left upper extremity pain and elevated cardiac enzymes. Patient was diagnosed with acute non ST segment elevation myocardial infarction subsequently underwent cardiac catheterization yesterday which showed subtotal occlusion of LAD and required insertion of stent. There was InStent stenosis as well as the distal to the stent. The procedure was successful and patient is doing well postoperatively. Blood pressure was markedly elevated on admission which which was treated with metoprolol and nitroglycerin. Subjective; Patient was examined at the bedside. Patient is sitting in a chair and appears comfortable. Heart rate and blood pressure are stable. His the right groin at the site of angiogram and angioplasty is stable without hematoma and good femoral pulses Pred No complaints of shortness of breath, chest pain or leg edema. Monitor shows normal sinus rhythm. Review of Systems Review of Systems: Twelve point review of system was completed. Pertinent positive and negative findings per HPI. Cardiovascular negative for chest pain, shortness of breath, palpitations. Pulmonary system negative for shortness of breath or cough or hemoptysis blood Gastrointestinal negative for abdominal pain, nausea vomiting or diarrhea. Neurovascular negative for any new neurological changes, seizures, syncope. Exam Narrative: Patient was examined at the bedside. Patient is awake alert appears comfortable except for the left arm pain. Head and neck examination is unremarkable. Head is atraumatic. Sclerae nonicteric. ENT examination is negative. Neck is supple. There is no JVD or carotid bruit. Thyroid is not enlarged. There is no cervical lymphadenopathy. Lungs are clear to auscultation percussion. Heart sounds reveal normal S1-S2. No significant murmurs S3 or S4 noted. Rhythm is regular Abdomen is soft and nontender. There is no hepatosplenomegaly. Bowel sounds are present. Neurological examination is intact. Skin and musculoskeletal is normal. Objective Data Vital Signs Vital Signs: Vital Signs - 24 hr 03/31/25 12:00 03/31/25 12:00 03/31/25 12:00 Temperature Pulse Rate 85 Pulse Rate [Right Pedal (Dorsalis Pedis) Palpation] 92 Respiratory Rate 17 Blood Pressure 151/125 H Pulse Oximetry 95 92 Oxygen Delivery Nasal Cannula High Flow Therapy with Na Oxygen Flow Rate 10 10 Fraction of Inspired Oxygen 03/31/25 12:00 03/31/25 12:00 03/31/25 12:15 Temperature 36.8 C Pulse Rate 92 87 Pulse Rate [Right Pedal (Dorsalis Pedis) Palpation] 93 Respiratory Rate 20 Blood Pressure 163/121 H Pulse Oximetry 91 Oxygen Delivery Oxygen Flow Rate Fraction of Inspired Oxygen 03/31/25 12:15 03/31/25 12:30 03/31/25 12:30 Temperature Pulse Rate 93 96 Pulse Rate [Right Pedal (Dorsalis Pedis) Palpation] 96 Respiratory Rate 24 H 23 H Blood Pressure 156/111 H 157/112 H Pulse Oximetry 95 93 Oxygen Delivery Nasal Cannula Nasal Cannula Oxygen Flow Rate 10 10 Fraction of Inspired Oxygen 03/31/25 12:45 03/31/25 12:45 03/31/25 12:53 Temperature Pulse Rate 96 100 Pulse Rate [Right Pedal (Dorsalis Pedis) Palpation] 96 Respiratory Rate 23 H Blood Pressure 164/117 H Pulse Oximetry 92 Oxygen Delivery Nasal Cannula Oxygen Flow Rate 10 Fraction of Inspired Oxygen 03/31/25 13:00 03/31/25 13:00 03/31/25 13:00 Temperature Pulse Rate 97 101 H Pulse Rate [Right Pedal (Dorsalis Pedis) Palpation] 97 Respiratory Rate 20 21 H Blood Pressure 152/114 H 152/114 H Pulse Oximetry 92 89 L Oxygen Delivery Nasal Cannula Oxygen Flow Rate 10 Fraction of Inspired Oxygen 03/31/25 13:15 03/31/25 13:15 03/31/25 13:30 Temperature Pulse Rate 95 99 Pulse Rate [Right Pedal (Dorsalis Pedis) Palpation] 95 Respiratory Rate 23 H 26 H Blood Pressure 151/107 H 159/130 H Pulse Oximetry 90 88 L Oxygen Delivery Nasal Cannula Nasal Cannula Oxygen Flow Rate 10 10 Fraction of Inspired Oxygen 03/31/25 13:30 03/31/25 13:45 03/31/25 13:45 Temperature Pulse Rate 94 Pulse Rate [Right Pedal (Dorsalis Pedis) Palpation] 99 94 Respiratory Rate 15 Blood Pressure 172/119 H Pulse Oximetry 86 L Oxygen Delivery Nasal Cannula Oxygen Flow Rate 10 Fraction of Inspired Oxygen 03/31/25 13:55 03/31/25 14:00 03/31/25 14:00 Temperature Pulse Rate 90 92 93 Pulse Rate [Right Pedal (Dorsalis Pedis) Palpation] Respiratory Rate 20 19 Blood Pressure 145/113 H Pulse Oximetry 93 92 Oxygen Delivery CPAP CPAP Oxygen Flow Rate Fraction of Inspired Oxygen 60 03/31/25 14:00 03/31/25 14:00 03/31/25 14:15 Temperature Pulse Rate 92 Pulse Rate [Right Pedal (Dorsalis Pedis) Palpation] 93 93 Respiratory Rate 20 Blood Pressure 145/108 H Pulse Oximetry 92 Oxygen Delivery Oxygen Flow Rate Fraction of Inspired Oxygen 03/31/25 14:15 03/31/25 14:30 03/31/25 14:30 Temperature Pulse Rate 93 93 Pulse Rate [Right Pedal (Dorsalis Pedis) Palpation] 93 Respiratory Rate 16 19 Blood Pressure 147/107 H 149/110 H Pulse Oximetry 93 95 Oxygen Delivery CPAP CPAP Oxygen Flow Rate Fraction of Inspired Oxygen 60 03/31/25 14:32 03/31/25 14:32 03/31/25 14:37 Temperature Pulse Rate 93 91 Pulse Rate [Right Pedal (Dorsalis Pedis) Palpation] 94 Respiratory Rate 25 H 22 H Blood Pressure 149/110 H 160/126 H Pulse Oximetry 95 95 Oxygen Delivery CPAP BiPAP Oxygen Flow Rate Fraction of Inspired Oxygen 03/31/25 14:37 03/31/25 14:40 03/31/25 14:40 Temperature Pulse Rate 92 Pulse Rate [Right Pedal (Dorsalis Pedis) Palpation] 92 92 Respiratory Rate 24 H Blood Pressure 154/114 H Pulse Oximetry 91 Oxygen Delivery BiPAP Oxygen Flow Rate Fraction of Inspired Oxygen 03/31/25 14:45 03/31/25 14:45 03/31/25 14:45 Temperature Pulse Rate 92 92 Pulse Rate [Right Pedal (Dorsalis Pedis) Palpation] Respiratory Rate 23 H Blood Pressure 126/99 H Pulse Oximetry 92 91 Oxygen Delivery CPAP BiPAP Oxygen Flow Rate Fraction of Inspired Oxygen 60 03/31/25 14:45 03/31/25 14:50 03/31/25 14:50 Temperature Pulse Rate 89 Pulse Rate [Right Pedal (Dorsalis Pedis) Palpation] 92 88 Respiratory Rate 17 Blood Pressure 134/100 H Pulse Oximetry 90 Oxygen Delivery BiPAP Oxygen Flow Rate Fraction of Inspired Oxygen 03/31/25 14:55 03/31/25 14:55 03/31/25 15:00 Temperature Pulse Rate 87 89 Pulse Rate [Right Pedal (Dorsalis Pedis) Palpation] 87 Respiratory Rate 19 19 Blood Pressure 122/97 H 129/90 Pulse Oximetry 93 95 Oxygen Delivery BiPAP BiPAP Oxygen Flow Rate Fraction of Inspired Oxygen 03/31/25 15:00 03/31/25 15:00 03/31/25 15:02 Temperature Pulse Rate 88 87 Pulse Rate [Right Pedal (Dorsalis Pedis) Palpation] 89 Respiratory Rate 19 19 Blood Pressure 129/90 122/97 H Pulse Oximetry 93 93 Oxygen Delivery BiPAP Oxygen Flow Rate Fraction of Inspired Oxygen 03/31/25 15:02 03/31/25 15:05 03/31/25 15:05 Temperature Pulse Rate 87 Pulse Rate [Right Pedal (Dorsalis Pedis) Palpation] 87 87 Respiratory Rate 18 Blood Pressure 133/97 H Pulse Oximetry 94 Oxygen Delivery BiPAP Oxygen Flow Rate Fraction of Inspired Oxygen 03/31/25 15:10 03/31/25 15:10 03/31/25 15:15 Temperature Pulse Rate 89 86 Pulse Rate [Right Pedal (Dorsalis Pedis) Palpation] 89 Respiratory Rate 20 17 Blood Pressure 136/101 H 130/99 H Pulse Oximetry 94 94 Oxygen Delivery BiPAP BiPAP Oxygen Flow Rate Fraction of Inspired Oxygen 03/31/25 15:15 03/31/25 15:30 03/31/25 15:30 Temperature Pulse Rate 86 Pulse Rate [Right Pedal (Dorsalis Pedis) Palpation] 86 86 Respiratory Rate 15 Blood Pressure 129/93 H Pulse Oximetry 95 Oxygen Delivery BiPAP Oxygen Flow Rate Fraction of Inspired Oxygen 03/31/25 15:45 03/31/25 15:45 03/31/25 16:00 Temperature Pulse Rate 85 Pulse Rate [Right Pedal (Dorsalis Pedis) Palpation] 85 Respiratory Rate 16 Blood Pressure 130/91 H Pulse Oximetry 98 100 Oxygen Delivery BiPAP CPAP Oxygen Flow Rate Fraction of Inspired Oxygen 60 03/31/25 16:00 03/31/25 16:00 03/31/25 16:00 Temperature Pulse Rate 92 86 Pulse Rate [Right Pedal (Dorsalis Pedis) Palpation] 85 Respiratory Rate 14 Blood Pressure 133/96 H Pulse Oximetry 99 Oxygen Delivery BiPAP Oxygen Flow Rate Fraction of Inspired Oxygen 03/31/25 16:02 03/31/25 16:02 03/31/25 16:45 Temperature Pulse Rate 86 88 Pulse Rate [Right Pedal (Dorsalis Pedis) Palpation] 86 Respiratory Rate 17 12 Blood Pressure 133/96 H Pulse Oximetry 98 99 Oxygen Delivery BiPAP CPAP Oxygen Flow Rate Fraction of Inspired Oxygen 60 03/31/25 17:00 03/31/25 18:00 03/31/25 18:00 Temperature 36.6 C Pulse Rate 87 92 85 Pulse Rate [Right Pedal (Dorsalis Pedis) Palpation] Respiratory Rate 15 14 Blood Pressure 132/96 H 120/84 Pulse Oximetry 96 98 Oxygen Delivery Oxygen Flow Rate Fraction of Inspired Oxygen 03/31/25 19:00 03/31/25 20:00 03/31/25 20:00 Temperature Pulse Rate 93 92 Pulse Rate [Right Pedal (Dorsalis Pedis) Palpation] Respiratory Rate 18 Blood Pressure 133/97 H Pulse Oximetry 98 97 Oxygen Delivery High Flow Nasal Cannula Oxygen Flow Rate 6 Fraction of Inspired Oxygen 03/31/25 20:00 03/31/25 20:18 03/31/25 20:46 Temperature 36.7 C Pulse Rate 92 88 94 Pulse Rate [Right Pedal (Dorsalis Pedis) Palpation] Respiratory Rate 11 L Blood Pressure 149/102 H Pulse Oximetry 97 95 Oxygen Delivery High Flow Nasal Cannula Oxygen Flow Rate 6 Fraction of Inspired Oxygen 03/31/25 21:00 03/31/25 22:00 03/31/25 22:00 Temperature Pulse Rate 89 82 82 Pulse Rate [Right Pedal (Dorsalis Pedis) Palpation] Respiratory Rate 19 14 Blood Pressure 142/94 H 131/96 H Pulse Oximetry 96 96 Oxygen Delivery Oxygen Flow Rate Fraction of Inspired Oxygen 03/31/25 23:00 04/01/25 00:00 04/01/25 00:00 Temperature 37.4 C Pulse Rate 82 83 Pulse Rate [Right Pedal (Dorsalis Pedis) Palpation] Respiratory Rate 16 15 Blood Pressure 141/106 H 134/97 H Pulse Oximetry 100 96 96 Oxygen Delivery High Flow Nasal Cannula Oxygen Flow Rate 4 Fraction of Inspired Oxygen 04/01/25 00:00 04/01/25 01:00 04/01/25 01:58 Temperature Pulse Rate 83 88 Pulse Rate [Right Pedal (Dorsalis Pedis) Palpation] Respiratory Rate 19 Blood Pressure 140/104 H Pulse Oximetry 95 94 Oxygen Delivery High Flow Nasal Cannula Oxygen Flow Rate 4 Fraction of Inspired Oxygen 04/01/25 02:00 04/01/25 02:00 04/01/25 02:00 Temperature Pulse Rate 88 88 86 Pulse Rate [Right Pedal (Dorsalis Pedis) Palpation] Respiratory Rate 17 14 Blood Pressure 139/100 H 143/103 H Pulse Oximetry 94 93 Oxygen Delivery Oxygen Flow Rate Fraction of Inspired Oxygen 04/01/25 02:01 04/01/25 02:30 04/01/25 03:00 Temperature Pulse Rate 89 87 87 Pulse Rate [Right Pedal (Dorsalis Pedis) Palpation] Respiratory Rate 18 18 13 Blood Pressure 138/99 H Pulse Oximetry 94 95 97 Oxygen Delivery Oxygen Flow Rate Fraction of Inspired Oxygen 04/01/25 04:00 04/01/25 04:00 04/01/25 04:01 Temperature 37.1 C Pulse Rate 82 83 Pulse Rate [Right Pedal (Dorsalis Pedis) Palpation] Respiratory Rate 16 Blood Pressure 126/91 H Pulse Oximetry 94 93 Oxygen Delivery High Flow Nasal Cannula Oxygen Flow Rate 4 Fraction of Inspired Oxygen 04/01/25 05:00 04/01/25 06:00 04/01/25 06:00 Temperature Pulse Rate 82 84 84 Pulse Rate [Right Pedal (Dorsalis Pedis) Palpation] Respiratory Rate 16 17 Blood Pressure 134/94 H 127/95 H Pulse Oximetry 92 94 Oxygen Delivery Oxygen Flow Rate Fraction of Inspired Oxygen 04/01/25 07:00 04/01/25 08:00 04/01/25 08:00 Temperature 36.9 C Pulse Rate 91 91 88 Pulse Rate [Right Pedal (Dorsalis Pedis) Palpation] Respiratory Rate 13 20 15 Blood Pressure 141/103 H 138/91 H Pulse Oximetry 97 93 94 Oxygen Delivery High Flow Nasal Cannula Oxygen Flow Rate 2 Fraction of Inspired Oxygen 60 04/01/25 08:00 04/01/25 08:34 04/01/25 09:00 Temperature Pulse Rate 88 90 88 Pulse Rate [Right Pedal (Dorsalis Pedis) Palpation] Respiratory Rate 15 Blood Pressure 131/89 Pulse Oximetry 94 Oxygen Delivery Oxygen Flow Rate Fraction of Inspired Oxygen 04/01/25 10:00 04/01/25 10:00 Temperature Pulse Rate 84 84 Pulse Rate [Right Pedal (Dorsalis Pedis) Palpation] Respiratory Rate 10 L Blood Pressure Pulse Oximetry 94 Oxygen Delivery Oxygen Flow Rate Fraction of Inspired Oxygen Intake/Output Intake/Output: Intake & Output 03/29/25 03/30/25 03/31/25 04/01/25 23:59 23:59 23:59 23:59 Intake Total 1228.7 630.5 610 Output Total 1600 2700 1050 Balance -371.3 -2069.5 -440 Meds/Results Medications: Active Medications Generic Name Dose Route Start Last Admin Trade Name Freq PRN Reason Stop Dose Admin Acetaminophen 1,000 mg 03/30/25 20:51 03/30/25 21:25 Acetaminophen 500 Mg Tablet PO 1,000 mg Q6H PRN Administration Mild Pain (1-3) or Fever Amlodipine Besylate 5 mg 03/31/25 13:00 04/01/25 08:33 Amlodipine Besylate 5 Mg Tablet PO 5 mg DAILY ALVERTO Administration Aspirin 81 mg 03/31/25 09:00 04/01/25 08:34 Aspirin 81 Mg Enteric Tablet PO 81 mg QAM ALVERTO Administration Atorvastatin Calcium 80 mg 03/31/25 09:00 04/01/25 08:34 Atorvastatin 40 Mg Tablet PO 80 mg DAILY ALVERTO Administration Dextrose 12.5 gm 03/30/25 12:58 Dextrose 50% 25 Gm/50 Ml Syringe IV PUSH PRN PRN Hypoglycemia Protocol Glucagon 1 mg 03/30/25 12:58 Glucagon For Inj 1 Mg Vial IM PRN PRN Hypoglycemia Protocol Glucose 15 gm 03/30/25 12:58 Glucose Oral Gel 15 Gm Of Glucse In 37.5 Gm Tube PO PRN PRN Hypoglycemia Protocol Hydralazine HCl 10 mg 03/30/25 16:04 03/30/25 21:25 Hydralazine Hcl 20 Mg/Ml Vial IV PUSH 10 mg Q4H PRN Administration Blood Pressure - High Insulin Aspart 3 - 6 units 03/30/25 17:00 04/01/25 11:37 Insulin Aspart (*Bkc) 100 Units/Ml SUB-Q 4 units TIDWM ALVERTO Administration Protocol Insulin Aspart 1 - 3 units 03/30/25 21:00 03/31/25 20:46 Insulin Aspart (*Bkc) 100 Units/Ml SUB-Q 1 units HS ALVERTO Administration Protocol Insulin Glargine 15 units 03/31/25 09:00 04/01/25 09:33 Insulin Glargine (*Bkc) 100 Units/Ml SUB-Q 15 units QAM ALVERTO Administration Labetalol HCl 20 mg 03/31/25 13:01 03/31/25 14:45 Labetalol Hcl Inj 100 Mg/20 Ml Vial IV PUSH 20 mg Q1H PRN Administration SBP > 160 and HR> 60 -1st choice Losartan Potassium 50 mg 04/01/25 09:00 04/01/25 08:34 Losartan Potassium 25 Mg Tablet PO 50 mg DAILY ALVERTO Administration Metoprolol Tartrate 50 mg 03/30/25 21:00 04/01/25 08:34 Metoprolol Tartrate 50 Mg Tab PO 50 mg Q12HR ALVERTO Administration Morphine Sulfate 4 mg 03/30/25 13:03 Morphine Sulfate (*Crx) 4 Mg/Ml Inj IV PUSH Q2H PRN Pain Rated 7-10 Ticagrelor 90 mg 03/31/25 12:00 04/01/25 08:34 Ticagrelor 90 Mg Tablet PO 90 mg Q12HR ALVERTO Administration Radiology Results: ITS Impressions Head CT 03/30/25 13:55 IMPRESSION: 1. No acute intracranial process. 2. Mild scattered white matter hypoattenuation consistent with chronic small vessel ischemic disease. Chest/Abdomen/Pelvis CTA 03/30/25 14:09 IMPRESSION: 1. Normal caliber aorta with no dissection. No acute cardiopulmonary disease or acute intra-abdominal/pelvic process. 2. Large right inguinal hernia containing fat and nonobstructed loop of distal ileum and moderate-sized fat-containing left inguinal hernia. Renal Ultrasound 03/30/25 19:48 IMPRESSION: 1. No acute findings Chest X-Ray 03/31/25 08:40 IMPRESSION: 1. Interstitial pulmonary edema. Labs Labs: Laboratory Results - last 24 hr 03/31/25 03/31/25 03/31/25 12:26 17:06 18:28 WBC RBC Hgb Hct MCV MCH MCHC RDW Plt Count MPV Immature Gran % (Auto) Neut % (Auto) Lymph % (Auto) Major % (Auto) Eos % (Auto) Baso % (Auto) Lymph # (Auto) Major # (Auto) Eos # (Auto) Baso # (Auto) Abs Immat Gran (auto) Absolute Neuts (auto) Absolute Nucleated RBC Nucleated RBC % Sodium 136 L Potassium 3.2 L Chloride 98 Carbon Dioxide 30 Anion Gap 8 BUN 19 Creatinine 1.43 H Estim Creat Clear Calc 65 Estimated GFR 53 L Glucose 280 H POC Capillary Glucose 255 H 280 H Calcium 8.8 Phosphorus Magnesium Total Bilirubin AST ALT Alkaline Phosphatase Total Protein Albumin 03/31/25 04/01/25 04/01/25 20:46 03:41 07:18 WBC 13.1 H RBC 5.11 Hgb 15.0 Hct 43.9 MCV 85.9 MCH 29.4 MCHC 34.2 RDW 13.3 Plt Count 202 MPV 11.6 H Immature Gran % (Auto) 0.3 Neut % (Auto) 69.8 Lymph % (Auto) 16.6 L Major % (Auto) 12.4 H Eos % (Auto) 0.5 Baso % (Auto) 0.4 Lymph # (Auto) 2.17 Major # (Auto) 1.6 H Eos # (Auto) 0.1 Baso # (Auto) 0.1 Abs Immat Gran (auto) 0.04 H Absolute Neuts (auto) 9.2 H Absolute Nucleated RBC 0.000 Nucleated RBC % 0.0 Sodium 136 L Potassium 3.1 L Chloride 101 Carbon Dioxide 29 Anion Gap 6 BUN 22 H Creatinine 1.53 H Estim Creat Clear Calc 61 Estimated GFR 49 L Glucose 172 H POC Capillary Glucose 243 H 185 H Calcium 8.9 Phosphorus 3.6 Magnesium 2.1 Total Bilirubin 1.3 AST 159 H ALT 61 H Alkaline Phosphatase 77 Total Protein 7.4 Albumin 3.8 04/01/25 11:12 WBC RBC Hgb Hct MCV MCH MCHC RDW Plt Count MPV Immature Gran % (Auto) Neut % (Auto) Lymph % (Auto) Major % (Auto) Eos % (Auto) Baso % (Auto) Lymph # (Auto) Major # (Auto) Eos # (Auto) Baso # (Auto) Abs Immat Gran (auto) Absolute Neuts (auto) Absolute Nucleated RBC Nucleated RBC % Sodium Potassium Chloride Carbon Dioxide Anion Gap BUN Creatinine Estim Creat Clear Calc Estimated GFR Glucose POC Capillary Glucose 290 H Calcium Phosphorus Magnesium Total Bilirubin AST ALT Alkaline Phosphatase Total Protein Albumin
--- NOTE | 2025-04-01 12:09 | ECG_ITS ---
Test Date: 2025-04-01 14:18:17 Measurements Intervals [place] Rate: 90 P: 38 SD: 124 QRS: 11 QRSD: 102 T: 96 QT: 344 QTc: 421 Interpretive Statements SINUS RHYTHM LEFT ATRIAL ENLARGEMENT CANNOT R/O SEPTAL INFARCT, AGE INDETERMINATE ST ELEVATION IN ANTERIOR LEADS- CONSIDER PERICARDITIS, ACUTE INJURY, OR EARLY REPOLARIZATION ABNORMALITY ABNORMAL ECG Compared to ECG 03/31/2025 16:09:14 ST ELEVATION HAS DECREASED Electronically Signed On 04-01-2025 14:36:59 CDT by Bradley Horne D.O.
[2025-04-01 12:36] LABS: NT Pro B Type Natriuretic Pept 3900 pg/mL (19.9-100)
[2025-04-01] MEDS: ISOSORBIDE MONONITRATE 30 MG TAB.ER.24H PO (13:58)
--- NOTE | 2025-04-01 18:35 | PM.IMPN ---
Progress Note: A&P Assessment and Plan (1) CAD (coronary artery disease): Qualifiers: Coronary Disease-Associated Artery/Lesion type: [place] artery [place] vs. transplanted heart: [place] heart Associated angina: with unstable angina Qualified Code(s): I25.110 - Atherosclerotic heart disease of [place] coronary artery with unstable angina pectoris Code(s): I25.10 - Atherosclerotic heart disease of [place] coronary artery without angina pectoris Status: Acute (2) Hypertensive emergency: Code(s): I16.1 - Hypertensive emergency Status: Acute (3) NSTEMI (non-ST elevated myocardial infarction): Code(s): I21.4 - Non-ST elevation (NSTEMI) myocardial infarction Status: Acute (4) Diabetes: Code(s): E11.9 - Type 2 diabetes mellitus without complications Status: Acute (5) Hypoxia: Code(s): R09.02 - Hypoxemia Status: Acute (6) Pulmonary edema: Code(s): J81.1 - Chronic pulmonary edema Status: Acute Plan 41-year-old male with PMH CAD status post stenting in 2017, noncompliant, hypertension presents to [place] [facility] on 03/30/2025 complaining of left arm pain. The patient has not seen a physician in 5 years. He states he woke up with left arm pain which is similar to his heart attack in 2017. ----- On 03/31/2025 patient underwent a left heart catheterization with Dr. Grace Conclusion:: Successful with cessation of blood flow to chronic/subacute occlusion of the LAD. Culprit was [place] coronary disease just distal to the proximal LAD stent. Treatment of the blockage was done using 3 x 15 drug-eluting stent distal and overlapping the proximal LAD stent. Postdilatation of the stent 3.5 mm. -residual 60% stenosis in the large diagonal/ramus intermedius to be assessed clinically as an outpatient. ----- NSTEMI/CAD/noncompliance: Patient has been counseled extensively about the importance of compliance and the risk of not taking his medications and following up. Status post successful placement of drug-eluting stent in the LAD as above, patient is on aspirin and Brilinta. Continue metoprolol, amlodipine, isosorbide mononitrate 30 mg p.o. q.a.m., hydralazine 25 mg p.o. q.8 hours, atorvastatin 80 mg p.o. q.day. At this time hold losartan due to elevated serum creatinine. Restart ARB once serum creatinine better Hypertensive emergency: Nitroglycerin GTT has been discontinued. Continue to monitor blood pressures with the above medications. Diabetes, HbA1c 8.9. Lantus started, insulin sliding scale with Accu-Cheks. early childhood educator aide and dietitian consulted. Diabetic diet. Check LUDY 65 and zinc transporter AB Elevated serum creatinine. Baseline unknown. Patient received Lasix, ARB, contrast. Renal ultrasound unremarkable. Continue to monitor urine output and serum creatinine. No fluids, no Lasix. Replace potassium. Recheck BMP. Hypoxia/pulmonary edema: Patient received fluids for renal protection and developed shortness of breath and pulmonary edema. He was on CPAP in the ICU for a few hours on 03/31/2025. Received Lasix as well. Discontinue due to his elevated serum creatinine. He is doing better on 2 L nasal cannula, wean to room air per protocol as tolerated. TTE on 03/30/2025 demonstrates EF 50-55%, mild left ventricular hypertrophy, grade 1 diastolic dysfunction, hypokinesis of the LAD territory. Daily weights, intake/output. Continue incentive spirometer ----- Patient wishes to be full code. Diabetic diet Accu-Cheks a.c. HS Saline lock IV SCDs Cardiac rehab on discharge. On 04/01/2025 transfer from ICU to IMU. Time Spent With Patient Time with patient: Greater than 35 minutes Subjective Date/time seen: 04/01/25 18:35 Interval history: No major acute overnight events. Patient sits up in chair, breathing comfortably. Reports no chest pain, no cough, no shortness of breath. Review of Systems Review of Systems: All systems reviewed & are unremarkable except as noted in HPI and below (Subjective) Exam Const: General: comfortable and no acute distress Other: A&O x3 HENMT: Mouth: Yes moist mucous membranes Eyes: Pupils: Equal, round and reactive pupils present Neck: Neck: supple Resp: Effort & Inspection: normal respiratory effort Other: Scant crackles Cardio: Rate: regular rate Rhythm: regular rhythm Heart sounds: no murmurs GI: Inspection: non-distended GI Palp: Yes Soft to palpation and No Tenderness to palpation present (GI) Neuro: Motor exam (neuro): 5/5 motor strength present throughout Extrem: Other: Trace pitting edema of bilateral lower extremity Objective Data Vital Signs Vital Signs: Vital Signs - 24 hr 03/31/25 19:00 03/31/25 20:00 03/31/25 20:00 Temperature Pulse Rate 93 92 Respiratory Rate 18 Blood Pressure 133/97 H Pulse Oximetry 98 97 Oxygen Delivery High Flow Nasal Cannula Oxygen Flow Rate 6 Fraction of Inspired Oxygen 03/31/25 20:00 03/31/25 20:18 03/31/25 20:46 Temperature 98.0 F Pulse Rate 92 88 94 Respiratory Rate 11 L Blood Pressure 149/102 H Pulse Oximetry 97 95 Oxygen Delivery High Flow Nasal Cannula Oxygen Flow Rate 6 Fraction of Inspired Oxygen 03/31/25 21:00 03/31/25 22:00 03/31/25 22:00 Temperature Pulse Rate 89 82 82 Respiratory Rate 19 14 Blood Pressure 142/94 H 131/96 H Pulse Oximetry 96 96 Oxygen Delivery Oxygen Flow Rate Fraction of Inspired Oxygen 03/31/25 23:00 04/01/25 00:00 04/01/25 00:00 Temperature 99.3 F Pulse Rate 82 83 Respiratory Rate 16 15 Blood Pressure 141/106 H 134/97 H Pulse Oximetry 100 96 96 Oxygen Delivery High Flow Nasal Cannula Oxygen Flow Rate 4 Fraction of Inspired Oxygen 04/01/25 00:00 04/01/25 01:00 04/01/25 01:58 Temperature Pulse Rate 83 88 Respiratory Rate 19 Blood Pressure 140/104 H Pulse Oximetry 95 94 Oxygen Delivery High Flow Nasal Cannula Oxygen Flow Rate 4 Fraction of Inspired Oxygen 04/01/25 02:00 04/01/25 02:00 04/01/25 02:00 Temperature Pulse Rate 88 88 86 Respiratory Rate 17 14 Blood Pressure 139/100 H 143/103 H Pulse Oximetry 94 93 Oxygen Delivery Oxygen Flow Rate Fraction of Inspired Oxygen 04/01/25 02:01 04/01/25 02:30 04/01/25 03:00 Temperature Pulse Rate 89 87 87 Respiratory Rate 18 18 13 Blood Pressure 138/99 H Pulse Oximetry 94 95 97 Oxygen Delivery Oxygen Flow Rate Fraction of Inspired Oxygen 04/01/25 04:00 04/01/25 04:00 04/01/25 04:01 Temperature 98.7 F Pulse Rate 82 83 Respiratory Rate 16 Blood Pressure 126/91 H Pulse Oximetry 94 93 Oxygen Delivery High Flow Nasal Cannula Oxygen Flow Rate 4 Fraction of Inspired Oxygen 04/01/25 05:00 04/01/25 06:00 04/01/25 06:00 Temperature Pulse Rate 82 84 84 Respiratory Rate 16 17 Blood Pressure 134/94 H 127/95 H Pulse Oximetry 92 94 Oxygen Delivery Oxygen Flow Rate Fraction of Inspired Oxygen 04/01/25 07:00 04/01/25 08:00 04/01/25 08:00 Temperature 98.4 F Pulse Rate 91 91 88 Respiratory Rate 13 20 15 Blood Pressure 141/103 H 138/91 H Pulse Oximetry 97 93 94 Oxygen Delivery High Flow Nasal Cannula Oxygen Flow Rate 2 Fraction of Inspired Oxygen 60 04/01/25 08:00 04/01/25 08:34 04/01/25 09:00 Temperature Pulse Rate 88 90 88 Respiratory Rate 15 Blood Pressure 131/89 Pulse Oximetry 94 Oxygen Delivery Oxygen Flow Rate Fraction of Inspired Oxygen 04/01/25 10:00 04/01/25 10:00 04/01/25 12:00 Temperature Pulse Rate 84 84 94 Respiratory Rate 10 L 14 Blood Pressure Pulse Oximetry 94 100 Oxygen Delivery Oxygen Flow Rate 2 Fraction of Inspired Oxygen 60 04/01/25 12:00 04/01/25 12:00 04/01/25 14:00 Temperature Pulse Rate 94 94 94 Respiratory Rate 14 Blood Pressure 149/96 H Pulse Oximetry 100 Oxygen Delivery Oxygen Flow Rate Fraction of Inspired Oxygen 04/01/25 16:00 04/01/25 16:00 04/01/25 17:57 Temperature 98.2 F Pulse Rate 83 83 Respiratory Rate 12 Blood Pressure 115/65 Pulse Oximetry 98 98 Oxygen Delivery Oxygen Flow Rate 2 Fraction of Inspired Oxygen Intake/Output Intake/Output: Intake & Output 03/29/25 03/30/25 03/31/25 04/01/25 23:59 23:59 23:59 23:59 Intake Total 1228.7 630.5 850 Output Total 1600 2700 1050 Balance -371.3 -2069.5 -200 Meds/Results Medications: Active Medications Generic Name Dose Route Start Last Admin Trade Name Freq PRN Reason Stop Dose Admin Acetaminophen 1,000 mg 03/30/25 20:51 03/30/25 21:25 Acetaminophen 500 Mg Tablet PO 1,000 mg Q6H PRN Administration Mild Pain (1-3) or Fever Amlodipine Besylate 5 mg 03/31/25 13:00 04/01/25 08:33 Amlodipine Besylate 5 Mg Tablet PO 5 mg DAILY ALVERTO Administration Aspirin 81 mg 03/31/25 09:00 04/01/25 08:34 Aspirin 81 Mg Enteric Tablet PO 81 mg QAM [facility] Administration Atorvastatin Calcium 80 mg 03/31/25 09:00 04/01/25 08:34 Atorvastatin 40 Mg Tablet PO 80 mg DAILY ALVERTO Administration Dextrose 12.5 gm 03/30/25 12:58 Dextrose 50% 25 Gm/50 Ml Syringe IV PUSH PRN PRN Hypoglycemia Protocol Glucagon 1 mg 03/30/25 12:58 Glucagon For Inj 1 Mg Vial IM PRN PRN Hypoglycemia Protocol Glucose 15 gm 03/30/25 12:58 Glucose Oral Gel 15 Gm Of Glucse In 37.5 Gm Tube PO PRN PRN Hypoglycemia Protocol Hydralazine HCl 10 mg 03/30/25 16:04 03/30/25 21:25 Hydralazine Hcl 20 Mg/Ml Vial IV PUSH 10 mg Q4H PRN Administration Blood Pressure - High Hydralazine HCl 25 mg 04/01/25 22:00 Hydralazine Hcl 25 Mg Tablet PO Q8HR [facility] Insulin Aspart 3 - 6 units 03/30/25 17:00 04/01/25 16:40 Insulin Aspart (*Bkc) 100 Units/Ml SUB-Q Not Given TIDWM [facility] Protocol Insulin Aspart 1 - 3 units 03/30/25 21:00 03/31/25 20:46 Insulin Aspart (*Bkc) 100 Units/Ml SUB-Q 1 units HS [facility] Administration Protocol Insulin Glargine 15 units 03/31/25 09:00 04/01/25 09:33 Insulin Glargine (*Bkc) 100 Units/Ml SUB-Q 15 units QAM [facility] Administration Isosorbide Mononitrate 30 mg 04/01/25 13:00 04/01/25 13:58 Isosorbide Mononitrate 30 Mg Tab.Er.24h PO 30 mg QAM [facility] Administration Labetalol HCl 20 mg 03/31/25 13:01 03/31/25 14:45 Labetalol Hcl Inj 100 Mg/20 Ml Vial IV PUSH 20 mg Q1H PRN Administration SBP > 160 and HR> 60 -1st choice Losartan Potassium 50 mg 04/01/25 09:00 04/01/25 08:34 Losartan Potassium 25 Mg Tablet PO 50 mg On Hold: 04/01/25 18:34 DAILY ALVERTO Administration Metoprolol Tartrate 50 mg 03/30/25 21:00 04/01/25 08:34 Metoprolol Tartrate 50 Mg Tab PO 50 mg Q12HR ALVERTO Administration Morphine Sulfate 4 mg 03/30/25 13:03 Morphine Sulfate (*Crx) 4 Mg/Ml Inj IV PUSH Q2H PRN Pain Rated 7-10 Ticagrelor 90 mg 03/31/25 12:00 04/01/25 08:34 Ticagrelor 90 Mg Tablet PO 90 mg Q12HR ALEVRTO Administration Radiology Results: ITS Impressions Head CT 03/30/25 13:55 IMPRESSION: 1. No acute intracranial process. 2. Mild scattered white matter hypoattenuation consistent with chronic small vessel ischemic disease. Chest/Abdomen/Pelvis CTA 03/30/25 14:09 IMPRESSION: 1. Normal caliber aorta with no dissection. No acute cardiopulmonary disease or acute intra-abdominal/pelvic process. 2. Large right inguinal hernia containing fat and nonobstructed loop of distal ileum and moderate-sized fat-containing left inguinal hernia. Renal Ultrasound 03/30/25 19:48 IMPRESSION: 1. No acute findings Chest X-Ray 03/31/25 08:40 IMPRESSION: 1. Interstitial pulmonary edema. Labs Labs: Laboratory Results - last 24 hr 03/31/25 03/31/25 04/01/25 18:28 20:46 03:41 WBC 13.1 H RBC 5.11 Hgb 15.0 Hct 43.9 MCV 85.9 MCH 29.4 MCHC 34.2 RDW 13.3 Plt Count 202 MPV 11.6 H Immature Gran % (Auto) 0.3 Neut % (Auto) 69.8 Lymph % (Auto) 16.6 L [place] % (Auto) 12.4 H Eos % (Auto) 0.5 Baso % (Auto) 0.4 Lymph # (Auto) 2.17 [place] # (Auto) 1.6 H Eos # (Auto) 0.1 Baso # (Auto) 0.1 Abs Immat Gran (auto) 0.04 H Absolute Neuts (auto) 9.2 H Absolute Nucleated RBC 0.000 Nucleated RBC % 0.0 Sodium 136 L Potassium 3.1 L Chloride 101 Carbon Dioxide 29 Anion Gap 6 BUN 22 H Creatinine 1.53 H Estim Creat Clear Calc 61 Estimated GFR 49 L Glucose 172 H POC Capillary Glucose 280 H 243 H Calcium 8.9 Phosphorus 3.6 Magnesium 2.1 Total Bilirubin 1.3 AST 159 H ALT 61 H Alkaline Phosphatase 77 NT-Pro-B Natriuret Pep 3900 H Total Protein 7.4 Albumin 3.8 04/01/25 04/01/25 04/01/25 07:18 11:12 16:34 WBC RBC Hgb Hct MCV MCH MCHC RDW Plt Count MPV Immature Gran % (Auto) Neut % (Auto) Lymph % (Auto) [place] % (Auto) Eos % (Auto) Baso % (Auto) Lymph # (Auto) [place] # (Auto) Eos # (Auto) Baso # (Auto) Abs Immat Gran (auto) Absolute Neuts (auto) Absolute Nucleated RBC Nucleated RBC % Sodium Potassium Chloride Carbon Dioxide Anion Gap BUN Creatinine Estim Creat Clear Calc Estimated GFR Glucose POC Capillary Glucose 185 H 290 H 195 H Calcium Phosphorus Magnesium Total Bilirubin AST ALT Alkaline Phosphatase NT-Pro-B Natriuret Pep Total Protein Albumin
[2025-04-01 20:11] LABS: Anion Gap 4 mmol/L (4-12); Blood Urea Nitrogen 37 mg/dL (9-20); Calcium 8.7 mg/dL (8.4-10.2); Carbon Dioxide 32 mmol/L (22-30); Chloride 99 mmol/L (98-107); Estimated CRCL calculation 48 ml/min; Estimated Glomerular Filt Rate 38; Glucose 220 mg/dL (65-110); Potassium 3.3 mmol/L (3.4-5.0); Sodium 135 mmol/L (137-145)
[2025-04-02] VITALS (16 sets, daily range): BP systolic 115–132; BP diastolic 70–93; PULSE 81–100; RESP 16–20; TEMP 36.5–37; O2SAT 94–100
[2025-04-02 04:37] LABS: Hematocrit 41.7 % (42.0-52.0); Hemoglobin 13.9 g/dL (14.0-18.0); Immature Granulocyte Percent A 0.5 % (0-0.5); Lymphocytes Absolute Auto 2.84 K/mm3 (0.9-3.2); Mean Corpuscular HGB Conc 33.3 g/dl (32-36); Mean Corpuscular Hemoglobin 29.2 pg (26-34); Mean Corpuscular Volume 87.6 fl (80-100); Nucleated Red Blood Cells Absolute Auto 0.000 K/mm3 (0.0-0.012); Nucleated Red Blood Cells Perc 0.0 % (0.0-0.2); Platelet Count Result 204 k/mm3 (150-375); Red Blood Count 4.76 M/mm3 (4.6-6.20); White Blood Count 11.3 K/mm3 (4.5-10.0)
[2025-04-02 05:12] LABS: Alanine Aminotransferase 40 U/L (6-50); Albumin Level 3.6 g/dL (3.5-5.1); Alkaline Phosphatase 73 U/L (38-126); Anion Gap 7 mmol/L (4-12); Aspartate Amino Transferase 69 U/L (17-59); Bilirubin,Total 1.1 mg/dL (0.2-1.3); Blood Urea Nitrogen 34 mg/dL (9-20); Calcium 8.6 mg/dL (8.4-10.2); Carbon Dioxide 26 mmol/L (22-30); Chloride 102 mmol/L (98-107); Estimated CRCL calculation 53 ml/min; Estimated Glomerular Filt Rate 42; Glucose 164 mg/dL (65-110); Magnesium 2.2 mg/dL (1.6-2.3); Potassium 3.1 mmol/L (3.4-5.0); Sodium 135 mmol/L (137-145); Total Protein 7.0 g/dL (6.3-8.2)
--- NOTE | 2025-04-02 08:59 | PM.IMPN ---
Progress Note: A&P Assessment and Plan (1) CAD (coronary artery disease): Qualifiers: Coronary Disease-Associated Artery/Lesion type: [place] artery [place] vs. transplanted heart: [place] heart Associated angina: with unstable angina Qualified Code(s): I25.110 - Atherosclerotic heart disease of [place] coronary artery with unstable angina pectoris Code(s): I25.10 - Atherosclerotic heart disease of [place] coronary artery without angina pectoris Status: Acute (2) Hypertensive emergency: Code(s): I16.1 - Hypertensive emergency Status: Acute (3) NSTEMI (non-ST elevated myocardial infarction): Code(s): I21.4 - Non-ST elevation (NSTEMI) myocardial infarction Status: Acute (4) Diabetes: Code(s): E11.9 - Type 2 diabetes mellitus without complications Status: Acute (5) Hypoxia: Code(s): R09.02 - Hypoxemia Status: Acute (6) Pulmonary edema: Code(s): J81.1 - Chronic pulmonary edema Status: Acute (7) Acute kidney injury: Code(s): N17.9 - Acute kidney failure, unspecified Status: Acute Plan 41-year-old male with PMH CAD status post stenting in 2017, noncompliant, hypertension presents to [place] [facility] on 03/30/2025 complaining of left arm pain. The patient has not seen a physician in 5 years. He states he woke up with left arm pain which is similar to his heart attack in 2017. On 03/31/2025 patient underwent a left heart catheterization with Dr. Grace Conclusion:: Successful with cessation of blood flow to chronic/subacute occlusion of the LAD. Culprit was [place] coronary disease just distal to the proximal LAD stent. Treatment of the blockage was done using 3 x 15 drug-eluting stent distal and overlapping the proximal LAD stent. Postdilatation of the stent 3.5 mm. -residual 60% stenosis in the large diagonal/ramus intermedius to be assessed clinically as an outpatient. ----- NSTEMI/CAD/noncompliance: Patient has been counseled extensively about the importance of compliance and the risk of not taking his medications and following up. Status post successful placement of drug-eluting stent in the LAD as above, patient is on aspirin and Brilinta. Continue metoprolol, amlodipine, isosorbide mononitrate 30 mg p.o. q.a.m., hydralazine 25 mg p.o. q.8 hours, atorvastatin 80 mg p.o. q.day. At this time hold losartan due to elevated serum creatinine. Restart ARB once serum creatinine better. Follow Cardiology recommendations. Hypertensive emergency: Nitroglycerin GTT has been discontinued. Continue to monitor blood pressures with the above medications. Diabetes: HbA1c 8.9. Lantus started, insulin sliding scale with Accu-Cheks. certified breastfeeding educator and dietitian consulted. Diabetic diet. Check LUDY 65 and zinc transporter AB JUDY: Baseline unknown. Presented with serum creatinine 1.40, improvement to 1.18 on day 2 of admission. Serum creatinine peaked at 1.91 on 04/01/2025: CK not significantly elevated, renal ultrasound unremarkable, patient received contrast and diuretics for angiogram and fluid overload, respectively. Continue to monitor urine output and serum creatinine. Appears to have achieved without Lasix or fluids now. Hypokalemia: Replace, recheck. Transaminitis improving Hypoxia/pulmonary edema: Patient received fluids for renal protection and developed shortness of breath and pulmonary edema. He was on CPAP in the ICU for a few hours on 03/31/2025. Received Lasix as well. Discontinued due to his elevated serum creatinine. Was doing well on 2 L nasal cannula. Wean to room air on 04/02/2025. TTE on 03/30/2025 demonstrates EF 50-55%, mild left ventricular hypertrophy, grade 1 diastolic dysfunction, hypokinesis of the LAD territory. Daily weights, intake/output. Continue incentive spirometer ----- Patient wishes to be full code. Diabetic diet Accu-Cheks a.c. HS Saline lock IV SCDs, encourage ambulation 3 times daily. Cardiac rehab on discharge. On 04/01/2025 transfer from ICU to IMU, on 04/02/2025 transfer to medical floor telemetry. Time Spent With Patient Time with patient: Greater than 35 minutes Subjective Date/time seen: 04/02/25 08:59 Interval history: No major acute overnight events. Patient sits up in chair, breathing comfortably. Denies chest pain, shortness of breath, fever. Denies cough. Denies leg swelling. Review of Systems Review of Systems: All systems reviewed & are unremarkable except as noted in HPI and below (Subjective) Exam Const: General: comfortable and no acute distress Other: A&O x3 HENMT: Mouth: Yes moist mucous membranes Eyes: Pupils: Equal, round and reactive pupils present Neck: Neck: supple Resp: Effort & Inspection: normal respiratory effort Auscultation: clear to auscultation bilaterally Other: Crackles resolved Cardio: Rate: regular rate Rhythm: regular rhythm Heart sounds: no murmurs GI: Inspection: non-distended GI Palp: Yes Soft to palpation and No Tenderness to palpation present (GI) Neuro: Motor exam (neuro): 5/5 motor strength present throughout Extrem: General: normal to inspection Other: Trace pitting edema resolved from day prior Objective Data Vital Signs Vital Signs: Vital Signs - 24 hr 04/01/25 09:00 04/01/25 10:00 04/01/25 10:00 Temperature Pulse Rate 88 84 84 Respiratory Rate 15 10 L Blood Pressure 131/89 Pulse Oximetry 94 94 Oxygen Flow Rate Fraction of Inspired Oxygen 04/01/25 12:00 04/01/25 12:00 04/01/25 12:00 Temperature Pulse Rate 94 94 94 Respiratory Rate 14 14 Blood Pressure 149/96 H Pulse Oximetry 100 100 Oxygen Flow Rate 2 Fraction of Inspired Oxygen 60 04/01/25 14:00 04/01/25 16:00 04/01/25 16:00 Temperature 98.2 F Pulse Rate 94 83 Respiratory Rate 12 Blood Pressure 115/65 Pulse Oximetry 98 98 Oxygen Flow Rate 2 Fraction of Inspired Oxygen 04/01/25 17:57 04/01/25 19:55 04/01/25 20:00 Temperature 97.9 F Pulse Rate 83 89 93 Respiratory Rate 17 Blood Pressure 114/75 Pulse Oximetry 97 Oxygen Flow Rate Fraction of Inspired Oxygen 04/01/25 22:00 04/01/25 23:55 04/02/25 00:00 Temperature 98.5 F Pulse Rate 87 92 100 Respiratory Rate 15 Blood Pressure 118/74 Pulse Oximetry 95 Oxygen Flow Rate Fraction of Inspired Oxygen 04/02/25 02:00 04/02/25 04:00 04/02/25 04:00 Temperature 97.9 F Pulse Rate 88 91 92 Respiratory Rate 16 Blood Pressure 132/92 H Pulse Oximetry 95 Oxygen Flow Rate Fraction of Inspired Oxygen 04/02/25 06:00 04/02/25 08:00 Temperature 97.7 F Pulse Rate 90 96 Respiratory Rate 16 Blood Pressure 131/93 H Pulse Oximetry 94 Oxygen Flow Rate Fraction of Inspired Oxygen Intake/Output Intake/Output: Intake & Output 03/30/25 03/31/25 04/01/25 04/02/25 23:59 23:59 23:59 23:59 Intake Total 1228.7 630.5 1090 150 Output Total 1600 2700 1050 0 Balance -371.3 -2069.5 40 150 Meds/Results Medications: Active Medications Generic Name Dose Route Start Last Admin Trade Name Freq PRN Reason Stop Dose Admin Acetaminophen 1,000 mg 03/30/25 20:51 03/30/25 21:25 Acetaminophen 500 Mg Tablet PO 1,000 mg Q6H PRN Administration Mild Pain (1-3) or Fever Amlodipine Besylate 5 mg 03/31/25 13:00 04/01/25 08:33 Amlodipine Besylate 5 Mg Tablet PO 5 mg DAILY ALVERTO Administration Aspirin 81 mg 03/31/25 09:00 04/01/25 08:34 Aspirin 81 Mg Enteric Tablet PO 81 mg QAM ALVERTO Administration Atorvastatin Calcium 80 mg 03/31/25 09:00 04/01/25 08:34 Atorvastatin 40 Mg Tablet PO 80 mg DAILY ALVRETO Administration Dextrose 12.5 gm 03/30/25 12:58 Dextrose 50% 25 Gm/50 Ml Syringe IV PUSH PRN PRN Hypoglycemia Protocol Glucagon 1 mg 03/30/25 12:58 Glucagon For Inj 1 Mg Vial IM PRN PRN Hypoglycemia Protocol Glucose 15 gm 03/30/25 12:58 Glucose Oral Gel 15 Gm Of Glucse In 37.5 Gm Tube PO PRN PRN Hypoglycemia Protocol Hydralazine HCl 10 mg 03/30/25 16:04 03/30/25 21:25 Hydralazine Hcl 20 Mg/Ml Vial IV PUSH 10 mg Q4H PRN Administration Blood Pressure - High Hydralazine HCl 25 mg 04/01/25 22:00 04/02/25 05:56 Hydralazine Hcl 25 Mg Tablet PO Not Given Q8HR [facility] Insulin Aspart 3 - 6 units 03/30/25 17:00 04/02/25 08:46 Insulin Aspart (*Bkc) 100 Units/Ml SUB-Q Not Given TIDWM [facility] Protocol Insulin Aspart 1 - 3 units 03/30/25 21:00 04/01/25 21:01 Insulin Aspart (*Bkc) 100 Units/Ml SUB-Q Not Given HS [facility] Protocol Insulin Glargine 15 units 03/31/25 09:00 04/01/25 09:33 Insulin Glargine (*Bkc) 100 Units/Ml SUB-Q 15 units QAM ALVERTO Administration Isosorbide Mononitrate 30 mg 04/01/25 13:00 04/01/25 13:58 Isosorbide Mononitrate 30 Mg Tab.Er.24h PO 30 mg QAM ALVERTO Administration Labetalol HCl 20 mg 03/31/25 13:01 03/31/25 14:45 Labetalol Hcl Inj 100 Mg/20 Ml Vial IV PUSH 20 mg Q1H PRN Administration SBP > 160 and HR> 60 -1st choice Losartan Potassium 50 mg 04/01/25 09:00 04/01/25 08:34 Losartan Potassium 25 Mg Tablet PO 50 mg On Hold: 04/01/25 18:34 DAILY ALVERTO Administration Metoprolol Tartrate 50 mg 03/30/25 21:00 04/01/25 21:07 Metoprolol Tartrate 50 Mg Tab PO Not Given Q12HR [facility] Morphine Sulfate 4 mg 03/30/25 13:03 Morphine Sulfate (*Crx) 4 Mg/Ml Inj IV PUSH Q2H PRN Pain Rated 7-10 Ticagrelor 90 mg 03/31/25 12:00 04/01/25 21:10 Ticagrelor 90 Mg Tablet PO 90 mg Q12HR ALVERTO Administration Radiology Results: ITS Impressions Head CT 03/30/25 13:55 IMPRESSION: 1. No acute intracranial process. 2. Mild scattered white matter hypoattenuation consistent with chronic small vessel ischemic disease. Chest/Abdomen/Pelvis CTA 03/30/25 14:09 IMPRESSION: 1. Normal caliber aorta with no dissection. No acute cardiopulmonary disease or acute intra-abdominal/pelvic process. 2. Large right inguinal hernia containing fat and nonobstructed loop of distal ileum and moderate-sized fat-containing left inguinal hernia. Renal Ultrasound 03/30/25 19:48 IMPRESSION: 1. No acute findings Chest X-Ray 03/31/25 08:40 IMPRESSION: 1. Interstitial pulmonary edema. Labs Labs: Laboratory Results - last 24 hr 04/01/25 04/01/25 04/01/25 03:41 11:12 16:34 WBC RBC Hgb Hct MCV MCH MCHC RDW Plt Count MPV Immature Gran % (Auto) Neut % (Auto) Lymph % (Auto) Gaines % (Auto) Eos % (Auto) Baso % (Auto) Lymph # (Auto) Gaines # (Auto) Eos # (Auto) Baso # (Auto) Abs Immat Gran (auto) Absolute Neuts (auto) Absolute Nucleated RBC Nucleated RBC % Sodium Potassium Chloride Carbon Dioxide Anion Gap BUN Creatinine Estim Creat Clear Calc Estimated GFR Glucose POC Capillary Glucose 290 H 195 H Calcium Phosphorus Magnesium Total Bilirubin AST ALT Alkaline Phosphatase NT-Pro-B Natriuret Pep 3900 H Total Protein Albumin 04/01/25 04/01/25 04/02/25 19:35 20:00 04:21 WBC 11.3 H RBC 4.76 Hgb 13.9 L Hct 41.7 L MCV 87.6 MCH 29.2 MCHC 33.3 RDW 13.2 Plt Count 204 MPV 11.8 H Immature Gran % (Auto) 0.5 Neut % (Auto) 60.4 Lymph % (Auto) 25.2 Gaines % (Auto) 11.6 H Eos % (Auto) 1.8 Baso % (Auto) 0.5 Lymph # (Auto) 2.84 Gaines # (Auto) 1.3 H Eos # (Auto) 0.2 Baso # (Auto) 0.1 Abs Immat Gran (auto) 0.06 H Absolute Neuts (auto) 6.8 H Absolute Nucleated RBC 0.000 Nucleated RBC % 0.0 Sodium 135 L 135 L Potassium 3.3 L 3.1 L Chloride 99 102 Carbon Dioxide 32 H 26 Anion Gap 4 7 BUN 37 H D 34 H Creatinine 1.91 H 1.74 H Estim Creat Clear Calc 48 53 Estimated GFR 38 L 42 L Glucose 220 H 164 H POC Capillary Glucose 199 H Calcium 8.7 8.6 Phosphorus 3.3 Magnesium 2.2 Total Bilirubin 1.1 AST 69 H ALT 40 Alkaline Phosphatase 73 NT-Pro-B Natriuret Pep Total Protein 7.0 Albumin 3.6 04/02/25 07:01 WBC RBC Hgb Hct MCV MCH MCHC RDW Plt Count MPV Immature Gran % (Auto) Neut % (Auto) Lymph % (Auto) Gaines % (Auto) Eos % (Auto) Baso % (Auto) Lymph # (Auto) Gaines # (Auto) Eos # (Auto) Baso # (Auto) Abs Immat Gran (auto) Absolute Neuts (auto) Absolute Nucleated RBC Nucleated RBC % Sodium Potassium Chloride Carbon Dioxide Anion Gap BUN Creatinine Estim Creat Clear Calc Estimated GFR Glucose POC Capillary Glucose 169 H Calcium Phosphorus Magnesium Total Bilirubin AST ALT Alkaline Phosphatase NT-Pro-B Natriuret Pep Total Protein Albumin
[2025-04-02] MEDS: ATORVASTATIN 40 MG TABLET 80 MG PO (09:03)
[2025-04-02] MEDS: TICAGRELOR 90 MG TABLET PO ×2 (09:03→20:48)
[2025-04-02] MEDS: METOPROLOL TARTRATE 50 MG TAB PO ×2 (09:03→20:48)
[2025-04-02] MEDS: ISOSORBIDE MONONITRATE 30 MG TAB.ER.24H PO (09:03)
[2025-04-02] MEDS: ASPIRIN 81 MG ENTERIC TABLET PO (09:04)
[2025-04-02] MEDS: INSULIN GLARGINE (*BKC) 100 UNITS/ML 15 UNITS SUB-Q (09:04)
[2025-04-02] MEDS: POTASSIUM CHLORIDE 20 MEQ ER TABLET 40 MEQ PO (09:15)
[2025-04-02] MEDS: INSULIN ASPART (*BKC) 100 UNITS/ML SUB-Q ×3 (12:08→20:48)
--- NOTE | 2025-04-02 12:10 | P.DS_ITS ---
DS: Admitting Diagnosis Discharge Date 04/02/2025 Admitting Diagnosis Acute non ST segment elevation myocardial infarction Hypertensive emergency DS: Discharge Diagnosis Discharge Diagnosis (1) NSTEMI (non-ST elevated myocardial infarction): Code(s): I21.4 - Non-ST elevation (NSTEMI) myocardial infarction Status: Acute (2) Old anteroseptal myocardial infarction: Code(s): I25.2 - Old myocardial infarction Status: Acute (3) Acute kidney injury: Code(s): N17.9 - Acute kidney failure, unspecified Status: Acute (4) Diabetes: Code(s): E11.9 - Type 2 diabetes mellitus without complications Status: Acute (5) Hypertensive emergency: Code(s): I16.1 - Hypertensive emergency Status: Acute Plan Impression: 1. Patient with known history of coronary disease and acute microinfarction back in 2018. Subsequent coronary angiography revealed total occlusion of the left anterior descending artery. She is post acute intervention with placement of drug-eluting stent. Patient has been noncompliant for his cardiology follow-up. -status post acute intervention with angiogram showing subtotal occlusion of the left anterior descending artery distal to the stent as well as InStent stenosis. Status post intervention with LEIGH placement. Patient is stable postop. 2. Accelerated hypertension on this admission. Patient is noncompliant with his medications. Blood pressure was as high as 214/137 mm of mercury. Patient was given sublingual nitroglycerin. -blood pressure now improved. 3. Acute non ST segment elevation myocardial infarction. EKG reveals old anteroseptal myocardial infarction with mild ST changes which likely represents dyskinesis involving anterior wall from previous myocardial infarction. -cannot rule out some myocardial injury due to ST elevation in the anterior leads. Will follow up EKG. 4. Creatinine now increased from 1.4 to 1.7. Patient currently not on any medication that will affect creatinine 30. Continue to avoid ALFREDO inhibitors and ARB use and diuretics. Needs follow-up creatinine as an outpatient. Potassium remains low at 3.1. Will continue with KCL tablet 10 mEq p.o. daily. 5. Persistent left arm pain. Likely secondary to accelerated hypertension. Could also be from acute myocardial infarction. Now resolved. 6. Patient had rather acute pulmonary edema last night requiring IV Lasix. Clinically stable without any recurrent chest pain or shortness of breath. Recommendations; #. Successful angioplasty of the left anterior descending artery with LEIGH placement. Angiogram site is stable without hematoma or vascular problems. #. Blood pressure now stabilized. Patient currently on metoprolol 50 mg b.i.d. amlodipine 5 mg daily. Will avoid Alfredo inhibitors due to elevated creatinine of 1.5. Blood pressure is 131/93 mm of mercury this morning. #. Lab data reviewed. WBC count 11.3. Hemoglobin is 13.9 and platelets are normal. Sodium 135, potassium 3.1, BUN is 34 and creatinine is 1.7 #. Twelve lead EKG today. Monitor shows significant ST elevation. Patient may have sustained an anterior wall injury or possibly stunned myocardium EKG from 04/01/2025 revealed old anteroseptal myocardial infarction with ST elevation in the same leads suggesting evolving acute anteroseptal myocardial infarction. #. Continue with aspirin and Brilinta. #. Echocardiogram reviewed from 03/30/2025. The left ventricular size is normal platelets 2 ejection fraction 50-55%. Mild left ventricular hypertrophy is noted. There is grade 1 diastolic dysfunction. The apical septum, apical cap basal anteroseptal and mid anteroseptal segments are hypokinetic. Suggesting LAD territory DS: Summary Hospital Course Reason for hospitalization: Acute myocardial infarction. Hospital Course: Hypertensive urgency on admission requiring IV beta-blockers. Subsequently improved. Cardiac catheterization next day revealed reocclusion within the stent as well as distal to the stent in LAD. Status post angioplasty with drug- eluting stent placement. Postoperative course was uncomplicated and patient remained stable. Creatinine is slightly increased from 1.4-1.7. Patient is not on any medication that will affect kidney function. Potassium was 3.1. Will substitute. No recurrent chest pain, shortness of breath. Blood pressure remained stable and patient was discharged home on 04/02/2025 in stable condition. Time spent discussing smoking cessation with patient: more than 10 minutes Time Spent with Patient Time attestation: Total time spent providing and/or coordinating discharge services: Exam Narrative: Patient was examined at the bedside. Patient is awake alert appears comfortable except for the left arm pain. Head and neck examination is unremarkable. Head is atraumatic. Sclerae nonicteric. ENT examination is negative. Neck is supple. There is no JVD or carotid bruit. Thyroid is not enlarged. There is no cervical lymphadenopathy. Lungs are clear to auscultation percussion. Heart sounds reveal normal S1-S2. No significant murmurs S3 or S4 noted. Rhythm is regular Abdomen is soft and nontender. There is no hepatosplenomegaly. Bowel sounds are present. Neurological examination is intact. Skin and musculoskeletal is normal. DS: Data Data Completed and Pending Labs on day of discharge: Labs from last 24 hours 04/02/25 04/02/25 04/02/25 11:15 07:01 04:21 WBC 11.3 H RBC 4.76 Hgb 13.9 L Hct 41.7 L MCV 87.6 MCH 29.2 MCHC 33.3 RDW 13.2 Plt Count 204 MPV 11.8 H Immature Gran % (Auto) 0.5 Neut % (Auto) 60.4 Lymph % (Auto) 25.2 [place] % (Auto) 11.6 H Eos % (Auto) 1.8 Baso % (Auto) 0.5 Lymph # (Auto) 2.84 [place] # (Auto) 1.3 H Eos # (Auto) 0.2 Baso # (Auto) 0.1 Abs Immat Gran (auto) 0.06 H Absolute Neuts (auto) 6.8 H Absolute Nucleated RBC 0.000 Nucleated RBC % 0.0 Sodium 135 L Potassium 3.1 L Chloride 102 Carbon Dioxide 26 Anion Gap 7 BUN 34 H Creatinine 1.74 H Estim Creat Clear Calc 53 Estimated GFR 42 L Glucose 164 H POC Capillary Glucose 223 H 169 H Calcium 8.6 Phosphorus 3.3 Magnesium 2.2 Total Bilirubin 1.1 AST 69 H ALT 40 Alkaline Phosphatase 73 NT-Pro-B Natriuret Pep Total Protein 7.0 Albumin 3.6 Anti-LUDY 65 Antibody Pending Zinc Transporter 8 Ab Pending 04/01/25 04/01/25 04/01/25 20:00 19:35 16:34 WBC RBC Hgb Hct MCV MCH MCHC RDW Plt Count MPV Immature Gran % (Auto) Neut % (Auto) Lymph % (Auto) [place] % (Auto) Eos % (Auto) Baso % (Auto) Lymph # (Auto) [place] # (Auto) Eos # (Auto) Baso # (Auto) Abs Immat Gran (auto) Absolute Neuts (auto) Absolute Nucleated RBC Nucleated RBC % Sodium 135 L Potassium 3.3 L Chloride 99 Carbon Dioxide 32 H Anion Gap 4 BUN 37 H D Creatinine 1.91 H Estim Creat Clear Calc 48 Estimated GFR 38 L Glucose 220 H POC Capillary Glucose 199 H 195 H Calcium 8.7 Phosphorus Magnesium Total Bilirubin AST ALT Alkaline Phosphatase NT-Pro-B Natriuret Pep Total Protein Albumin Anti-LUDY 65 Antibody Zinc Transporter 8 Ab 04/01/25 03:41 WBC RBC Hgb Hct MCV MCH MCHC RDW Plt Count MPV Immature Gran % (Auto) Neut % (Auto) Lymph % (Auto) [place] % (Auto) Eos % (Auto) Baso % (Auto) Lymph # (Auto) [place] # (Auto) Eos # (Auto) Baso # (Auto) Abs Immat Gran (auto) Absolute Neuts (auto) Absolute Nucleated RBC Nucleated RBC % Sodium Potassium Chloride Carbon Dioxide Anion Gap BUN Creatinine Estim Creat Clear Calc Estimated GFR Glucose POC Capillary Glucose Calcium Phosphorus Magnesium Total Bilirubin AST ALT Alkaline Phosphatase NT-Pro-B Natriuret Pep 3900 H Total Protein Albumin Anti-LUDY 65 Antibody Zinc Transporter 8 Ab Discharge Plan Discharge Attending physician on discharge: Sridhar Nation Consulting providers: Sridhar Nation; Silverio Wolf Discharging Clinician: Sridhar Nation Anticipated Discharge Date/Time: 04/02/25 11:56 Patient Disposition: Home Activity: as tolerated and other - see discharge instructions Diet: heart healthy Wound Care Instructions: remove dressing to shower Discharge Instructions: [facility] [address] [place] [address] DISCHARGE INSTRUCTIONS - POST PCI Activity 1. No driving until 2 days post procedure 2. No lifting, pushing or pulling more than 10 pounds for 1 week. 3. No strenuous exercise or activity (including sexual activity) until you are released to do so. 4. May shower but no tub baths or swimming pool for 1 week. Avoid commercial hot tubs. They are too hot. Medications DO NOT STOP YOUR MEDICATIONS ONLY YOUR STUFFED CASING TIER CAN STOP THE FOLLOWING MEDICATIONS - PLEASE CALL THE OFFICE WITH QUESTIONS. *Aspirin *Ticagrelor (Brilinta) *Atorvastatin *Lisinopril or ARB *Metoprolol tartrate or succinate Important Reminders 1. Keep your stent card in your wallet at all times 2. Follow a heart healthy diet paying extra attention to cholesterol and fats. 3. Stay hydrated. 4. If you have chest pain unrelieved by rest or nitroglycerin (if prescribed) call 911 immediately. 5. If you miss one dose of Brilinta (if prescribed) take a tablet at the next time due. If you miss 2 doses take a tablet when you remember and resume at the next time due. *For any other questions please call the office at [phone]. Office hours are 8AM 4:30PM Thursday through Thursday. Patient Instructions: Antibiotic Form Patient Language: Nepali Stand Alone Forms: General Discharge Information Follow-up/Referrals: Nawaf Johansen MD [Physician, Hospitalist] Referral Note: Status post repeat angioplasty of LAD. For follow-up Discharge Medications: New ticagrelor [Brilinta] 90 mg Tablet 90 mg PO Q12HR Qty: 60 2RF metoprolol tartrate 50 mg Tablet 50 mg PO Q12HR Qty: 60 1RF aspirin 81 mg Tablet,Delayed Release (Dr/Ec) 81 mg PO QAM Qty: 50 0RF hydralazine 25 mg Tablet 25 mg PO Q8HR Qty: 90 1RF atorvastatin 40 mg Tablet 80 mg PO DAILY Qty: 30 0RF acetaminophen 500 mg Tablet 500 mg PO Q6H PRN (Reason: Mild Pain (1-3) Or Fever) Qty: 30 0RF amlodipine [Norvasc] 5 mg Tablet 5 mg PO DAILY Qty: 30 1RF isosorbide mononitrate 30 mg Tablet Extended Release 24 Hr 30 mg PO QAM Qty: 30 1RF Discontinued aspirin 81 mg tablet 162 mg PO DAILY Date of admission: 03/31/25 09:32 Primary Care Provider: PHYSICIAN,DIE ASSEMBLER Admitting Provider: Marii Grissom Attending physician on admission: Marii Grissom Condition: Serious
[2025-04-02 13:38] LABS: Anion Gap 6 mmol/L (4-12); Blood Urea Nitrogen 36 mg/dL (9-20); Calcium 8.6 mg/dL (8.4-10.2); Carbon Dioxide 28 mmol/L (22-30); Chloride 101 mmol/L (98-107); Estimated CRCL calculation 43 ml/min; Estimated Glomerular Filt Rate 33; Glucose 228 mg/dL (65-110); Potassium 3.5 mmol/L (3.4-5.0); Sodium 135 mmol/L (137-145)
[2025-04-03] VITALS (7 sets, daily range): BP systolic 123–147; BP diastolic 75–101; PULSE 72–92; RESP 8–18; TEMP 36.5–36.7; O2SAT 95–98; BMI 32.0
[2025-04-03 04:43] LABS: Hematocrit 39.4 % (42.0-52.0); Hemoglobin 13.2 g/dL (14.0-18.0); Immature Granulocyte Percent A 0.6 % (0-0.5); Lymphocytes Absolute Auto 2.67 K/mm3 (0.9-3.2); Mean Corpuscular HGB Conc 33.5 g/dl (32-36); Mean Corpuscular Hemoglobin 28.9 pg (26-34); Mean Corpuscular Volume 86.4 fl (80-100); Nucleated Red Blood Cells Absolute Auto 0.000 K/mm3 (0.0-0.012); Nucleated Red Blood Cells Perc 0.0 % (0.0-0.2); Platelet Count Result 214 k/mm3 (150-375); Red Blood Count 4.56 M/mm3 (4.6-6.20); White Blood Count 10.5 K/mm3 (4.5-10.0)
[2025-04-03 05:07] LABS: Alanine Aminotransferase 35 U/L (6-50); Albumin Level 3.7 g/dL (3.5-5.1); Alkaline Phosphatase 64 U/L (38-126); Anion Gap 8 mmol/L (4-12); Aspartate Amino Transferase 48 U/L (17-59); Bilirubin,Total 0.9 mg/dL (0.2-1.3); Blood Urea Nitrogen 34 mg/dL (9-20); Calcium 8.8 mg/dL (8.4-10.2); Carbon Dioxide 25 mmol/L (22-30); Chloride 103 mmol/L (98-107); Estimated CRCL calculation 56 ml/min; Estimated Glomerular Filt Rate 45; Glucose 149 mg/dL (65-110); Magnesium 2.1 mg/dL (1.6-2.3); Potassium 3.3 mmol/L (3.4-5.0); Sodium 136 mmol/L (137-145); Total Protein 6.9 g/dL (6.3-8.2)
[2025-04-03] MEDS: TICAGRELOR 90 MG TABLET PO (09:03)
[2025-04-03] MEDS: METOPROLOL TARTRATE 50 MG TAB PO (09:03)
[2025-04-03] MEDS: ISOSORBIDE MONONITRATE 30 MG TAB.ER.24H PO (09:03)
[2025-04-03] MEDS: INSULIN GLARGINE (*BKC) 100 UNITS/ML 15 UNITS SUB-Q (09:03)
[2025-04-03] MEDS: ASPIRIN 81 MG ENTERIC TABLET PO (09:03)
[2025-04-03] MEDS: ATORVASTATIN 40 MG TABLET 80 MG PO (09:04)
--- NOTE | 2025-04-03 10:43 | P.PNCA_ITS ---
Progress Note: A&P Assessment and Plan (1) CAD (coronary artery disease): Qualifiers: Coronary Disease-Associated Artery/Lesion type: [place] artery [place] vs. transplanted heart: [place] heart Associated angina: with unstable angina Qualified Code(s): I25.110 - Atherosclerotic heart disease of [place] coronary artery with unstable angina pectoris Code(s): I25.10 - Atherosclerotic heart disease of [place] coronary artery without angina pectoris Status: Acute (2) Old anteroseptal myocardial infarction: Code(s): I25.2 - Old myocardial infarction Status: Acute (3) Elevated serum creatinine: Code(s): R79.89 - Other specified abnormal findings of blood chemistry Status: Acute (4) Hypertensive emergency: Code(s): I16.1 - Hypertensive emergency Status: Acute (5) NSTEMI (non-ST elevated myocardial infarction): Code(s): I21.4 - Non-ST elevation (NSTEMI) myocardial infarction Status: Acute Plan Impression: 1. Patient with known history of coronary disease and acute microinfarction back in 2018. Subsequent coronary angiography revealed total occlusion of the left anterior descending artery. She is post acute intervention with placement of drug-eluting stent. Patient has been noncompliant for his cardiology follow-up. -status post acute intervention with angiogram showing subtotal occlusion of the left anterior descending artery distal to the stent as well as InStent stenosis. Status post intervention with LEIGH placement. Patient is stable postop. 2. Accelerated hypertension on this admission. Patient is noncompliant with his medications. Blood pressure was as high as 214/137 mm of mercury. Patient was given sublingual nitroglycerin. -blood pressure now improved. 3. Acute non ST segment elevation myocardial infarction. EKG reveals old anteroseptal myocardial infarction with mild ST changes which likely represents dyskinesis involving anterior wall from previous myocardial infarction. -cannot rule out some myocardial injury due to ST elevation in the anterior leads. Will follow up EKG. 4. Mildly elevated creatinine in 1.4 on admission subsequently increased to 1.7 and 2.1. Discharge was hold her due to elevated creatinine. 5. Persistent left arm pain. Likely secondary to accelerated hypertension. Could also be from acute myocardial infarction. 6. Patient had rather acute pulmonary edema last night requiring IV Lasix. Clinically stable without any recurrent chest pain or shortness of breath. Recommendations; #. Successful angioplasty of the left anterior descending artery with LEIGH placement. Angiogram site is stable without hematoma or vascular problems. #. Blood pressure not stabilized. Patient currently on metoprolol 50 mg b.i.d. amlodipine 5 mg daily. Will avoid Alfredo inhibitors due to elevated creatinine of 1.5 #. Lab data reviewed. Sodium 136 potassium 3.1, BUN 22 g 1.5. #. Twelve lead EKG today. Monitor shows significant ST elevation. Patient may have sustained an anterior wall injury or possibly stunned myocardium. #. Continue with aspirin and Brilinta. Echocardiogram reviewed from 03/30/20 which showed normal left ventricular size and systolic function estimated at 50-55%. Grade 1 diastolic dysfunction was noted. Hypokinetic mid anterior wall, apex and septum were noted test suggesting LAD territory disease and possible injury #. Creatinine increased from 1.7 to 2.1 yesterday. Patient was watched overnight and subsequently now creatinine decreased to 1.65. Potassium also increased to 3.3. Sodium is 136. Patient likely had acute renal insult from coronary angiography and contrast agent. Now improved. Continue potassium supplement in outpatient monitoring of creatinine. Overall okay to discharge patient home from cardiac viewpoint. Follow-up patient with cardiology service. Currently blood pressure 147/101. Heart rate is 83 per minute. Recommend increase metoprolol but change to metoprolol succinate 100 mg b.i.d. increase hydralazine to 50 mg t.i.d. Subjective Date/time seen: 04/03/25 10:43 Interval history: Review of HPI: Patient with known history of coronary disease and history of LAD angioplasty with stent placement in 2018 presents with persistent left upper extremity pain and elevated cardiac enzymes. Patient was diagnosed with acute non ST segment elevation myocardial infarction subsequently underwent cardiac catheterization yesterday which showed subtotal occlusion of LAD and required insertion of stent. There was InStent stenosis as well as the distal to the stent. The procedure was successful and patient is doing well postoperatively. Blood pressure was markedly elevated on admission which which was treated with metoprolol and nitroglycerin. Subjective; Patient was examined at the bedside. Patient is sitting in a chair and appears comfortable. Heart rate and blood pressure are stable. His the right groin at the site of angiogram and angioplasty is stable without hematoma and good femoral pulses Pred No complaints of shortness of breath, chest pain or leg edema. Monitor shows normal sinus rhythm. Review of Systems Review of Systems: Twelve point review of system was completed. Pertinent positive and negative findings per HPI. Cardiovascular negative for chest pain, shortness of breath, palpitations. Pulmonary system negative for shortness of breath or cough or hemoptysis blood Gastrointestinal negative for abdominal pain, nausea vomiting or diarrhea. Neurovascular negative for any new neurological changes, seizures, syncope. Exam Narrative: Patient was examined at the bedside. Patient is awake alert appears comfortable except for the left arm pain. Head and neck examination is unremarkable. Head is atraumatic. Sclerae nonicteric. ENT examination is negative. Neck is supple. There is no JVD or carotid bruit. Thyroid is not enlarged. There is no cervical lymphadenopathy. Lungs are clear to auscultation percussion. Heart sounds reveal normal S1-S2. No significant murmurs S3 or S4 noted. Rhythm is regular Abdomen is soft and nontender. There is no hepatosplenomegaly. Bowel sounds are present. Neurological examination is intact. Skin and musculoskeletal is normal. Objective Data Vital Signs Vital Signs: Vital Signs - 24 hr 04/02/25 13:15 04/02/25 16:00 04/02/25 17:00 Temperature 37.0 C Pulse Rate 81 86 90 Respiratory Rate 16 Blood Pressure 115/70 Pulse Oximetry 98 Oxygen Delivery Fraction of Inspired Oxygen 04/02/25 20:00 04/02/25 20:36 04/02/25 20:48 Temperature Pulse Rate 93 93 93 Respiratory Rate 20 20 Blood Pressure Pulse Oximetry 100 100 Oxygen Delivery Room Air Room Air Fraction of Inspired Oxygen 21 21 04/02/25 20:53 04/02/25 21:00 04/02/25 23:49 Temperature 36.7 C 36.8 C Pulse Rate 88 93 81 Respiratory Rate 17 20 Blood Pressure 131/83 122/79 Pulse Oximetry 97 96 Oxygen Delivery Fraction of Inspired Oxygen 04/03/25 00:00 04/03/25 03:17 04/03/25 07:57 Temperature 36.5 C Pulse Rate 83 72 83 Respiratory Rate 18 Blood Pressure 147/101 H Pulse Oximetry 95 Oxygen Delivery Fraction of Inspired Oxygen 04/03/25 08:00 04/03/25 09:03 Temperature Pulse Rate 88 Respiratory Rate Blood Pressure Pulse Oximetry Oxygen Delivery Room Air Fraction of Inspired Oxygen Intake/Output Intake/Output: Intake & Output 03/31/25 04/01/25 04/02/25 04/03/25 23:59 23:59 23:59 23:59 Intake Total 630.5 1090 1570 560 Output Total 2700 1050 0 6 Balance -2069.5 40 1570 554 Meds/Results Medications: Active Medications Generic Name Dose Route Start Last Admin Trade Name Freq PRN Reason Stop Dose Admin Acetaminophen 1,000 mg 03/30/25 20:51 03/30/25 21:25 Acetaminophen 500 Mg Tablet PO 1,000 mg Q6H PRN Administration Mild Pain (1-3) or Fever Amlodipine Besylate 5 mg 03/31/25 13:00 04/03/25 09:03 Amlodipine Besylate 5 Mg Tablet PO 5 mg DAILY ALVERTO Administration Aspirin 81 mg 03/31/25 09:00 04/03/25 09:03 Aspirin 81 Mg Enteric Tablet PO 81 mg QAM ALVERTO Administration Atorvastatin Calcium 80 mg 03/31/25 09:00 04/03/25 09:04 Atorvastatin 40 Mg Tablet PO 80 mg DAILY ALVERTO Administration Dextrose 12.5 gm 03/30/25 12:58 Dextrose 50% 25 Gm/50 Ml Syringe IV PUSH PRN PRN Hypoglycemia Protocol Glucagon 1 mg 03/30/25 12:58 Glucagon For Inj 1 Mg Vial IM PRN PRN Hypoglycemia Protocol Glucose 15 gm 03/30/25 12:58 Glucose Oral Gel 15 Gm Of Glucse In 37.5 Gm Tube PO PRN PRN Hypoglycemia Protocol Hydralazine HCl 25 mg 04/01/25 22:00 04/03/25 05:42 Hydralazine Hcl 25 Mg Tablet PO 25 mg Q8HR ALVERTO Administration Insulin Aspart 3 - 6 units 03/30/25 17:00 04/03/25 07:55 Insulin Aspart (*Bkc) 100 Units/Ml SUB-Q Not Given TIDWM [facility] Protocol Insulin Aspart 1 - 3 units 03/30/25 21:00 04/02/25 20:48 Insulin Aspart (*Bkc) 100 Units/Ml SUB-Q 1 units HS ALVERTO Administration Protocol Insulin Glargine 15 units 03/31/25 09:00 04/03/25 09:03 Insulin Glargine (*Bkc) 100 Units/Ml SUB-Q 15 units QAM ALVERTO Administration Isosorbide Mononitrate 30 mg 04/01/25 13:00 04/03/25 09:03 Isosorbide Mononitrate 30 Mg Tab.Er.24h PO 30 mg QAM ALVERTO Administration Metoprolol Tartrate 50 mg 03/30/25 21:00 04/03/25 09:03 Metoprolol Tartrate 50 Mg Tab PO 50 mg Q12HR ALVERTO Administration Morphine Sulfate 4 mg 03/30/25 13:03 Morphine Sulfate (*Crx) 4 Mg/Ml Inj IV PUSH Q2H PRN Pain Rated 7-10 Ticagrelor 90 mg 03/31/25 12:00 04/03/25 09:03 Ticagrelor 90 Mg Tablet PO 90 mg Q12HR ALVERTO Administration Radiology Results: ITS Impressions Head CT 03/30/25 13:55 IMPRESSION: 1. No acute intracranial process. 2. Mild scattered white matter hypoattenuation consistent with chronic small vessel ischemic disease. Chest/Abdomen/Pelvis CTA 03/30/25 14:09 IMPRESSION: 1. Normal caliber aorta with no dissection. No acute cardiopulmonary disease or acute intra-abdominal/pelvic process. 2. Large right inguinal hernia containing fat and nonobstructed loop of distal ileum and moderate-sized fat-containing left inguinal hernia. Renal Ultrasound 03/30/25 19:48 IMPRESSION: 1. No acute findings Chest X-Ray 03/31/25 08:40 IMPRESSION: 1. Interstitial pulmonary edema. Labs Labs: Laboratory Results - last 24 hr 04/02/25 04/02/25 04/02/25 11:15 13:06 16:08 WBC RBC Hgb Hct MCV MCH MCHC RDW Plt Count MPV Immature Gran % (Auto) Neut % (Auto) Lymph % (Auto) [place] % (Auto) Eos % (Auto) Baso % (Auto) Lymph # (Auto) [place] # (Auto) Eos # (Auto) Baso # (Auto) Abs Immat Gran (auto) Absolute Neuts (auto) Absolute Nucleated RBC Nucleated RBC % Sodium 135 L Potassium 3.5 Chloride 101 Carbon Dioxide 28 Anion Gap 6 BUN 36 H Creatinine 2.14 H Estim Creat Clear Calc 43 Estimated GFR 33 L Glucose 228 H POC Capillary Glucose 223 H 201 H Calcium 8.6 Phosphorus Magnesium Total Bilirubin AST ALT Alkaline Phosphatase Total Protein Albumin 04/02/25 04/03/25 04/03/25 20:16 04:15 07:21 WBC 10.5 H RBC 4.56 L Hgb 13.2 L Hct 39.4 L MCV 86.4 MCH 28.9 MCHC 33.5 RDW 13.0 Plt Count 214 MPV 11.7 H Immature Gran % (Auto) 0.6 H Neut % (Auto) 58.4 Lymph % (Auto) 25.3 [place] % (Auto) 11.9 H Eos % (Auto) 3.2 Baso % (Auto) 0.6 Lymph # (Auto) 2.67 [place] # (Auto) 1.3 H Eos # (Auto) 0.3 Baso # (Auto) 0.1 Abs Immat Gran (auto) 0.06 H Absolute Neuts (auto) 6.2 Absolute Nucleated RBC 0.000 Nucleated RBC % 0.0 Sodium 136 L Potassium 3.3 L Chloride 103 Carbon Dioxide 25 Anion Gap 8 BUN 34 H Creatinine 1.65 H Estim Creat Clear Calc 56 Estimated GFR 45 L Glucose 149 H POC Capillary Glucose 206 H 135 H Calcium 8.8 Phosphorus 3.5 Magnesium 2.1 Total Bilirubin 0.9 AST 48 ALT 35 Alkaline Phosphatase 64 Total Protein 6.9 Albumin 3.7
--- NOTE | 2025-04-03 12:24 | P.CDI_ITS ---
CDI Query Clarification Request Hypoxia has been documented Please review the clinical information below and clarify the respiratory diagnosis the patient is being treated for: * Hypoxia or hypoxemia without respiratory failure * Respiratory distress without respiratory failure * Acute respiratory failure with hypoxia * Acute respiratory failure with hypercapnia * Acute respiratory failure with hypoxia and hypercapnia * Acute on chronic respiratory failure with hypoxia * Acute on chronic respiratory failure with hypercapnia * Acute on chronic respiratory failure with hypoxia and hypercapnia * Acute respiratory distress syndrome (ARDS) * Chronic respiratory failure with hypoxia * Chronic respiratory failure with hypercapnia * Chronic respiratory failure with hypoxia and hypercapnia * Other explanation clinical findings, please specify * Unable to determine Hospitalist documented: Hypoxia/pulmonary edema: Patient received fluids for renal protection and developed shortness of breath and pulmonary edema. He was on CPAP in the ICU for a few hours on 03/31/2025. Received Lasix as well. Discontinued due to his elevated serum creatinine. Was doing well on 2 L nasal cannula. Wean to room air on 04/02/2025. TTE on 03/30/2025 demonstrates EF 50-55%, mild left ventricular hypertrophy, grade 1 diastolic dysfunction, hypokinesis of the LAD territory. Daily weights, intake/output. Continue incentive spirometer Bone Grinder documented: (1) NSTEMI (non-ST elevated myocardial infarction): Code(s): I21.4 - Non-ST elevation (NSTEMI) myocardial infarction Status: Acute Assessment and Plan: Presented with left arm pain which I although appears noncardiac in nature but patient states that pain is similar to the 1 he had when he had NH in 2017 Noncompliant with medications Abnormal EKG and elevated troponin Evaluated by Cardiology in ER and diagnosed with NSTEMI Serial troponin were done Chest CTA negative for dissection. 03/31 status post PCI and stent placement in LAD Statin, dual antiplatelet therapy, beta-lino, ARB Echo as below (2) Hypertensive emergency: Code(s): I16.1 - Hypertensive emergency Status: Acute Assessment and Plan: Presented with high blood pressure and elevated troponin Patient was on nitroglycerin infusion but now off Negative head CT Continue beta-lino, Norvasc and losartan. P.r.n. labetalol (3) Hyperglycemia: Code(s): R73.9 - Hyperglycemia, unspecified Status: Acute Assessment and Plan: Blood sugar elevated and HbA1c 8.9 Continue SSI Continue Lantus Consult dietitian and access service representative Diabetic diet (4) Elevated serum creatinine: Code(s): R79.89 - Other specified abnormal findings of blood chemistry Status: Acute Assessment and Plan: Creatinine elevated with baseline unknown. CK not significantly elevated urine electrolytes pending UA negative renal ultrasound unremarkable Initially Improved with IV fluids but patient developed pulmonary edema and had to given diuretics. Patient also received contrast Now creatinine increased to 1.53. Will hold further Lasix. Monitor urine output electrolytes and creatinine (5) Hypoxia: Code(s): R09.02 - Hypoxemia Status: Acute Assessment and Plan: Secondary to pulmonary edema. Patient required CPAP for few hours yesterday. Patient received 2 dose of Lasix yesterday. Hold further Lasix. On 4 L nasal cannula Add incentive spirometry, up in chair (6) Pulmonary edema: Code(s): J81.1 - Chronic pulmonary edema Status: Acute Assessment and Plan: See above Echo shows 1. Left ventricular systolic function is normal, estimated at 50-55. 2. There is mildly increased left ventricular wall thickness. 3. The left ventricular diastolic function is grade I diastolic dysfunction. 4. The apical septum, apical cap, basal anteroseptal, and mid anteroseptal are hypokinetic. 5. Intact interatrial septum visualized by agitated saline imaging. 6. There is mild mitral valve regurgitation. <Kisha Dorman RN - Last Filed: 04/03/25 12:26> Clarified Diagnosis Clarified Diagnosis: * Acute respiratory failure with hypoxia <Summer Arrieta MD - Last Filed: 04/03/25 14:02>
--- NOTE | 2025-04-03 14:02 | P.DS_ITS ---
DS: Admitting Diagnosis Discharge Date 04/03/2025 Admitting Diagnosis LEft arm pain DS: Discharge Diagnosis Discharge Diagnosis (1) NSTEMI (non-ST elevated myocardial infarction): Code(s): I21.4 - Non-ST elevation (NSTEMI) myocardial infarction Status: Acute DS: Summary Hospital Course Hospital Course: HPI per admitting provider: 49 y/o M with PMH of myocardial infarction (2018) and HTN presents here with left arm pain. The patient presents here on 03/30 for further evaluation of left arm pain. He reports onset of LUE pain upon awakening this morning. He describes the pain as achy, nonradiating, constant, no aggravating or alleviating factors. LUE pain is accompanied by nausea and vomiting. He denies dizziness, palpitations, GERD- like symptoms, worsening fatigue, shortness of breath, or chest pain. He reports he has a PMH significant for an GA in 2018 that presented similarly, he was treated at [facility]. At that time he had one stent placed. He took 162 of ASA prior to arrival which had no effect, pain worsened. He arrived to the ED with a BP of 214/137. He reports a history of hypertension, however has not been compliant with his antihypertensive for the past 2 years. Since arrival to the ICU and reduction in his BP, the pain in his arm has decreased. He continues to deny chest pain, shortness of breath, N/V, or dizziness. He is reporting a headache - diffuse, no photo/phonophobia. Initial VS at presentation: 98.3? F, HR 89, RR 20, 214/137, and 96% on RA. ED workup showed: No leukocytosis, no anemia, normal coags, sodium 135, potassium 3.1, creatinine 1.4 and GFR 54, glucose 292, A1c 8.9%, and initial troponin 0.079. UA showed 2+ protein/3+ glucose. CXR showed mild pulmonary edema the mid to lower lungs. Head CT showed no acute intracranial process, mild scattered white matter hypoattenuation. Chest/abdomen/pelvis CTA Patient was managed for NSTEMI and underwent cardiac cath with stents to LAD. ECHO showed Ef 50-55% and grade I diastolic dysfunction. Discharged on ASpirin, Brilinta and Lipitor. Patient also managed for hypertension, discharged on amlodipine, hydralazine, Isosorbide mononitrate. BP controlled Managed for DM, likely type II, a1c 8.9 discharged on Lantus 15u, Metformin 500mg bid and SSI with accucheks F/u with PCP in 3-5 days F/u with cardiology as instructed Time Spent with Patient Time attestation: Total time spent providing and/or coordinating discharge services: DS: Data Data Completed and Pending Labs on day of discharge: Labs from last 24 hours 04/03/25 04/03/25 04/03/25 11:17 07:21 04:15 WBC 10.5 H RBC 4.56 L Hgb 13.2 L Hct 39.4 L MCV 86.4 MCH 28.9 MCHC 33.5 RDW 13.0 Plt Count 214 MPV 11.7 H Immature Gran % (Auto) 0.6 H Neut % (Auto) 58.4 Lymph % (Auto) 25.3 [place] % (Auto) 11.9 H Eos % (Auto) 3.2 Baso % (Auto) 0.6 Lymph # (Auto) 2.67 [place] # (Auto) 1.3 H Eos # (Auto) 0.3 Baso # (Auto) 0.1 Abs Immat Gran (auto) 0.06 H Absolute Neuts (auto) 6.2 Absolute Nucleated RBC 0.000 Nucleated RBC % 0.0 Sodium 136 L Potassium 3.3 L Chloride 103 Carbon Dioxide 25 Anion Gap 8 BUN 34 H Creatinine 1.65 H Estim Creat Clear Calc 56 Estimated GFR 45 L Glucose 149 H POC Capillary Glucose 166 H 135 H Calcium 8.8 Phosphorus 3.5 Magnesium 2.1 Total Bilirubin 0.9 AST 48 ALT 35 Alkaline Phosphatase 64 Total Protein 6.9 Albumin 3.7 04/02/25 04/02/25 20:16 16:08 WBC RBC Hgb Hct MCV MCH MCHC RDW Plt Count MPV Immature Gran % (Auto) Neut % (Auto) Lymph % (Auto) [place] % (Auto) Eos % (Auto) Baso % (Auto) Lymph # (Auto) [place] # (Auto) Eos # (Auto) Baso # (Auto) Abs Immat Gran (auto) Absolute Neuts (auto) Absolute Nucleated RBC Nucleated RBC % Sodium Potassium Chloride Carbon Dioxide Anion Gap BUN Creatinine Estim Creat Clear Calc Estimated GFR Glucose POC Capillary Glucose 206 H 201 H Calcium Phosphorus Magnesium Total Bilirubin AST ALT Alkaline Phosphatase Total Protein Albumin Discharge Plan Discharge Attending physician on discharge: Sridhar Nation Consulting providers: Sridhar Nation; Silverio Wolf Discharging Clinician: Sridhar Nation Anticipated Discharge Date/Time: 04/02/25 11:56 Patient Disposition: Home Activity: as tolerated and other - see discharge instructions Diet: heart healthy Wound Care Instructions: remove dressing to shower Discharge Instructions: [facility] [address] [place], [place] [id number] DISCHARGE INSTRUCTIONS - POST PCI Activity 1. No driving until 2 days post procedure 2. No lifting, pushing or pulling more than 10 pounds for 1 week. 3. No strenuous exercise or activity (including sexual activity) until you are released to do so. 4. May shower but no tub baths or swimming pool for 1 week. Avoid commercial hot tubs. They are too hot. Medications DO NOT STOP YOUR MEDICATIONS ONLY YOUR WEB CONTENT MANAGER CAN STOP THE FOLLOWING MEDICATIONS - PLEASE CALL THE OFFICE WITH QUESTIONS. *Aspirin *Ticagrelor (Brilinta) *Atorvastatin *Lisinopril or ARB *Metoprolol tartrate or succinate Important Reminders 1. Keep your stent card in your wallet at all times 2. Follow a heart healthy diet paying extra attention to cholesterol and fats. 3. Stay hydrated. 4. If you have chest pain unrelieved by rest or nitroglycerin (if prescribed) call 911 immediately. 5. If you miss one dose of Brilinta (if prescribed) take a tablet at the next time due. If you miss 2 doses take a tablet when you remember and resume at the next time due. *For any other questions please call the office at [phone]. Office hours are 8AM 4:30PM Thursday through Thursday. Patient Instructions: Antibiotic Form Patient Language: Iranian Stand Alone Forms: General Discharge Information Follow-up/Referrals: Nawaf Johansen MD [Physician, Hospitalist] Referral Note: Status post repeat angioplasty of LAD. For follow-up Discharge Medications: New ticagrelor [Brilinta] 90 mg Tablet 90 mg PO Q12HR Qty: 60 2RF (DME) blood-glucose meter [OneTouch Verio Flex meter] [facility] [place] Qty: 1 0RF Rx Instructions: May substitute to in-stock meter and/or covered by insurance. Use As Directed (DME) OneTouch Verio test strips Strip Qty: 1 0RF Rx Instructions: May substitute to in-stock and/or covered by insurance strips. Use As Directed (DME) pen needle, diabetic 32 gauge x 5/32 Needle Qty: 1 2RF Rx Instructions: tid (DME) lancets [OneTouch Delica Plus Lancet] 30 gauge misc Qty: 1 0RF Rx Instructions: May substitute to in-stock and/or covered by insurance lancets. Use As Directed (DME) insulin syringe,safety needle 0.5 mL 31 gauge x 5/16 Syringe Qty: 1 0RF Rx Instructions: As Directed metoprolol tartrate 50 mg Tablet 50 mg PO Q12HR Qty: 60 1RF aspirin 81 mg Tablet,Delayed Release (Dr/Ec) 81 mg PO QAM Qty: 50 0RF hydralazine 25 mg Tablet 25 mg PO Q8HR Qty: 90 1RF insulin glargine [Lantus Solostar U-100 Insulin] 100 unit/mL (3 mL) insulin pen 15 unit subcut QPM 30 Days Qty: 4.5 1RF insulin lispro [Humalog Mio KwikPen U-100] 100 unit/mL insulin pen, half- unit 1 sliding scale dose subcut USEASDIRECTD Qty: 15 0RF Rx Instructions: Blood Sugar (mg/dL) Rapid-Acting Insulin < 70Treat for hypoglycemia (low blood sugar). Notify provider. 70?150Within target range. 151?199, take 2 units of insulin 200?249, 4 units 250?299, 6 units 300?349, 8 units 350+, 10 units and call PCP office atorvastatin 40 mg Tablet 80 mg PO DAILY Qty: 30 0RF acetaminophen 500 mg Tablet 500 mg PO Q6H PRN (Reason: Mild Pain (1-3) Or Fever) Qty: 30 0RF amlodipine [Norvasc] 5 mg Tablet 5 mg PO DAILY Qty: 30 1RF isosorbide mononitrate 30 mg Tablet Extended Release 24 Hr 30 mg PO QAM Qty: 30 1RF metformin 500 mg tablet 500 mg PO BID 30 Days Qty: 60 0RF Discontinued aspirin 81 mg tablet 162 mg PO DAILY Date of admission: 03/31/25 09:32 Primary Care Provider: PHYSICIAN,AUTOMATIC MACHINES SUPERVISOR Admitting Provider: Marii Grissom Attending physician on admission: Marii Grissom Condition: Serious
[2025-04-05 18:07] LABS: GAD-65 Antibody <5.0 U/mL (0.0-5.0)
--- NOTE | 2025-04-07 16:16 | PCCDE ---
Attempted to place DM educator courtesy follow up call - outgoing recording stating ...the # you have reached has been disconnected or is no longer in service....call cannot be completed.
== END 2025-04-03 15:11 | disposition home or self-care (01) | DRG 321 ==
LOC: ANHED 11:52 → ANHICU 13:25 → ANHIMU 04-01 13:44
PROVIDERS: Internal Medicine; Internal Medicine Cardiovascular Disease; Admitting Provider General Practice; Emergency Provider Emergency Medicine; Visit Provider Internal Medicine
PROC: 4A023N7 Measurement of Cardiac Sampling and Pressure, Left Heart, Percutaneous Approach (ICD-10-PCS; CPT 93452; principal; 2025-03-31 09:00)
PROC: 027034Z Dilation of Coronary Artery, One Artery with Drug-eluting Intraluminal Device, Percutaneous Approach (ICD-10-PCS; 2025-03-31 09:00)
PROC: 027034Z Dilation of Coronary Artery, One Artery with Drug-eluting Intraluminal Device, Percutaneous Approach (ICD-10-PCS; 2025-03-31 09:00)
PROC: 027034Z Dilation of Coronary Artery, One Artery with Drug-eluting Intraluminal Device, Percutaneous Approach (ICD-10-PCS; 2025-03-31 09:00)
DX: T82.855A Stenosis of coronary artery stent, initial encounter (principal); I21.4 Non-ST elevation (NSTEMI) myocardial infarction; J96.01 Acute respiratory failure with hypoxia; I16.1 Hypertensive emergency; J81.1 Chronic pulmonary edema; N17.8 Other acute kidney failure; I25.10 Atherosclerotic heart disease of native coronary artery without angina pectoris; F10.90 Alcohol use, unspecified, uncomplicated; R73.9 Hyperglycemia, unspecified; M79.622 Pain in left upper arm; E87.6 Hypokalemia; T50.8X5A Adverse effect of diagnostic agents, initial encounter; I10 Essential (primary) hypertension; Z91.148 Patient's other noncompliance with medication regimen for other reason; Z95.5 Presence of coronary angioplasty implant and graft; I25.2 Old myocardial infarction; Z79.82 Long term (current) use of aspirin
CPT/HCPCS: 36415; 70450; 71045; 71275; 74174; 76770; 80048; 80053; 80061; 81001; 82550; 82570; 82948; 83036; 83690; 83735; 83880; 84100; 84300; 84443; 84484; 85025; 85610; 85730; 86341; 87641; 92978; 93005; 93306; 93458; 94002; 96372; 96374; 96375; 99291; A9270; C1725; C1753; C1769; C1874; C1887; C1894; C9600; G0269; G0378; J0360; J0583; J1327; J1644; J1650; J1815; J1938; J2003; J2250; J2270; J2305; J3010; J7030; J7040; J7060; J7120; L1830; Q9967